=== PATIENT | male | born 1955 | race Caucasian/White ===

== ENCOUNTER 2016-11-14 19:01 | Inpatient (IN) | payer MEDICAID, OTHER ==
[~2016-11-14] VITALS: Ht 188 cm; Wt 77.1 kg
[~2016-11-14 19:01] MED LIST: BUPR-93 PO; LEVO25TA9 PO; MUPI1OIN4 NS; MV-M1TAB2 PO; QUET200T PO
[2016-11-14] MEDS ORDERED: LORazepam 2 MG TABLET PO PRN (19:30)
[2016-11-14] MEDS ORDERED: ZOLPIDEM TARTRATE 10 MG TABLET PO PRN (19:30)
[2016-11-14] MEDS ORDERED: HALOPERIDOL 5 MG TABLET PO PRN (19:30)
[2016-11-14 20:05] VITALS: BP 139/72
[2016-11-14] MEDS: QUEtiapine FUMARATE 200 MG TABLET PO SCH (21:00)
[2016-11-14] MEDS ORDERED: ACETAMINOPHEN 500 MG TABLET PO ONE (21:30)
[2016-11-14] MEDS ORDERED: LORazepam 2 MG TABLET PO ONE (21:30)
[2016-11-14 21:38] LABS: BASOPHILS # (AUTO) 0.07 K/uL (0.00-0.20); BASOPHILS % (AUTO) 0.9 % (0.0-2.0); EOSINOPHILS # (AUTO) 0.42 K/uL (0.00-0.70); EOSINOPHILS % (AUTO) 5.41 % (1.0-6.0); HEMATOCRIT 37.4 % (41-53); HEMOGLOBIN 12.4 g/dL (13.5-17.5); LYMPHOCYTES # (AUTO) 1.4 K/uL (1.0-4.8); LYMPHOCYTES % (AUTO) 18.3 % (22.0-44.0); MEAN CORPUSCULAR HEMOGLOBIN 28.6 pg (26.0-34.0); MEAN CORPUSCULAR HGB CONC 33.3 G/dL (31.0-37.0); MEAN CORPUSCULAR VOLUME 86 fL (80-100); MONOCYTES # (AUTO) 0.8 K/uL (0.1-1.0); NEUTROPHILS % (AUTO) 65.4 % (40.0-70.0); PLATELET COUNT (AUTO) 246 K/uL (150-450); RED BLOOD CELL COUNT(AUTO) 4.34 MIL/uL (4.50-5.90); RED CELL DISTRIBUTION WIDTH 16.8 % (11.5-14.5); WHITE BLOOD COUNT (AUTO) 7.7 K/uL (4.5-11.0)
[2016-11-14 21:54] LABS: ANION GAP 5 mmol/L (8-16); CARBON DIOXIDE 35 mmol/L (22-29); CHLORIDE 99 mmol/L (98-107); CREATININE 0.98 mg/dL (0.60-1.30); GLOMERULAR FILTR. RATE CALC > 60 mL/min (>60); POTASSIUM 4.8 mmol/L (3.5-5.1); SODIUM SERUM 139 mmol/L (136-145); UREA NITROGEN, BLOOD 19 mg/dL (7-18)
[2016-11-14 22:04] LABS: ALANINE AMINOTRANSFERASE 21 U/L (12-78); ALBUMIN 3.3 g/dL (3.4-5.0); ASPARTATE AMINOTRANSFERASE 16 U/L (15-37); BILIRUBIN,TOTAL 0.2 mg/dL (0.1-1.0); TOTAL PROTEIN, SERUM 7.2 g/dL (6.4-8.2)
[2016-11-15 07:20] LABS: BASOPHILS # (AUTO) 0.02 K/uL (0.00-0.20); BASOPHILS % (AUTO) 0.5 % (0.0-2.0); EOSINOPHILS # (AUTO) 0.39 K/uL (0.00-0.70); EOSINOPHILS % (AUTO) 8.77 % (1.0-6.0); HEMATOCRIT 35.3 % (41-53); HEMOGLOBIN 11.8 g/dL (13.5-17.5); LYMPHOCYTES # (AUTO) 1.4 K/uL (1.0-4.8); LYMPHOCYTES % (AUTO) 31.3 % (22.0-44.0); MEAN CORPUSCULAR HEMOGLOBIN 28.6 pg (26.0-34.0); MEAN CORPUSCULAR HGB CONC 33.4 G/dL (31.0-37.0); MEAN CORPUSCULAR VOLUME 86 fL (80-100); MONOCYTES # (AUTO) 0.5 K/uL (0.1-1.0); MONOCYTES % (AUTO) 12.1 % (2.0-9.0); NEUTROPHILS # (AUTO) 2.1 K/uL (1.8-7.7); NEUTROPHILS % (AUTO) 47.3 % (40.0-70.0); PLATELET COUNT (AUTO) 251 K/uL (150-450); RED BLOOD CELL COUNT(AUTO) 4.12 MIL/uL (4.50-5.90); RED CELL DISTRIBUTION WIDTH 16.6 % (11.5-14.5); WHITE BLOOD COUNT (AUTO) 4.5 K/uL (4.5-11.0)
[2016-11-15 07:51] LABS: HEMOGLOBIN A1C 5.7 % (4.5-6.2)
[2016-11-15 07:54] LABS: ALANINE AMINOTRANSFERASE 17 U/L (12-78); ALBUMIN 2.7 g/dL (3.4-5.0); ANION GAP 7 mmol/L (8-16); ASPARTATE AMINOTRANSFERASE 16 U/L (15-37); BILIRUBIN,TOTAL 0.2 mg/dL (0.1-1.0); CALCIUM, TOTAL 8.3 mg/dL (8.8-10.5); CARBON DIOXIDE 29 mmol/L (22-29); CHLORIDE 103 mmol/L (98-107); CHOL/HDL RATIO 2.3 (4.2-7.3); CREATININE 1.02 mg/dL (0.60-1.30); GLOMERULAR FILTR. RATE CALC > 60 mL/min (>60); POTASSIUM 3.9 mmol/L (3.5-5.1); SODIUM SERUM 139 mmol/L (136-145); THYROID STIMULATING HORMONE 8.88 uIU/mL (0.36-3.74); TOTAL PROTEIN, SERUM 6.3 g/dL (6.4-8.2); UREA NITROGEN, BLOOD 22 mg/dL (7-18)
[2016-11-15] MEDS: BuPROPion HCL XL 150 MG ER TABLET PO SCH (11:01)
[2016-11-15 12:10] LABS: APPEARANCE,URINE CLEAR (CLEAR); GLUCOSE, URINE (UA) NEGATIVE (NEGATIVE); KETONES,URINE NEGATIVE (NEGATIVE); LEUKOCYTE ESTERASE ,URINE NEGATIVE (NEGATIVE); OCCULT BLOOD,URINE NEGATIVE (NEGATIVE); PROTEIN,URINE NEGATIVE (NEGATIVE)
[2016-11-15 12:12] LABS: ADD UA MICROSCOPIC NO
[2016-11-15 17:39] VITALS: BP 134/72
[2016-11-15] MEDS: QUEtiapine FUMARATE 200 MG TABLET PO SCH (20:08)
[2016-11-16] MEDS ORDERED: LEVOTHYROXINE SODIUM 25 MCG TABLET PO SCH (07:00)
[2016-11-16 08:00] VITALS: BP 127/77
[2016-11-16] MEDS ORDERED: ALBUTEROL SULFATE HFA 90 MCG/PUFF 8 GM INHALER IH PRN (08:45)
[2016-11-16] MEDS ORDERED: PETROLATUM,WHITE 71 GM JELLY TP PRN (08:45)
[2016-11-16] MEDS ORDERED: MAGNESIUM HYDROXIDE SUSPENSION 30 ML UDCUP PO PRN (08:45)
[2016-11-16] MEDS ORDERED: CloNIDine HCL 0.1 MG TABLET PO PRN (08:45)
[2016-11-16] MEDS ORDERED: BACITRACIN 28.4 GM OINTMENT TP PRN (08:45)
[2016-11-16] MEDS ORDERED: MAG HYDROX/AL HYDROX/SIMETH ES 30 ML SUSPENSION UDCUP PO PRN (08:45)
[2016-11-16] MEDS ORDERED: IBUPROFEN 600 MG TABLET PO PRN (08:45)
[2016-11-16] MEDS ORDERED: ONDANSETRON HCL 4 MG TABLET PO PRN (08:45)
[2016-11-16] MEDS ORDERED: LOPERAMIDE HCL 2 MG CAPSULE PO PRN (08:45)
[2016-11-16] MEDS ORDERED: ACETAMINOPHEN 325 MG TABLET PO PRN (08:45)
[2016-11-16] MEDS: BACITRACIN 28.4 GM OINTMENT TP SCH ×2 (09:00→17:00)
[2016-11-16] MEDS ORDERED: BENZOCAINE/MENTHOL LOZENGE [8 LOZENGES/PACKET] MM PRN (09:00)
[2016-11-16] MEDS: BuPROPion HCL XL 150 MG ER TABLET PO SCH (10:10)
[2016-11-16] MEDS: MULTIVITAMINS WITH MINERALS, THERAPEUTIC TABLET PO SCH (10:10)
[2016-11-16] MEDS ORDERED: HYDROCORTISONE 0.5% 30 GM CREAM TP PRN (13:00)
[2016-11-16 16:37] VITALS: BP 132/71
[2016-11-16] MEDS: QUEtiapine FUMARATE 200 MG TABLET PO SCH (20:05)
[2016-11-17] MEDS: LEVOTHYROXINE SODIUM 100 MCG TABLET PO SCH (06:45)
[2016-11-17 08:00] VITALS: BP 114/67
[2016-11-17] MEDS: BACITRACIN 28.4 GM OINTMENT TP SCH ×2 (09:00→16:44)
[2016-11-17] MEDS: MULTIVITAMINS WITH MINERALS, THERAPEUTIC TABLET PO SCH (09:20)
[2016-11-17] MEDS: BuPROPion HCL XL 150 MG ER TABLET PO SCH (09:21)
[2016-11-17 16:35] VITALS: BP 142/96
[2016-11-17] MEDS: QUEtiapine FUMARATE 200 MG TABLET PO SCH (20:07)
[2016-11-18] MEDS: LEVOTHYROXINE SODIUM 100 MCG TABLET PO SCH (06:06)
[2016-11-18 06:31] VITALS: BP 120/82
[2016-11-18 08:00] VITALS: BP 116/69
[2016-11-18] MEDS: BuPROPion HCL XL 150 MG ER TABLET PO SCH (09:26)
[2016-11-18] MEDS: MULTIVITAMINS WITH MINERALS, THERAPEUTIC TABLET PO SCH (09:26)
[2016-11-18] MEDS: BACITRACIN 28.4 GM OINTMENT TP SCH ×2 (09:29→16:26)
[2016-11-18 16:51] VITALS: BP 142/101
[2016-11-18] MEDS ORDERED: LEVO100 PO (17:08)
[2016-11-18] MEDS ORDERED: BACI30OI10 TP (17:15)
== END 2016-11-18 18:52 | disposition home or self-care (01) | DRG 750 ==
LOC: EMS 20:57 → 3EI 11-15 16:52
PROVIDERS: ADMIT Psychiatry & Neurology Psychiatry; ATTEND Psychiatry & Neurology Psychiatry
DX: F25.9 Schizoaffective disorder, unspecified (principal); R45.851 Suicidal ideations; E55.9 Vitamin D deficiency, unspecified; J44.9 Chronic obstructive pulmonary disease, unspecified; B18.2 Chronic viral hepatitis C; E03.9 Hypothyroidism, unspecified; K21.9 Gastro-esophageal reflux disease without esophagitis; K59.00 Constipation, unspecified; F17.210 Nicotine dependence, cigarettes, uncomplicated; F11.90 Opioid use, unspecified, uncomplicated; Z71.41 Alcohol abuse counseling and surveillance of alcoholic; Z71.6 Tobacco abuse counseling; Z79.1 Long term (current) use of non-steroidal anti-inflammatories (NSAID); Z79.899 Other long term (current) drug therapy; Z98.890 Other specified postprocedural states; Z59.0 Homelessness; Z91.14 Patient's other noncompliance with medication regimen; M19.90 Unspecified osteoarthritis, unspecified site
CPT/HCPCS: 70450; 83036; 84439; 84443; 87081; 99285; G0480; J3535

== ENCOUNTER 2016-12-03 13:46 | Inpatient (IN) | payer MEDICAID ==
[~2016-12-03] VITALS: Ht 188 cm; Wt 73.9 kg
[~2016-12-03 13:46] MED LIST changes: +BACI30OI10 TP; +LEVO100 PO; -LEVO25TA9 PO; -MUPI1OIN4 NS
[2016-12-03 18:09] VITALS: BP 109/68
[2016-12-03] MEDS ORDERED: LORazepam 2 MG TABLET PO PRN (19:15)
[2016-12-03] MEDS ORDERED: ZOLPIDEM TARTRATE 10 MG TABLET PO PRN (19:15)
[2016-12-03] MEDS ORDERED: HALOPERIDOL 5 MG TABLET PO PRN (19:15)
[2016-12-03 19:54] VITALS: BP 107/61
[2016-12-03] MEDS ORDERED: INFLUENZA VIRUS VACCINE QVS 2016-17 (3YR+)/PF 60 MCG/0.5 ML SYRINGE IM ONE (20:15)
[2016-12-03] MEDS ORDERED: -PHARMACY VACCINE NOTE- MISC ONE ×2 (20:15)
[2016-12-03] MEDS ORDERED: QUEtiapine FUMARATE 200 MG TABLET PO SCH (21:00)
[2016-12-03] MEDS ORDERED: ALBUTEROL SULFATE HFA 90 MCG/PUFF 8 GM INHALER IH PRN (21:30)
[2016-12-04] MEDS ORDERED: LEVOTHYROXINE SODIUM 100 MCG TABLET PO SCH (06:30)
[2016-12-04 07:41] LABS: BASOPHILS % (AUTO) 0.2 % (0.0-2.0); EOSINOPHILS % (AUTO) 4.8 % (1.0-6.0); HEMATOCRIT 35.3 % (41-53); HEMOGLOBIN 11.3 g/dL (13.5-17.5); LYMPHOCYTES % (AUTO) 16.2 % (22.0-44.0); MEAN CORPUSCULAR VOLUME 87 fL (80-100); MONOCYTES # (AUTO) 0.9 K/uL (0.1-1.0); NEUTROPHILS % (AUTO) 64.8 % (40.0-70.0); PLATELET COUNT (AUTO) 216 K/uL (150-450); RED BLOOD CELL COUNT(AUTO) 4.05 MIL/uL (4.50-5.90); RED CELL DISTRIBUTION WIDTH 16.9 % (11.5-14.5); WHITE BLOOD COUNT (AUTO) 6.1 K/uL (4.5-11.0)
[2016-12-04 08:00] LABS: ALANINE AMINOTRANSFERASE 17 U/L (12-78); ALBUMIN 2.6 g/dL (3.4-5.0); ANION GAP 9 mmol/L (8-16); ASPARTATE AMINOTRANSFERASE 17 U/L (15-37); BILIRUBIN,TOTAL 0.1 mg/dL (0.1-1.0); CALCIUM, TOTAL 7.8 mg/dL (8.8-10.5); CARBON DIOXIDE 24 mmol/L (22-29); CHLORIDE 104 mmol/L (98-107); CREATININE 1.08 mg/dL (0.60-1.30); GLOMERULAR FILTR. RATE CALC > 60 mL/min (>60); POTASSIUM 4.3 mmol/L (3.5-5.1); SODIUM SERUM 137 mmol/L (136-145); TOTAL PROTEIN, SERUM 5.6 g/dL (6.4-8.2); UREA NITROGEN, BLOOD 21 mg/dL (7-18)
[2016-12-04 08:30] VITALS: BP 109/60
[2016-12-04] MEDS ORDERED: MAG HYDROX/AL HYDROX/SIMETH ES 30 ML SUSPENSION UDCUP PO PRN (08:45)
[2016-12-04] MEDS ORDERED: BACITRACIN 28.4 GM OINTMENT TP PRN (08:45)
[2016-12-04] MEDS ORDERED: ONDANSETRON HCL 4 MG TABLET PO PRN (08:45)
[2016-12-04] MEDS ORDERED: FLUTICASONE PROPIONATE 50 MCG/SPRAY 16 GM NASAL SPRAY NASAL PRN (08:45)
[2016-12-04] MEDS ORDERED: LOPERAMIDE HCL 2 MG CAPSULE PO PRN (08:45)
[2016-12-04] MEDS ORDERED: ACETAMINOPHEN 325 MG TABLET PO PRN (08:45)
[2016-12-04] MEDS ORDERED: IBUPROFEN 600 MG TABLET PO PRN (08:45)
[2016-12-04] MEDS ORDERED: PETROLATUM,WHITE 71 GM JELLY TP PRN (08:45)
[2016-12-04] MEDS ORDERED: CloNIDine HCL 0.1 MG TABLET PO PRN (08:45)
[2016-12-04] MEDS ORDERED: ALBUTEROL SULFATE HFA 90 MCG/PUFF 8 GM INHALER IH PRN (08:45)
[2016-12-04] MEDS ORDERED: MAGNESIUM HYDROXIDE SUSPENSION 30 ML UDCUP PO PRN (08:45)
[2016-12-04] MEDS ORDERED: IPRATROPIUM BROMIDE 0.5 MG/2.5 ML NEB SOLUTION NEB PRN (08:45)
[2016-12-04] MEDS ORDERED: GuaiFENesin/D-METHORPHAN/PHENYLEPH 5 ML LIQUID ORAL.SYG PO PRN (08:45)
[2016-12-04] MEDS ORDERED: ALBUTEROL SULFATE 2.5 MG/0.5 ML NEB SOLUTION NEB PRN (08:45)
[2016-12-04] MEDS ORDERED: NICOTINE 21 MG/24 HOUR PATCH TD SCH (09:00)
[2016-12-04] MEDS ORDERED: BENZOCAINE/MENTHOL LOZENGE MM PRN (09:00)
[2016-12-04] MEDS ORDERED: DOCUSATE SODIUM 100 MG CAPSULE PO SCH (09:00)
[2016-12-04] MEDS ORDERED: MULTIVITAMINS WITH MINERALS, THERAPEUTIC TABLET PO SCH (09:00)
[2016-12-04] MEDS ORDERED: OMEPRAZOLE 20 MG CAPSULE PO SCH (09:00)
[2016-12-04] MEDS ORDERED: BuPROPion HCL XL 150 MG ER TABLET PO SCH (09:00)
[2016-12-04] MEDS ORDERED: BENZOCAINE/MENTHOL LOZENGE [8 LOZENGES/PACKET] MM PRN (09:00)
[2016-12-04 09:55] VITALS: BP 88/47
[2016-12-04 10:00] VITALS: BP 95/58
[2016-12-04 13:21] LABS: GLUCOSE,POINT OF CARE 108 MG/DL (70-110)
[2016-12-04] MEDS ORDERED: OMEP20 PO (17:30)
[2016-12-04] MEDS ORDERED: DSS100 PO (17:30)
== END 2016-12-04 17:43 | disposition short-term general hospital (02) | DRG 750 ==
LOC: B2S 19:00 → EDSTATUS 19:43
PROVIDERS: ADMIT Psychiatry & Neurology Psychiatry; ATTEND Psychiatry & Neurology Psychiatry
DX: F25.9 Schizoaffective disorder, unspecified (principal); E44.0 Moderate protein-calorie malnutrition; J44.0 Chronic obstructive pulmonary disease with (acute) lower respiratory infection; Z91.14 Patient's other noncompliance with medication regimen; F20.0 Paranoid schizophrenia; J44.9 Chronic obstructive pulmonary disease, unspecified; E03.9 Hypothyroidism, unspecified; K21.9 Gastro-esophageal reflux disease without esophagitis; J20.9 Acute bronchitis, unspecified; B18.2 Chronic viral hepatitis C; K59.00 Constipation, unspecified; F17.200 Nicotine dependence, unspecified, uncomplicated; Z68.20 Body mass index [BMI] 20.0-20.9, adult; Z28.21 Immunization not carried out because of patient refusal; Z59.0 Homelessness; Z71.6 Tobacco abuse counseling
CPT/HCPCS: 82962; 87081; J3535

== ENCOUNTER 2016-12-04 10:38 | Inpatient (IN) | payer MEDICAID, OTHER ==
[~2016-12-04] VITALS: Ht 188 cm; Wt 81.0 kg
[2016-12-04] MEDS ORDERED: SODIUM CHLORIDE 0.9% 1,000 ML IV ONE ×2 (14:00→14:30)
[2016-12-04] MEDS ORDERED: CefTRIAXone 1 GM/DEXTROSE 50 ML IV ONE (14:30)
[2016-12-04] MEDS ORDERED: AZITHROMYCIN 500 MG/NS 250 ML IV ONE (14:30)
[2016-12-04] MEDS ORDERED: PredniSONE 20 MG TABLET PO ONE (14:45)
[2016-12-04] MEDS ORDERED: ALBUTEROL SULFATE 5 MG/ML 20 ML NEB SOLN [BULK] NEB ONE (14:45)
[2016-12-04] MEDS ORDERED: IPRATROPIUM BROMIDE 0.5 MG/2.5 ML NEB SOLUTION NEB ONE (14:45)
[2016-12-04 14:46] LABS: BASOPHILS % (AUTO) 0.2 % (0.0-2.0); EOSINOPHILS % (AUTO) 3.6 % (1.0-6.0); HEMATOCRIT 35.4 % (41-53); HEMOGLOBIN 11.3 g/dL (13.5-17.5); LYMPHOCYTES # (AUTO) 1.2 K/uL (1.0-4.8); MEAN CORPUSCULAR HEMOGLOBIN 27.8 pg (26.0-34.0); MEAN CORPUSCULAR VOLUME 87 fL (80-100); MONOCYTES % (AUTO) 12.2 % (2.0-9.0); NEUTROPHILS # (AUTO) 5.3 K/uL (1.8-7.7); PLATELET COUNT (AUTO) 202 K/uL (150-450); RED BLOOD CELL COUNT(AUTO) 4.07 MIL/uL (4.50-5.90); RED CELL DISTRIBUTION WIDTH 17.5 % (11.5-14.5); WHITE BLOOD COUNT (AUTO) 7.8 K/uL (4.5-11.0)
[2016-12-04 14:53] LABS: ANION GAP 7 mmol/L (8-16); CALCIUM, TOTAL 8.1 mg/dL (8.8-10.5); CARBON DIOXIDE 28 mmol/L (22-29); CHLORIDE 104 mmol/L (98-107); CREATININE 1.16 mg/dL (0.60-1.30); GLOMERULAR FILTR. RATE CALC > 60 mL/min (>60); POTASSIUM 3.9 mmol/L (3.5-5.1); SODIUM SERUM 139 mmol/L (136-145); UREA NITROGEN, BLOOD 21 mg/dL (7-18)
[2016-12-04 14:59] LABS: ALANINE AMINOTRANSFERASE 15 U/L (12-78); ALBUMIN 2.6 g/dL (3.4-5.0); ASPARTATE AMINOTRANSFERASE 14 U/L (15-37); BILIRUBIN,TOTAL 0.1 mg/dL (0.1-1.0); TOTAL PROTEIN, SERUM 6.1 g/dL (6.4-8.2)
[2016-12-04] MEDS ORDERED: 0.9% SODIUM CHLORIDE 5 ML NEB SOLUTION NEB ONE (15:02)
[2016-12-04 15:08] LABS: RBC MORPHOLOGY COMMENT ABNORMAL RBC MORPH
[2016-12-04 17:02] VITALS: BP 93/79
[2016-12-04] MEDS ORDERED: OMEP20 PO (17:30)
[2016-12-04] MEDS ORDERED: INFLUENZA VIRUS VACCINE QVS 2016-17 (3YR+)/PF 60 MCG/0.5 ML SYRINGE IM ONE (17:30)
[2016-12-04] MEDS ORDERED: DSS100 PO (17:30)
[2016-12-04 19:29] VITALS: BP 129/69
[2016-12-04] MEDS ORDERED: IPRATROPIUM BROMIDE 0.5 MG/2.5 ML NEB SOLUTION NEB PRN (20:30)
[2016-12-04] MEDS: QUEtiapine FUMARATE 200 MG TABLET PO SCH (20:48)
[2016-12-04] MEDS ORDERED: MAG HYDROX/AL HYDROX/SIMETH ES 30 ML SUSPENSION UDCUP PO PRN (22:00)
[2016-12-04] MEDS ORDERED: ALBUTEROL SULFATE 2.5 MG/0.5 ML NEB SOLUTION NEB PRN (22:00)
[2016-12-04] MEDS ORDERED: ACETAMINOPHEN 325 MG TABLET PO PRN (22:15)
[2016-12-04] MEDS: ALBUTEROL SULFATE 2.5 MG/0.5 ML NEB SOLUTION NEB SCH (23:00)
[2016-12-04] MEDS: IPRATROPIUM BROMIDE 0.5 MG/2.5 ML NEB SOLUTION NEB SCH (23:00)
[2016-12-04 23:56] VITALS: BP 93/54
[2016-12-05] MEDS: ALBUTEROL SULFATE 2.5 MG/0.5 ML NEB SOLUTION NEB SCH ×6 (03:00→23:00)
[2016-12-05 04:30] VITALS: BP 104/62
[2016-12-05] MEDS: LEVOTHYROXINE SODIUM 100 MCG TABLET PO SCH (06:06)
[2016-12-05 07:10] VITALS: BP 106/62
[2016-12-05] MEDS: IPRATROPIUM BROMIDE 0.5 MG/2.5 ML NEB SOLUTION NEB SCH ×5 (08:23→23:00)
[2016-12-05 11:39] VITALS: BP 132/77
[2016-12-05] MEDS: BuPROPion HCL XL 150 MG ER TABLET PO SCH (11:45)
[2016-12-05] MEDS ORDERED: SODIUM CHLORIDE 0.9% 250 ML IV ONE (12:03)
[2016-12-05] MEDS: CefTRIAXone 1 GM/DEXTROSE 50 ML IV SCH (14:22)
[2016-12-05] MEDS: AZITHROMYCIN 500 MG/NS 250 ML IV SCH (15:12)
[2016-12-05 15:53] VITALS: BP 122/75
[2016-12-05 19:10] VITALS: BP 159/93
[2016-12-05] MEDS: QUEtiapine FUMARATE 200 MG TABLET PO SCH (20:22)
[2016-12-05 23:05] VITALS: BP 137/80
[2016-12-06] MEDS: ALBUTEROL SULFATE 2.5 MG/0.5 ML NEB SOLUTION NEB SCH ×6 (03:00→22:46)
[2016-12-06 04:13] VITALS: BP 105/64
[2016-12-06] MEDS: LEVOTHYROXINE SODIUM 100 MCG TABLET PO SCH (05:35)
[2016-12-06] MEDS: IPRATROPIUM BROMIDE 0.5 MG/2.5 ML NEB SOLUTION NEB SCH ×5 (07:04→22:47)
[2016-12-06 07:31] VITALS: BP 141/62
[2016-12-06] MEDS: BuPROPion HCL XL 150 MG ER TABLET PO SCH (08:48)
[2016-12-06 11:34] VITALS: BP 120/63
[2016-12-06] MEDS ORDERED: ALBU8HFA IH (12:25)
[2016-12-06] MEDS ORDERED: LEVO500 PO (12:25)
[2016-12-06] MEDS: CefTRIAXone 1 GM/DEXTROSE 50 ML IV SCH (13:39)
[2016-12-06] MEDS: AZITHROMYCIN 500 MG/NS 250 ML IV SCH (14:46)
[2016-12-06 15:25] VITALS: BP 111/62
[2016-12-06] MEDS ORDERED: BISACODYL 10 MG RECTAL RECTAL SUPPOSITORY PR PRN (16:15)
[2016-12-06] MEDS ORDERED: ACETAMINOPHEN 325 MG TABLET PO PRN (16:15)
[2016-12-06] MEDS ORDERED: HYDROCODONE/ACETAMINOPHEN 5-325 MG TABLET PO PRN (16:15)
[2016-12-06] MEDS ORDERED: IPRATROPIUM BROMIDE 0.5 MG/2.5 ML NEB SOLUTION NEB PRN (16:15)
[2016-12-06] MEDS ORDERED: 0.9% SODIUM CHLORIDE 10 ML SYRINGE IVP PRN (16:15)
[2016-12-06] MEDS ORDERED: MAGNESIUM HYDROXIDE SUSPENSION 30 ML UDCUP PO PRN (16:15)
[2016-12-06] MEDS ORDERED: ALBUTEROL SULFATE 2.5 MG/0.5 ML NEB SOLUTION NEB PRN (16:15)
[2016-12-06] MEDS ORDERED: MORPHINE SULFATE 2 MG/ML SYRINGE IVP PRN (16:15)
[2016-12-06] MEDS ORDERED: ZOLPIDEM TARTRATE 5 MG TABLET PO PRN (16:15)
[2016-12-06] MEDS: DOCUSATE SODIUM 100 MG CAPSULE PO SCH (20:05)
[2016-12-06] MEDS: QUEtiapine FUMARATE 200 MG TABLET PO SCH (20:05)
[2016-12-06 20:15] VITALS: BP 153/74
[2016-12-06 23:39] VITALS: BP 119/69
[2016-12-06] MEDS: HEPARIN SODIUM,PORCINE 5,000 UNITS/ML VIAL SQ SCH (23:56)
[2016-12-07] MEDS: ALBUTEROL SULFATE 2.5 MG/0.5 ML NEB SOLUTION NEB SCH ×6 (02:16→23:00)
[2016-12-07 04:15] VITALS: BP 122/72
[2016-12-07] MEDS: LEVOTHYROXINE SODIUM 100 MCG TABLET PO SCH (06:06)
[2016-12-07] MEDS: HEPARIN SODIUM,PORCINE 5,000 UNITS/ML VIAL SQ SCH ×3 (08:00→20:02)
[2016-12-07 08:28] VITALS: BP 124/81
[2016-12-07] MEDS: IPRATROPIUM BROMIDE 0.5 MG/2.5 ML NEB SOLUTION NEB SCH ×5 (08:31→23:00)
[2016-12-07] MEDS: PANTOPRAZOLE SODIUM 40 MG/VIAL IVP SCH (08:49)
[2016-12-07] MEDS: BuPROPion HCL XL 150 MG ER TABLET PO SCH (08:49)
[2016-12-07] MEDS: DOCUSATE SODIUM 100 MG CAPSULE PO SCH ×2 (08:53→21:00)
[2016-12-07 11:05] VITALS: BP 129/71
[2016-12-07] MEDS: CefTRIAXone 1 GM/DEXTROSE 50 ML IV SCH (14:09)
[2016-12-07] MEDS: AZITHROMYCIN 500 MG/NS 250 ML IV SCH (14:44)
[2016-12-07 16:13] VITALS: BP 110/76
[2016-12-07 19:45] VITALS: BP 134/93
[2016-12-07] MEDS: QUEtiapine FUMARATE 200 MG TABLET PO SCH (20:01)
[2016-12-07 23:46] VITALS: BP 98/65
[2016-12-08] MEDS: ALBUTEROL SULFATE 2.5 MG/0.5 ML NEB SOLUTION NEB SCH ×6 (03:00→23:00)
[2016-12-08 05:19] VITALS: BP 107/63
[2016-12-08 06:14] LABS: BASOPHILS # (AUTO) 0.05 K/uL (0.00-0.20); BASOPHILS % (AUTO) 0.8 % (0.0-2.0); EOSINOPHILS # (AUTO) 0.36 K/uL (0.00-0.70); EOSINOPHILS % (AUTO) 5.67 % (1.0-6.0); HEMOGLOBIN 12.5 g/dL (13.5-17.5); LYMPHOCYTES # (AUTO) 1.6 K/uL (1.0-4.8); LYMPHOCYTES % (AUTO) 24.8 % (22.0-44.0); MEAN CORPUSCULAR HEMOGLOBIN 27.9 pg (26.0-34.0); MEAN CORPUSCULAR HGB CONC 32.2 G/dL (31.0-37.0); MEAN CORPUSCULAR VOLUME 87 fL (80-100); MONOCYTES # (AUTO) 0.6 K/uL (0.1-1.0); MONOCYTES % (AUTO) 9.4 % (2.0-9.0); NEUTROPHILS # (AUTO) 3.8 K/uL (1.8-7.7); NEUTROPHILS % (AUTO) 59.4 % (40.0-70.0); PLATELET COUNT (AUTO) 275 K/uL (150-450); RED CELL DISTRIBUTION WIDTH 17.2 % (11.5-14.5); WHITE BLOOD COUNT (AUTO) 6.4 K/uL (4.5-11.0)
[2016-12-08] MEDS: LEVOTHYROXINE SODIUM 100 MCG TABLET PO SCH (06:18)
[2016-12-08 06:52] LABS: ALANINE AMINOTRANSFERASE 19 U/L (12-78); ALBUMIN 2.7 g/dL (3.4-5.0); ANION GAP 6 mmol/L (8-16); ASPARTATE AMINOTRANSFERASE 10 U/L (15-37); BILIRUBIN,TOTAL 0.1 mg/dL (0.1-1.0); CALCIUM, TOTAL 8.6 mg/dL (8.8-10.5); CARBON DIOXIDE 28 mmol/L (22-29); CHLORIDE 101 mmol/L (98-107); CREATININE 1.13 mg/dL (0.60-1.30); GLOMERULAR FILTR. RATE CALC > 60 mL/min (>60); POTASSIUM 4.3 mmol/L (3.5-5.1); SODIUM SERUM 135 mmol/L (136-145); TOTAL PROTEIN, SERUM 6.6 g/dL (6.4-8.2); UREA NITROGEN, BLOOD 19 mg/dL (7-18)
[2016-12-08] MEDS: BuPROPion HCL XL 150 MG ER TABLET PO SCH (07:02)
[2016-12-08 07:46] VITALS: BP 113/92
[2016-12-08] MEDS: IPRATROPIUM BROMIDE 0.5 MG/2.5 ML NEB SOLUTION NEB SCH ×5 (08:38→23:00)
[2016-12-08] MEDS: HEPARIN SODIUM,PORCINE 5,000 UNITS/ML VIAL SQ SCH ×3 (08:50→23:43)
[2016-12-08] MEDS: DOCUSATE SODIUM 100 MG CAPSULE PO SCH ×2 (08:50→20:09)
[2016-12-08 08:51] LABS: RBC MORPHOLOGY COMMENT ABNORMAL RBC MORPH
[2016-12-08] MEDS: PANTOPRAZOLE SODIUM 40 MG/VIAL IVP SCH (09:32)
[2016-12-08 11:55] VITALS: BP 130/99
[2016-12-08] MEDS: AZITHROMYCIN 500 MG/NS 250 ML IV SCH (15:26)
[2016-12-08 17:18] VITALS: BP 121/96
[2016-12-08] MEDS: CefTRIAXone 1 GM/DEXTROSE 50 ML IV SCH (17:28)
[2016-12-08 19:43] VITALS: BP 138/86
[2016-12-08] MEDS: QUEtiapine FUMARATE 200 MG TABLET PO SCH (20:09)
[2016-12-08 23:31] VITALS: BP 95/59
[2016-12-09] MEDS: ALBUTEROL SULFATE 2.5 MG/0.5 ML NEB SOLUTION NEB SCH ×3 (03:00→11:00)
[2016-12-09 05:30] VITALS: BP 107/82
[2016-12-09] MEDS: LEVOTHYROXINE SODIUM 100 MCG TABLET PO SCH (06:14)
[2016-12-09] MEDS: BuPROPion HCL XL 150 MG ER TABLET PO SCH (06:30)
[2016-12-09] MEDS: IPRATROPIUM BROMIDE 0.5 MG/2.5 ML NEB SOLUTION NEB SCH ×2 (07:24→11:00)
[2016-12-09 07:27] VITALS: BP 126/95
[2016-12-09] MEDS: HEPARIN SODIUM,PORCINE 5,000 UNITS/ML VIAL SQ SCH (08:00)
[2016-12-09] MEDS: PANTOPRAZOLE SODIUM 40 MG/VIAL IVP SCH (08:18)
[2016-12-09] MEDS: DOCUSATE SODIUM 100 MG CAPSULE PO SCH (08:19)
[2016-12-09 11:29] VITALS: BP 133/91
[2016-12-09] MEDS ORDERED: CIPR-278 PO (12:30)
[2016-12-09] MEDS: CefTRIAXone 1 GM/DEXTROSE 50 ML IV SCH (14:00)
[2016-12-09] MEDS: AZITHROMYCIN 500 MG/NS 250 ML IV SCH (14:02)
== END 2016-12-09 14:25 | disposition home or self-care (01) | DRG 140 ==
LOC: EMS 10:39 → EEVIPCON 10:39 → 6N 16:21
PROVIDERS: ADMIT Hospitalist; ATTEND Hospitalist
PROC: 3E0234Z Introduction of Serum, Toxoid and Vaccine into Muscle, Percutaneous Approach (ICD-10-PCS; principal; 2016-12-04)
DX: J44.0 Chronic obstructive pulmonary disease with (acute) lower respiratory infection (principal); J18.1 Lobar pneumonia, unspecified organism; E44.0 Moderate protein-calorie malnutrition; J44.1 Chronic obstructive pulmonary disease with (acute) exacerbation; F20.9 Schizophrenia, unspecified; E03.9 Hypothyroidism, unspecified; F31.9 Bipolar disorder, unspecified; R00.0 Tachycardia, unspecified; K21.9 Gastro-esophageal reflux disease without esophagitis; F17.210 Nicotine dependence, cigarettes, uncomplicated; B19.20 Unspecified viral hepatitis C without hepatic coma; K59.00 Constipation, unspecified; D64.9 Anemia, unspecified; E88.09 Other disorders of plasma-protein metabolism, not elsewhere classified; Z68.22 Body mass index [BMI] 22.0-22.9, adult; Z87.01 Personal history of pneumonia (recurrent); Z79.899 Other long term (current) drug therapy; Z86.14 Personal history of Methicillin resistant Staphylococcus aureus infection; Z98.890 Other specified postprocedural states; Z23 Encounter for immunization; Z59.0 Homelessness; Z71.6 Tobacco abuse counseling
CPT/HCPCS: 87040; 87081; 87205; 90471; 94640; 94644; 96360; 96365; 96368; 99285; C9113; J0456; J0696; J1644; J7030; J7050

== ENCOUNTER 2016-12-30 10:07 | Inpatient (IN) | payer OTHER ==
[~2016-12-30] VITALS: Ht 185.4 cm; Wt 75.4 kg
[~2016-12-30 10:07] MED LIST changes: +ALBU8HFA IH; -BACI30OI10 TP; +CIPR-278 PO; +DSS100 PO; -MV-M1TAB2 PO; +OMEP20 PO
[2016-12-30] MEDS ORDERED: DIAZ5 PO (10:22)
[2016-12-30] MEDS ORDERED: IPRATROPIUM BROMIDE 0.5 MG/2.5 ML NEB SOLUTION NEB ONE ×2 (10:45→13:15)
[2016-12-30] MEDS ORDERED: ALBUTEROL SULFATE 5 MG/ML 20 ML NEB SOLN [BULK] NEB ONE ×2 (10:45→13:15)
[2016-12-30] MEDS ORDERED: MethylPREDNISolone SOD SUCC 125 MG/2 ML VIAL IVP ONE (10:45)
[2016-12-30 11:28] LABS: EOSINOPHILS % (AUTO) 0 % (1.0-6.0); HEMATOCRIT 40.2 % (41-53); HEMOGLOBIN 12.9 g/dL (13.5-17.5); LYMPHOCYTES # (AUTO) 0.8 K/uL (1.0-4.8); LYMPHOCYTES % (AUTO) 4.3 % (22.0-44.0); MEAN CORPUSCULAR HEMOGLOBIN 27.9 pg (26.0-34.0); MEAN CORPUSCULAR VOLUME 87 fL (80-100); MONOCYTES # (AUTO) 1.8 K/uL (0.1-1.0); MONOCYTES % (AUTO) 9.2 % (2.0-9.0); NEUTROPHILS # (AUTO) 16.8 K/uL (1.8-7.7); PLATELET COUNT (AUTO) 156 K/uL (150-450); RED BLOOD CELL COUNT(AUTO) 4.61 MIL/uL (4.50-5.90); RED CELL DISTRIBUTION WIDTH 16.2 % (11.5-14.5); WHITE BLOOD COUNT (AUTO) 19.4 K/uL (4.5-11.0)
[2016-12-30 11:33] LABS: NEUTROPHILS % (AUTO) 86.5 % (40.0-70.0)
[2016-12-30 11:37] LABS: ANION GAP 9 mmol/L (8-16); CALCIUM, TOTAL 8.4 mg/dL (8.8-10.5); CARBON DIOXIDE 29 mmol/L (22-29); CHLORIDE 98 mmol/L (98-107); CREATININE 3.29 mg/dL (0.60-1.30); GLOMERULAR FILTR. RATE CALC 19 mL/min (>60); POTASSIUM 5.4 mmol/L (3.5-5.1); SODIUM SERUM 136 mmol/L (136-145); UREA NITROGEN, BLOOD 45 mg/dL (7-18)
[2016-12-30 11:38] LABS: SALICYLATE < 2.8 mg/dL (2.8-20.0)
[2016-12-30 12:00] LABS: B-TYPE NATRIURETIC PEPTIDE 40 pg/mL (0-100)
[2016-12-30 12:10] LABS: ALANINE AMINOTRANSFERASE 27 U/L (12-78); ALBUMIN 3.5 g/dL (3.4-5.0); ASPARTATE AMINOTRANSFERASE 72 U/L (15-37); BILIRUBIN,TOTAL 0.5 mg/dL (0.1-1.0); CREATINE KINASE MB 61.4 ng/mL (0-5); TOTAL PROTEIN, SERUM 6.9 g/dL (6.4-8.2)
[2016-12-30 12:11] LABS: CREATINE KINASE, TOTAL 2498 U/L (39-308)
[2016-12-30 12:29] LABS: ACETAMINOPHEN < 2 mcg/mL (10-30)
[2016-12-30] MEDS ORDERED: SODIUM CHLORIDE 0.9% 1,000 ML IV ONE ×3 (12:30→16:30)
[2016-12-30 16:11] LABS: APPEARANCE,URINE SLIGHTLY CLOUDY (CLEAR); GLUCOSE, URINE (UA) NEGATIVE (NEGATIVE); OCCULT BLOOD,URINE LARGE (NEGATIVE); PH,URINE 5.5 (5.0-8.0); PROTEIN,URINE POS 1+ (NEGATIVE)
[2016-12-30 16:12] LABS: KETONES,URINE NEGATIVE (NEGATIVE); LEUKOCYTE ESTERASE ,URINE NEGATIVE (NEGATIVE)
[2016-12-30 16:13] LABS: ADD UA MICROSCOPIC YES
[2016-12-30 16:20] LABS: SQUAMOUS EPITHELIAL CELL,UR Rare /LPF (None Seen); WBC,URINE 0-2 /HPF (0-5)
[2016-12-30] MEDS ORDERED: ACETAMINOPHEN 325 MG TABLET PO PRN ×2 (16:30→20:15)
[2016-12-30] MEDS ORDERED: ONDANSETRON HCL 4 MG/2 ML VIAL IVP PRN (16:30)
[2016-12-30] MEDS: ALBUTEROL SULFATE 2.5 MG/0.5 ML NEB SOLUTION NEB SCH ×2 (19:00→23:00)
[2016-12-30] MEDS: IPRATROPIUM BROMIDE 0.5 MG/2.5 ML NEB SOLUTION NEB SCH ×2 (19:00→23:00)
[2016-12-30] MEDS ORDERED: BISACODYL 10 MG RECTAL RECTAL SUPPOSITORY PR PRN (20:15)
[2016-12-30] MEDS ORDERED: IPRATROPIUM BROMIDE 0.5 MG/2.5 ML NEB SOLUTION NEB PRN (20:15)
[2016-12-30] MEDS ORDERED: ALBUTEROL SULFATE 2.5 MG/0.5 ML NEB SOLUTION NEB PRN (20:15)
[2016-12-30] MEDS ORDERED: DEXTROSE 50%-WATER 25 GM/50 ML SYRINGE IVP PRN (20:30)
[2016-12-30] MEDS ORDERED: SODIUM CHLORIDE 0.9% 1,000 ML IV SCH (20:30)
[2016-12-30 21:12] VITALS: BP 148/54
[2016-12-30] MEDS: PANTOPRAZOLE SODIUM 40 MG DR TABLET PO SCH (21:13)
[2016-12-30] MEDS: HEPARIN SODIUM,PORCINE 5,000 UNITS/ML VIAL SQ SCH (21:13)
[2016-12-30] MEDS: DOCUSATE SODIUM 100 MG CAPSULE PO SCH (21:13)
[2016-12-30] MEDS: AZITHROMYCIN 500 MG/NS 250 ML IV SCH (21:30)
[2016-12-30] MEDS ORDERED: BuPROPion HCL XL 150 MG ER TABLET PO SCH (22:30)
[2016-12-30] MEDS ORDERED: QUEtiapine FUMARATE 200 MG TABLET PO PRN (22:30)
[2016-12-30] MEDS ORDERED: -PHARMACY VACCINE NOTE- MISC ONE ×2 (23:45)
[2016-12-30] MEDS: QUEtiapine FUMARATE 200 MG TABLET PO SCH (23:53)
[2016-12-30] MEDS: MethylPREDNISolone SOD SUCC 125 MG/2 ML VIAL IVP SCH (23:53)
[2016-12-31] MEDS ORDERED: HEPARIN SODIUM,PORCINE 5,000 UNITS/ML VIAL SQ SCH
[2016-12-31 00:24] VITALS: BP 101/60
[2016-12-31] MEDS: ALBUTEROL SULFATE 2.5 MG/0.5 ML NEB SOLUTION NEB SCH ×2 (03:00→07:00)
[2016-12-31] MEDS: IPRATROPIUM BROMIDE 0.5 MG/2.5 ML NEB SOLUTION NEB SCH ×2 (03:00→07:00)
[2016-12-31] MEDS: MethylPREDNISolone SOD SUCC 125 MG/2 ML VIAL IVP SCH ×3 (06:44→17:51)
[2016-12-31 07:21] VITALS: BP 128/71
[2016-12-31] MEDS: HEPARIN SODIUM,PORCINE 5,000 UNITS/ML VIAL SQ SCH ×3 (09:00→20:50)
[2016-12-31] MEDS: DOCUSATE SODIUM 100 MG CAPSULE PO SCH ×2 (09:04→20:50)
[2016-12-31] MEDS: PANTOPRAZOLE SODIUM 40 MG DR TABLET PO SCH (09:04)
[2016-12-31 11:00] LABS: EOSINOPHILS % (AUTO) 0 % (1.0-6.0); HEMATOCRIT 35.4 % (41-53); HEMOGLOBIN 11.3 g/dL (13.5-17.5); LYMPHOCYTES # (AUTO) 0.4 K/uL (1.0-4.8); LYMPHOCYTES % (AUTO) 3.2 % (22.0-44.0); MEAN CORPUSCULAR HEMOGLOBIN 27.7 pg (26.0-34.0); MEAN CORPUSCULAR HGB CONC 31.8 G/dL (31.0-37.0); MEAN CORPUSCULAR VOLUME 87 fL (80-100); MONOCYTES # (AUTO) 0.3 K/uL (0.1-1.0); NEUTROPHILS # (AUTO) 12.5 K/uL (1.8-7.7); PLATELET COUNT (AUTO) 131 K/uL (150-450); RED BLOOD CELL COUNT(AUTO) 4.07 MIL/uL (4.50-5.90); RED CELL DISTRIBUTION WIDTH 16.5 % (11.5-14.5); WHITE BLOOD COUNT (AUTO) 13.2 K/uL (4.5-11.0)
[2016-12-31 11:05] LABS: NEUTROPHILS % (AUTO) 94.8 % (40.0-70.0); RBC MORPHOLOGY COMMENT NORMAL RBC MORPH
[2016-12-31 11:11] LABS: CALCIUM, TOTAL 8.6 mg/dL (8.8-10.5); CREATININE 1.5 mg/dL (0.60-1.30); POTASSIUM 5.3 mmol/L (3.5-5.1)
[2016-12-31 11:18] VITALS: BP 142/69
[2016-12-31] MEDS ORDERED: SODIUM BICARBONATE [ADULT] 8.4% 50 MEQ/50 ML SYRINGE IVP ONE (11:31)
[2016-12-31] MEDS: SODIUM BICARBONATE 50 MEQ in DEXTROSE 5%-0.45% SODIUM CHL 1,000 ML IV SCH (11:37)
[2016-12-31] MEDS: DIAZEPAM 5 MG TABLET PO SCH (13:53)
[2016-12-31] MEDS: INSULIN ASPART 100 UNITS/ML SQ PRN (13:54)
[2016-12-31] MEDS: BuPROPion HCL XL 150 MG ER TABLET PO SCH (13:55)
[2016-12-31 15:29] VITALS: BP 129/79
[2016-12-31 18:57] LABS: GLUCOSE COMMENT 1 Received Meds; GLUCOSE,POINT OF CARE 164 MG/DL (70-110)
[2016-12-31 19:47] VITALS: BP 110/72
[2016-12-31] MEDS: QUEtiapine FUMARATE 200 MG TABLET PO SCH (20:50)
[2016-12-31] MEDS: AZITHROMYCIN 500 MG/NS 250 ML IV SCH (20:51)
[2016-12-31 23:43] VITALS: BP 100/60
[2017-01-01] VITALS (7 sets, daily range): BP systolic 118–156; BP diastolic 72–103
[2017-01-01] MEDS: MethylPREDNISolone SOD SUCC 125 MG/2 ML VIAL IVP SCH ×3 (00:56→11:56)
[2017-01-01] MEDS: SODIUM BICARBONATE 50 MEQ in DEXTROSE 5%-0.45% SODIUM CHL 1,000 ML IV SCH ×4 (00:57→20:32)
[2017-01-01 07:41] LABS: EOSINOPHILS % (AUTO) 0 % (1.0-6.0); HEMATOCRIT 33.5 % (41-53); HEMOGLOBIN 10.8 g/dL (13.5-17.5); LYMPHOCYTES # (AUTO) 0.5 K/uL (1.0-4.8); LYMPHOCYTES % (AUTO) 5.2 % (22.0-44.0); MEAN CORPUSCULAR HGB CONC 32.2 G/dL (31.0-37.0); MEAN CORPUSCULAR VOLUME 87 fL (80-100); MONOCYTES # (AUTO) 0.5 K/uL (0.1-1.0); MONOCYTES % (AUTO) 4.3 % (2.0-9.0); NEUTROPHILS # (AUTO) 9.5 K/uL (1.8-7.7); PLATELET COUNT (AUTO) 130 K/uL (150-450); RED BLOOD CELL COUNT(AUTO) 3.86 MIL/uL (4.50-5.90); RED CELL DISTRIBUTION WIDTH 16.4 % (11.5-14.5); WHITE BLOOD COUNT (AUTO) 10.5 K/uL (4.5-11.0)
[2017-01-01] MEDS: BuPROPion HCL XL 150 MG ER TABLET PO SCH (07:51)
[2017-01-01] MEDS: PANTOPRAZOLE SODIUM 40 MG DR TABLET PO SCH (07:51)
[2017-01-01] MEDS: DOCUSATE SODIUM 100 MG CAPSULE PO SCH ×2 (07:51→20:29)
[2017-01-01] MEDS: DIAZEPAM 5 MG TABLET PO SCH (07:51)
[2017-01-01 07:52] LABS: NEUTROPHILS % (AUTO) 90.5 % (40.0-70.0)
[2017-01-01] MEDS: HEPARIN SODIUM,PORCINE 5,000 UNITS/ML VIAL SQ SCH ×2 (07:52→20:30)
[2017-01-01 07:56] LABS: ALANINE AMINOTRANSFERASE 36 U/L (12-78); ANION GAP 8 mmol/L (8-16); ASPARTATE AMINOTRANSFERASE 58 U/L (15-37); BILIRUBIN,TOTAL 0.3 mg/dL (0.1-1.0); CALCIUM, TOTAL 8.6 mg/dL (8.8-10.5); CARBON DIOXIDE 28 mmol/L (22-29); CHLORIDE 102 mmol/L (98-107); GLOMERULAR FILTR. RATE CALC > 60 mL/min (>60); POTASSIUM 4.2 mmol/L (3.5-5.1); SODIUM SERUM 138 mmol/L (136-145); TOTAL PROTEIN, SERUM 6.2 g/dL (6.4-8.2); UREA NITROGEN, BLOOD 29 mg/dL (7-18)
[2017-01-01 14:06] LABS: CREATINE KINASE MB 5.1 ng/mL (0-5)
[2017-01-01] MEDS: INSULIN ASPART 100 UNITS/ML SQ PRN (18:15)
[2017-01-01] MEDS: QUEtiapine FUMARATE 200 MG TABLET PO SCH (20:30)
[2017-01-01] MEDS: AZITHROMYCIN 500 MG/NS 250 ML IV SCH (20:32)
[2017-01-01 20:57] LABS: GLUCOSE,POINT OF CARE 124 MG/DL (70-110)
[2017-01-02 04:33] VITALS: BP 142/94
[2017-01-02 07:36] VITALS: BP 143/80
[2017-01-02 07:51] LABS: GLUCOSE,POINT OF CARE 128 MG/DL (70-110)
[2017-01-02] MEDS: BuPROPion HCL XL 150 MG ER TABLET PO SCH (08:03)
[2017-01-02] MEDS: DOCUSATE SODIUM 100 MG CAPSULE PO SCH (08:03)
[2017-01-02] MEDS: DIAZEPAM 5 MG TABLET PO SCH (08:04)
[2017-01-02] MEDS: PANTOPRAZOLE SODIUM 40 MG DR TABLET PO SCH (08:04)
[2017-01-02] MEDS: HEPARIN SODIUM,PORCINE 5,000 UNITS/ML VIAL SQ SCH (08:07)
[2017-01-02] MEDS: SODIUM BICARBONATE 50 MEQ in DEXTROSE 5%-0.45% SODIUM CHL 1,000 ML IV SCH (09:03)
[2017-01-02 11:39] VITALS: BP 153/94
[2017-01-02 12:42] LABS: GLUCOSE,POINT OF CARE 96 MG/DL (70-110)
[2017-01-02] MEDS ORDERED: ALBU8HFA IH (13:12)
[2017-01-02] MEDS ORDERED: AZIT250T6 PO (13:12)
[2017-01-02] MEDS ORDERED: ALPR0.5T8 PO (13:41)
[2017-01-04 05:28] LABS: GLUCOSE COMMENT 1 Received Meds; GLUCOSE,POINT OF CARE 151 MG/DL (70-110)
== END 2017-01-02 14:20 | disposition home or self-care (01) | DRG 720 ==
LOC: EMS 10:10 → 5S 18:10 → 6N 01-01 18:30
PROVIDERS: ADMIT Internal Medicine; ATTEND Internal Medicine
DX: A41.9 Sepsis, unspecified organism (principal); G93.41 Metabolic encephalopathy; N17.9 Acute kidney failure, unspecified; M62.82 Rhabdomyolysis; J44.1 Chronic obstructive pulmonary disease with (acute) exacerbation; R56.9 Unspecified convulsions; D69.6 Thrombocytopenia, unspecified; K73.9 Chronic hepatitis, unspecified; E87.5 Hyperkalemia; E03.9 Hypothyroidism, unspecified; F20.9 Schizophrenia, unspecified; R09.02 Hypoxemia; F31.9 Bipolar disorder, unspecified; F17.210 Nicotine dependence, cigarettes, uncomplicated; Z91.19 Patient's noncompliance with other medical treatment and regimen; Z79.899 Other long term (current) drug therapy; Z87.01 Personal history of pneumonia (recurrent); Z59.0 Homelessness; Z98.890 Other specified postprocedural states
CPT/HCPCS: 82962; 93005; 94644; 94645; 96360; 96361; 96374; 99285; G0480; G0481; J0456; J1644; J2930; J3490; J7030

== ENCOUNTER 2017-01-04 06:06 | Inpatient (IN) | payer OTHER ==
[~2017-01-04] VITALS: Ht 177.8 cm; Wt 75.9 kg
[~2017-01-04 06:06] MED LIST changes: +ALPR0.5T8 PO; +AZIT250T6 PO; -CIPR-278 PO
[2017-01-04] MEDS ORDERED: DEXTROSE 50%-WATER 25 GM/50 ML SYRINGE IVP ONE ×3 (06:16→10:00)
[2017-01-04 06:22] LABS: GLUCOSE,POINT OF CARE 27 MG/DL (70-110)
[2017-01-04] MEDS ORDERED: SODIUM CHLORIDE 0.9% 500 ML IV ONE (06:30)
[2017-01-04 06:41] LABS: GLUCOSE COMMENT 1 Doctor Notified; GLUCOSE,POINT OF CARE 117 MG/DL (70-110)
[2017-01-04] MEDS ORDERED: LORazepam 2 MG/ML VIAL IVP ONE (06:45)
[2017-01-04 07:44] LABS: GLUCOSE,POINT OF CARE 122 MG/DL (70-110)
[2017-01-04 09:29] LABS: APPEARANCE,URINE CLEAR (CLEAR); GLUCOSE, URINE (UA) NEGATIVE (NEGATIVE); KETONES,URINE NEGATIVE (NEGATIVE); LEUKOCYTE ESTERASE ,URINE NEGATIVE (NEGATIVE); OCCULT BLOOD,URINE NEGATIVE (NEGATIVE); PROTEIN,URINE TRACE (NEGATIVE)
[2017-01-04 09:30] LABS: EOSINOPHILS % (AUTO) 0 % (1.0-6.0); HEMATOCRIT 38.8 % (41-53); HEMOGLOBIN 12.3 g/dL (13.5-17.5); LYMPHOCYTES # (AUTO) 0.3 K/uL (1.0-4.8); LYMPHOCYTES % (AUTO) 1.4 % (22.0-44.0); MEAN CORPUSCULAR HEMOGLOBIN 28.1 pg (26.0-34.0); MEAN CORPUSCULAR HGB CONC 31.8 G/dL (31.0-37.0); MEAN CORPUSCULAR VOLUME 88 fL (80-100); MONOCYTES # (AUTO) 1.8 K/uL (0.1-1.0); MONOCYTES % (AUTO) 7.8 % (2.0-9.0); NEUTROPHILS # (AUTO) 20.9 K/uL (1.8-7.7); PLATELET COUNT (AUTO) 181 K/uL (150-450); RED BLOOD CELL COUNT(AUTO) 4.38 MIL/uL (4.50-5.90); RED CELL DISTRIBUTION WIDTH 17.1 % (11.5-14.5)
[2017-01-04 09:32] LABS: ADD UA MICROSCOPIC NO
[2017-01-04 09:33] LABS: NEUTROPHILS % (AUTO) 90.8 % (40.0-70.0)
[2017-01-04 09:36] LABS: GLUCOSE,POINT OF CARE 102 MG/DL (70-110)
[2017-01-04 09:39] LABS: CALCIUM, TOTAL 8.6 mg/dL (8.8-10.5); CARBON DIOXIDE 29 mmol/L (22-29); CHLORIDE 103 mmol/L (98-107); CREATININE 2.12 mg/dL (0.60-1.30); GLOMERULAR FILTR. RATE CALC 32 mL/min (>60); INR 1.1 (0.9-1.1); PROTHROMBIN TIME 11.3 SEC (9.4-11.6); UREA NITROGEN, BLOOD 35 mg/dL (7-18)
[2017-01-04 09:42] LABS: SALICYLATE 1.5 mg/dL (2.8-20.0)
[2017-01-04 09:45] LABS: ACETAMINOPHEN < 2 mcg/mL (10-30)
[2017-01-04 09:46] LABS: TROPONIN I 0.06 ng/mL (0.00-0.05)
[2017-01-04 09:47] LABS: ANION GAP 7 mmol/L (8-16); SODIUM SERUM 139 mmol/L (136-145)
[2017-01-04 09:48] LABS: POTASSIUM 5.9 mmol/L (3.5-5.1)
[2017-01-04 09:49] LABS: B-TYPE NATRIURETIC PEPTIDE 137 pg/mL (0-100)
[2017-01-04] MEDS ORDERED: ALBUTEROL SULFATE 2.5 MG/0.5 ML NEB SOLUTION NEB ONE (10:00)
[2017-01-04] MEDS ORDERED: LEVOFLOXACIN 750 MG/D5% WATER 150 ML IV ONE (10:00)
[2017-01-04] MEDS ORDERED: FUROSEMIDE 40 MG/4 ML VIAL IVP ONE (10:00)
[2017-01-04] MEDS ORDERED: SODIUM CHLORIDE 0.9% 1,000 ML IV ONE (10:00)
[2017-01-04] MEDS ORDERED: INSULIN REGULAR, HUMAN 100 UNITS/ML IVP ONE (10:00)
[2017-01-04] MEDS ORDERED: SODIUM BICARBONATE [ADULT] 8.4% 50 MEQ/50 ML SYRINGE IVP ONE (10:00)
[2017-01-04] MEDS ORDERED: SODIUM POLYSTYRENE SULFONATE 15 GM/60 ML SUSPENSION BOTTLE PO ONE (10:00)
[2017-01-04] MEDS ORDERED: VANCOMYCIN HCL 1 GM/D5% WATER 200 ML IV ONE (10:00)
[2017-01-04] MEDS ORDERED: CALCIUM GLUCONATE 100 MG/ML 10 ML IVP ONE (10:00)
[2017-01-04 10:01] LABS: RBC MORPHOLOGY COMMENT ABNORMAL RBC MORPH
[2017-01-04 10:06] LABS: ALANINE AMINOTRANSFERASE 542 U/L (12-78); ALBUMIN 3.5 g/dL (3.4-5.0); ASPARTATE AMINOTRANSFERASE 468 U/L (15-37); BILIRUBIN,TOTAL 0.3 mg/dL (0.1-1.0); CREATINE KINASE MB < 0.5 ng/mL (0-5); CREATINE KINASE, TOTAL 438 U/L (39-308); THYROID STIMULATING HORMONE 9.09 uIU/mL (0.36-3.74)
[2017-01-04] MEDS: IPRATROPIUM BROMIDE 0.5 MG/2.5 ML NEB SOLUTION NEB SCH ×2 (10:45→15:25)
[2017-01-04] MEDS: ALBUTEROL SULFATE 2.5 MG/0.5 ML NEB SOLUTION NEB SCH ×2 (10:45→15:25)
[2017-01-04] MEDS ORDERED: ALBUTEROL SULFATE 2.5 MG/0.5 ML NEB SOLUTION NEB PRN (10:45)
[2017-01-04] MEDS ORDERED: ACETAMINOPHEN 325 MG TABLET PO PRN (10:45)
[2017-01-04] MEDS: ALPRAZolam 0.25 MG TABLET PO SCH ×2 (16:02→21:21)
[2017-01-04] MEDS: HEPARIN SODIUM,PORCINE 5,000 UNITS/ML VIAL SQ SCH (16:03)
[2017-01-04] MEDS: BuPROPion HCL XL 150 MG ER TABLET PO SCH (17:23)
[2017-01-04 18:03] VITALS: BP 107/80
[2017-01-04] MEDS ORDERED: QUEtiapine FUMARATE 200 MG TABLET PO SCH (21:00)
[2017-01-04 21:43] VITALS: BP 107/65
[2017-01-04 21:48] LABS: BASOPHILS % (AUTO) 0.2 % (0.0-2.0); EOSINOPHILS % (AUTO) 2.1 % (1.0-6.0); HEMATOCRIT 30.9 % (41-53); HEMOGLOBIN 9.8 g/dL (13.5-17.5); LYMPHOCYTES # (AUTO) 1.3 K/uL (1.0-4.8); LYMPHOCYTES % (AUTO) 10.7 % (22.0-44.0); MEAN CORPUSCULAR HEMOGLOBIN 27.5 pg (26.0-34.0); MEAN CORPUSCULAR HGB CONC 31.8 G/dL (31.0-37.0); MEAN CORPUSCULAR VOLUME 87 fL (80-100); MONOCYTES # (AUTO) 1.1 K/uL (0.1-1.0); MONOCYTES % (AUTO) 8.5 % (2.0-9.0); NEUTROPHILS # (AUTO) 9.8 K/uL (1.8-7.7); NEUTROPHILS % (AUTO) 78.5 % (40.0-70.0); PLATELET COUNT (AUTO) 149 K/uL (150-450); RED BLOOD CELL COUNT(AUTO) 3.57 MIL/uL (4.50-5.90); RED CELL DISTRIBUTION WIDTH 16.5 % (11.5-14.5); WHITE BLOOD COUNT (AUTO) 12.4 K/uL (4.5-11.0)
[2017-01-04 21:58] LABS: CALCIUM, TOTAL 8.1 mg/dL (8.8-10.5); CREATININE 1.57 mg/dL (0.60-1.30); POTASSIUM 4.4 mmol/L (3.5-5.1)
[2017-01-04 22:03] LABS: ALBUMIN 2.6 g/dL (3.4-5.0); BILIRUBIN,TOTAL 0.2 mg/dL (0.1-1.0); TOTAL PROTEIN, SERUM 5.5 g/dL (6.4-8.2)
[2017-01-04 23:34] VITALS: BP 97/63
[2017-01-05] MEDS: IPRATROPIUM BROMIDE 0.5 MG/2.5 ML NEB SOLUTION NEB SCH ×2 (02:00→07:56)
[2017-01-05] MEDS: ALBUTEROL SULFATE 2.5 MG/0.5 ML NEB SOLUTION NEB SCH ×2 (02:00→07:56)
[2017-01-05 04:31] VITALS: BP 121/79
[2017-01-05] MEDS ORDERED: LEVOTHYROXINE SODIUM 100 MCG TABLET PO SCH (06:30)
[2017-01-05] MEDS: HEPARIN SODIUM,PORCINE 5,000 UNITS/ML VIAL SQ SCH ×2 (08:00)
[2017-01-05 08:07] VITALS: BP 138/80
[2017-01-05] MEDS: BuPROPion HCL XL 150 MG ER TABLET PO SCH (08:27)
[2017-01-05] MEDS: ALPRAZolam 0.25 MG TABLET PO SCH (08:27)
[2017-01-05] MEDS ORDERED: DOCUSATE SODIUM 100 MG CAPSULE PO SCH (09:00)
[2017-01-05] MEDS ORDERED: PANTOPRAZOLE SODIUM 40 MG DR TABLET PO SCH (09:00)
[2017-01-05] MEDS ORDERED: LEVOFLOXACIN 250 MG/D5% WATER 50 ML IV SCH (12:00)
[2017-01-05 12:02] VITALS: BP 123/88
[2017-01-05] MEDS ORDERED: SODIUM CHLORIDE 0.9% 250 ML IV ONE (12:38)
== END 2017-01-05 14:00 | disposition home or self-care (01) | DRG 720 ==
LOC: EMS 06:08 → AHU 11:16 → 5S 23:18
PROVIDERS: ADMIT Hospitalist; ATTEND Hospitalist
DX: A41.9 Sepsis, unspecified organism (principal); E43 Unspecified severe protein-calorie malnutrition; G93.41 Metabolic encephalopathy; N17.9 Acute kidney failure, unspecified; R56.9 Unspecified convulsions; K73.9 Chronic hepatitis, unspecified; F20.9 Schizophrenia, unspecified; R74.0 Nonspecific elevation of levels of transaminase and lactic acid dehydrogenase [LDH]; J44.9 Chronic obstructive pulmonary disease, unspecified; F10.20 Alcohol dependence, uncomplicated; F31.9 Bipolar disorder, unspecified; T42.4X5A Adverse effect of benzodiazepines, initial encounter; F17.210 Nicotine dependence, cigarettes, uncomplicated; D64.9 Anemia, unspecified; E87.5 Hyperkalemia; E03.9 Hypothyroidism, unspecified; F41.9 Anxiety disorder, unspecified; E16.2 Hypoglycemia, unspecified; Z91.19 Patient's noncompliance with other medical treatment and regimen; Z79.899 Other long term (current) drug therapy; Z59.0 Homelessness; Z86.14 Personal history of Methicillin resistant Staphylococcus aureus infection; Z68.24 Body mass index [BMI] 24.0-24.9, adult; Z87.01 Personal history of pneumonia (recurrent); X58.XXXA Exposure to other specified factors, initial encounter; Y93.89 Activity, other specified; Y92.89 Other specified places as the place of occurrence of the external cause; Y99.8 Other external cause status
CPT/HCPCS: 51702; 70450; 82962; 84443; 87040; 87081; 93005; 95816; 96361; 96365; 96367; 96374; 96375; 99291; G0480; G0481; J0610; J1644; J1815; J1940; J1956; J2060; J3370; J3490; J7040; J7050

== ENCOUNTER 2017-01-26 21:12 | Inpatient (IN) | payer MEDICAID, OTHER ==
[~2017-01-26] VITALS: Ht 188 cm; Wt 68.7 kg
[~2017-01-26 21:12] MED LIST changes: -ALPR0.5T8 PO; -AZIT250T6 PO
[2017-01-26] MEDS ORDERED: HALOPERIDOL 5 MG TABLET PO PRN (21:45)
[2017-01-26] MEDS ORDERED: LORazepam 2 MG TABLET PO PRN (21:45)
[2017-01-26] MEDS ORDERED: ZOLPIDEM TARTRATE 10 MG TABLET PO PRN (21:45)
[2017-01-26 23:33] LABS: BASOPHILS # (AUTO) 0.05 K/uL (0.00-0.20); BASOPHILS % (AUTO) 0.6 % (0.0-2.0); EOSINOPHILS # (AUTO) 0.44 K/uL (0.00-0.70); EOSINOPHILS % (AUTO) 5.86 % (1.0-6.0); HEMATOCRIT 39.2 % (41-53); HEMOGLOBIN 12.8 g/dL (13.5-17.5); LYMPHOCYTES % (AUTO) 27.1 % (22.0-44.0); MEAN CORPUSCULAR HEMOGLOBIN 28.1 pg (26.0-34.0); MEAN CORPUSCULAR HGB CONC 32.7 G/dL (31.0-37.0); MEAN CORPUSCULAR VOLUME 86 fL (80-100); MONOCYTES # (AUTO) 1.2 K/uL (0.1-1.0); MONOCYTES % (AUTO) 16.3 % (2.0-9.0); NEUTROPHILS # (AUTO) 3.7 K/uL (1.8-7.7); NEUTROPHILS % (AUTO) 50.1 % (40.0-70.0); PLATELET COUNT (AUTO) 293 K/uL (150-450); RED BLOOD CELL COUNT(AUTO) 4.56 MIL/uL (4.50-5.90); RED CELL DISTRIBUTION WIDTH 15.4 % (11.5-14.5); WHITE BLOOD COUNT (AUTO) 7.4 K/uL (4.5-11.0)
[2017-01-26 23:42] LABS: ANION GAP 8 mmol/L (8-16); CARBON DIOXIDE 30 mmol/L (22-29); CHLORIDE 102 mmol/L (98-107); CREATININE 2.13 mg/dL (0.60-1.30); GLOMERULAR FILTR. RATE CALC 32 mL/min (>60); POTASSIUM 4.6 mmol/L (3.5-5.1); SODIUM SERUM 140 mmol/L (136-145); UREA NITROGEN, BLOOD 48 mg/dL (7-18)
[2017-01-26 23:49] LABS: ALANINE AMINOTRANSFERASE 47 U/L (12-78); ASPARTATE AMINOTRANSFERASE 36 U/L (15-37); BILIRUBIN,TOTAL 0.4 mg/dL (0.1-1.0); TOTAL PROTEIN, SERUM 7.7 g/dL (6.4-8.2)
[2017-01-27 02:42] LABS: APPEARANCE,URINE CLOUDY (CLEAR); GLUCOSE, URINE (UA) NEGATIVE (NEGATIVE); KETONES,URINE NEGATIVE (NEGATIVE); LEUKOCYTE ESTERASE ,URINE NEGATIVE (NEGATIVE); OCCULT BLOOD,URINE NEGATIVE (NEGATIVE); PROTEIN,URINE TRACE (NEGATIVE)
[2017-01-27 03:02] LABS: ADD UA MICROSCOPIC NO
[2017-01-27 04:21] VITALS: BP 107/66
[2017-01-27] MEDS ORDERED: LOPERAMIDE HCL 2 MG CAPSULE PO PRN (08:30)
[2017-01-27] MEDS ORDERED: BENZOCAINE/MENTHOL LOZENGE [8 LOZENGES/PACKET] MM PRN (08:30)
[2017-01-27] MEDS ORDERED: IBUPROFEN 600 MG TABLET PO PRN (08:30)
[2017-01-27] MEDS ORDERED: ACETAMINOPHEN 325 MG TABLET PO PRN (08:30)
[2017-01-27] MEDS ORDERED: PETROLATUM,WHITE 71 GM JELLY TP PRN (08:30)
[2017-01-27] MEDS ORDERED: ONDANSETRON HCL 4 MG TABLET PO PRN (08:30)
[2017-01-27] MEDS ORDERED: MAGNESIUM HYDROXIDE SUSPENSION 30 ML UDCUP PO PRN (08:30)
[2017-01-27] MEDS ORDERED: CloNIDine HCL 0.1 MG TABLET PO PRN (08:30)
[2017-01-27] MEDS ORDERED: ALBUTEROL SULFATE HFA 90 MCG/PUFF 8 GM INHALER IH PRN (08:30)
[2017-01-27] MEDS ORDERED: BACITRACIN 28.4 GM OINTMENT TP PRN (08:30)
[2017-01-27] MEDS ORDERED: MAG HYDROX/AL HYDROX/SIMETH ES 30 ML SUSPENSION UDCUP PO PRN (08:30)
[2017-01-27 08:59] LABS: BASOPHILS % (AUTO) 0.2 % (0.0-2.0); EOSINOPHILS % (AUTO) 3.1 % (1.0-6.0); HEMATOCRIT 39.5 % (41-53); HEMOGLOBIN 12.6 g/dL (13.5-17.5); LYMPHOCYTES % (AUTO) 8.1 % (22.0-44.0); MEAN CORPUSCULAR HEMOGLOBIN 27.8 pg (26.0-34.0); MEAN CORPUSCULAR HGB CONC 31.9 G/dL (31.0-37.0); MEAN CORPUSCULAR VOLUME 87 fL (80-100); MONOCYTES # (AUTO) 1.1 K/uL (0.1-1.0); NEUTROPHILS # (AUTO) 9.6 K/uL (1.8-7.7); NEUTROPHILS % (AUTO) 79.6 % (40.0-70.0); PLATELET COUNT (AUTO) 286 K/uL (150-450); RED BLOOD CELL COUNT(AUTO) 4.54 MIL/uL (4.50-5.90); RED CELL DISTRIBUTION WIDTH 15.5 % (11.5-14.5)
[2017-01-27] MEDS: OMEPRAZOLE 20 MG CAPSULE PO SCH (09:11)
[2017-01-27] MEDS: MULTIVITAMINS WITH MINERALS, THERAPEUTIC TABLET PO SCH (09:11)
[2017-01-27] MEDS: DOCUSATE SODIUM 100 MG CAPSULE PO SCH (09:12)
[2017-01-27 09:20] LABS: HEMOGLOBIN A1C 5.4 % (4.5-6.2)
[2017-01-27 09:21] LABS: ALBUMIN 3.4 g/dL (3.4-5.0); BILIRUBIN,TOTAL 0.5 mg/dL (0.1-1.0); CALCIUM, TOTAL 8.6 mg/dL (8.8-10.5); CHOL/HDL RATIO 2.1 (4.2-7.3); CREATININE 1.41 mg/dL (0.60-1.30); POTASSIUM 4.3 mmol/L (3.5-5.1); THYROID STIMULATING HORMONE 4.65 uIU/mL (0.36-3.74); TOTAL PROTEIN, SERUM 6.7 g/dL (6.4-8.2)
[2017-01-27] MEDS ORDERED: BuPROPion HCL XL 150 MG ER TABLET PO SCH (11:30)
[2017-01-27 14:13] VITALS: BP 114/68
[2017-01-27 16:00] VITALS: BP 116/64
[2017-01-27] MEDS: QUEtiapine FUMARATE 200 MG TABLET PO SCH (20:25)
[2017-01-28] MEDS: LEVOTHYROXINE SODIUM 100 MCG TABLET PO SCH (06:46)
[2017-01-28 08:28] LABS: ANION GAP 8 mmol/L (8-16); CALCIUM, TOTAL 8.6 mg/dL (8.8-10.5); CARBON DIOXIDE 28 mmol/L (22-29); CHLORIDE 101 mmol/L (98-107); CREATININE 1.14 mg/dL (0.60-1.30); GLOMERULAR FILTR. RATE CALC > 60 mL/min (>60); PHOSPHORUS 2.4 mg/dL (2.5-4.9); POTASSIUM 4.3 mmol/L (3.5-5.1); SODIUM SERUM 137 mmol/L (136-145); UREA NITROGEN, BLOOD 27 mg/dL (7-18)
[2017-01-28] MEDS: DOCUSATE SODIUM 100 MG CAPSULE PO SCH (10:20)
[2017-01-28] MEDS: MULTIVITAMINS WITH MINERALS, THERAPEUTIC TABLET PO SCH (10:20)
[2017-01-28] MEDS: OMEPRAZOLE 20 MG CAPSULE PO SCH (10:20)
[2017-01-28 11:03] VITALS: BP 122/78
[2017-01-28 16:00] VITALS: BP 103/64
[2017-01-28] MEDS: FERROUS SULFATE 325 MG EC TABLET PO SCH (17:18)
[2017-01-28] MEDS: QUEtiapine FUMARATE 200 MG TABLET PO SCH (21:44)
[2017-01-29] MEDS: LEVOTHYROXINE SODIUM 100 MCG TABLET PO SCH (06:43)
[2017-01-29] MEDS: FERROUS SULFATE 325 MG EC TABLET PO SCH (07:56)
[2017-01-29 08:49] VITALS: BP 99/67
[2017-01-29] MEDS: MULTIVITAMINS WITH MINERALS, THERAPEUTIC TABLET PO SCH (09:42)
[2017-01-29] MEDS: DOCUSATE SODIUM 100 MG CAPSULE PO SCH (09:42)
[2017-01-29] MEDS: OMEPRAZOLE 20 MG CAPSULE PO SCH (09:42)
[2017-01-29] MEDS ORDERED: FERR-89 PO (14:24)
[2017-01-29] MEDS ORDERED: MV-M1TAB2 PO (14:25)
== END 2017-01-29 16:00 | disposition home or self-care (01) | DRG 750 ==
LOC: BV PSY EVL 22:44 → 3EI 01-27 01:00
PROVIDERS: ADMIT Psychiatry & Neurology Psychiatry; ATTEND Psychiatry & Neurology Psychiatry
DX: F25.9 Schizoaffective disorder, unspecified (principal); N17.0 Acute kidney failure with tubular necrosis; I13.0 Hypertensive heart and chronic kidney disease with heart failure and stage 1 through stage 4 chronic kidney disease, or unspecified chronic kidney disease; I50.9 Heart failure, unspecified; R45.851 Suicidal ideations; K59.00 Constipation, unspecified; B18.2 Chronic viral hepatitis C; E03.9 Hypothyroidism, unspecified; J44.9 Chronic obstructive pulmonary disease, unspecified; K21.9 Gastro-esophageal reflux disease without esophagitis; N18.9 Chronic kidney disease, unspecified; G47.00 Insomnia, unspecified; E55.9 Vitamin D deficiency, unspecified; F12.10 Cannabis abuse, uncomplicated; F10.20 Alcohol dependence, uncomplicated; F11.10 Opioid abuse, uncomplicated; F32.9 Major depressive disorder, single episode, unspecified; F15.10 Other stimulant abuse, uncomplicated; F17.200 Nicotine dependence, unspecified, uncomplicated; Z71.6 Tobacco abuse counseling; Z86.711 Personal history of pulmonary embolism; Z91.19 Patient's noncompliance with other medical treatment and regimen; Z81.8 Family history of other mental and behavioral disorders; Z59.0 Homelessness
CPT/HCPCS: 76770; 83036; 83735; 84100; 84439; 84443; 87081; 99285; G0480

== ENCOUNTER 2017-03-04 16:09 | Emergency (ER) | payer MEDICAID, OTHER ==
[~2017-03-04] VITALS: Ht 182.9 cm; Wt 79.5 kg
[~2017-03-04 16:09] MED LIST changes: -ALBU8HFA IH; -BUPR-93 PO; +FERR-89 PO; +MV-M1TAB2 PO
[2017-03-04] MEDS ORDERED: DIAZ10 PO (16:23)
[2017-03-04] MEDS ORDERED: BUPR75 PO (16:23)
[2017-03-04] MEDS ORDERED: ALBUTEROL SULFATE 5 MG/ML 20 ML NEB SOLN [BULK] NEB ONE (16:45)
[2017-03-04] MEDS ORDERED: IPRATROPIUM BROMIDE 0.5 MG/2.5 ML NEB SOLUTION NEB ONE (16:45)
[2017-03-04] MEDS ORDERED: DEXAMETHASONE SOD PHOS 4 MG/ML 5 ML VIAL IM ONE (16:45)
[2017-03-04] MEDS ORDERED: BUPR-93 PO (16:46)
[2017-03-04 17:54] VITALS: BP 102/67
== END 2017-03-04 18:22 | disposition home or self-care (01) ==
LOC: EMS 16:11
DX: J44.9 Chronic obstructive pulmonary disease, unspecified (principal); F31.9 Bipolar disorder, unspecified; F20.0 Paranoid schizophrenia; F17.210 Nicotine dependence, cigarettes, uncomplicated; F11.90 Opioid use, unspecified, uncomplicated; Z71.6 Tobacco abuse counseling
CPT/HCPCS: 36415; 93005; 94644; 96372; 99285; 99406; G0480; J1100; 94640

== ENCOUNTER 2017-03-04 21:18 | Inpatient (IN) | payer MEDICAID, OTHER ==
[~2017-03-04] VITALS: Ht 188 cm; Wt 74.7 kg
[~2017-03-04 21:18] MED LIST changes: +BUPR-93 PO; +BUPR75 PO; +DIAZ10 PO
[2017-03-04 21:56] LABS: BASOPHILS # (AUTO) 0.02 K/uL (0.00-0.20); BASOPHILS % (AUTO) 0.2 % (0.0-2.0); EOSINOPHILS # (AUTO) 0.05 K/uL (0.00-0.70); EOSINOPHILS % (AUTO) 0.52 % (1.0-6.0); LYMPHOCYTES # (AUTO) 0.5 K/uL (1.0-4.8); LYMPHOCYTES % (AUTO) 5.1 % (22.0-44.0); MEAN CORPUSCULAR HEMOGLOBIN 27.4 pg (26.0-34.0); MEAN CORPUSCULAR HGB CONC 31.7 G/dL (31.0-37.0); MEAN CORPUSCULAR VOLUME 86 fL (80-100); MONOCYTES # (AUTO) 0.1 K/uL (0.1-1.0); PLATELET COUNT (AUTO) 232 K/uL (150-450); RED CELL DISTRIBUTION WIDTH 14.9 % (11.5-14.5); WHITE BLOOD COUNT (AUTO) 9.6 K/uL (4.5-11.0)
[2017-03-04 21:58] LABS: NEUTROPHILS % (AUTO) 93.2 % (40.0-70.0)
[2017-03-04 22:08] LABS: ANION GAP 10 mmol/L (8-16); CALCIUM, TOTAL 9.2 mg/dL (8.8-10.5); CARBON DIOXIDE 27 mmol/L (22-29); CHLORIDE 104 mmol/L (98-107); CREATININE 1.72 mg/dL (0.60-1.30); GLOMERULAR FILTR. RATE CALC 40 mL/min (>60); POTASSIUM 5.2 mmol/L (3.5-5.1); SODIUM SERUM 141 mmol/L (136-145); UREA NITROGEN, BLOOD 29 mg/dL (7-18)
[2017-03-04 22:15] LABS: ALANINE AMINOTRANSFERASE 20 U/L (12-78); ALBUMIN 3.9 g/dL (3.4-5.0); ASPARTATE AMINOTRANSFERASE 16 U/L (15-37); BILIRUBIN,TOTAL 0.3 mg/dL (0.1-1.0); TOTAL PROTEIN, SERUM 7.6 g/dL (6.4-8.2)
[2017-03-05] MEDS ORDERED: ZOLPIDEM TARTRATE 10 MG TABLET PO PRN (00:15)
[2017-03-05] MEDS ORDERED: HALOPERIDOL 5 MG TABLET PO PRN (00:15)
[2017-03-05] MEDS ORDERED: LORazepam 2 MG TABLET PO PRN (00:15)
[2017-03-05 01:27] VITALS: BP 127/84
[2017-03-05] MEDS ORDERED: ACETAMINOPHEN 325 MG TABLET PO PRN (08:00)
[2017-03-05] MEDS ORDERED: SODIUM POLYSTYRENE SULFONATE 15 GM/60 ML SUSPENSION BOTTLE PO ONE (08:00)
[2017-03-05] MEDS ORDERED: IBUPROFEN 600 MG TABLET PO PRN (08:00)
[2017-03-05] MEDS ORDERED: ONDANSETRON HCL 4 MG TABLET PO PRN (08:00)
[2017-03-05] MEDS ORDERED: ALBUTEROL SULFATE HFA 90 MCG/PUFF 8 GM INHALER IH PRN (08:00)
[2017-03-05] MEDS ORDERED: MAG HYDROX/AL HYDROX/SIMETH ES 30 ML SUSPENSION UDCUP PO PRN (08:00)
[2017-03-05] MEDS ORDERED: MAGNESIUM HYDROXIDE SUSPENSION 30 ML UDCUP PO PRN (08:00)
[2017-03-05] MEDS ORDERED: LOPERAMIDE HCL 2 MG CAPSULE PO PRN (08:00)
[2017-03-05] MEDS ORDERED: BACITRACIN 28.4 GM OINTMENT TP PRN (08:00)
[2017-03-05] MEDS ORDERED: BENZOCAINE/MENTHOL LOZENGE MM PRN (08:00)
[2017-03-05] MEDS ORDERED: CloNIDine HCL 0.1 MG TABLET PO PRN (08:00)
[2017-03-05] MEDS ORDERED: PETROLATUM,WHITE 71 GM JELLY TP PRN (08:00)
[2017-03-05 08:02] VITALS: BP 148/78
[2017-03-05] MEDS ORDERED: BENZOCAINE/MENTHOL LOZENGE [8 LOZENGES/PACKET] MM PRN (08:15)
[2017-03-05] MEDS: OMEPRAZOLE 20 MG CAPSULE PO SCH (08:24)
[2017-03-05] MEDS: MULTIVITAMINS WITH MINERALS, THERAPEUTIC TABLET PO SCH (08:24)
[2017-03-05] MEDS: DOCUSATE SODIUM 100 MG CAPSULE PO SCH (08:24)
[2017-03-05] MEDS: CHOLECALCIFEROL (VIT D3) 1,000 UNITS TABLET PO SCH (08:25)
[2017-03-05] MEDS: LEVOTHYROXINE SODIUM 100 MCG TABLET PO SCH (08:26)
[2017-03-05 16:24] VITALS: BP 131/84
[2017-03-05] MEDS ORDERED: QUEtiapine FUMARATE 200 MG TABLET PO SCH (21:00)
[2017-03-06] MEDS: LEVOTHYROXINE SODIUM 100 MCG TABLET PO SCH (06:21)
[2017-03-06 08:01] VITALS: BP 133/7
[2017-03-06] MEDS: CHOLECALCIFEROL (VIT D3) 1,000 UNITS TABLET PO SCH (08:25)
[2017-03-06] MEDS: DOCUSATE SODIUM 100 MG CAPSULE PO SCH (08:25)
[2017-03-06] MEDS: OMEPRAZOLE 20 MG CAPSULE PO SCH (08:25)
[2017-03-06] MEDS: MULTIVITAMINS WITH MINERALS, THERAPEUTIC TABLET PO SCH (08:25)
[2017-03-06] MEDS ORDERED: BuPROPion HCL XL 150 MG ER TABLET PO SCH (09:00)
[2017-03-06] MEDS ORDERED: OMEP20 PO (17:46)
[2017-03-06] MEDS ORDERED: DSS100 PO (17:46)
[2017-03-06] MEDS ORDERED: MULT-248 PO (17:47)
[2017-03-06] MEDS ORDERED: VITAD1000 PO (17:47)
== END 2017-03-06 18:45 | disposition home or self-care (01) | DRG 750 ==
LOC: EMS 21:20 → 3EI 03-05 00:15
PROVIDERS: ADMIT Psychiatry & Neurology Psychiatry; ATTEND Psychiatry & Neurology Psychiatry
DX: F25.9 Schizoaffective disorder, unspecified (principal); N17.9 Acute kidney failure, unspecified; E44.0 Moderate protein-calorie malnutrition; I13.0 Hypertensive heart and chronic kidney disease with heart failure and stage 1 through stage 4 chronic kidney disease, or unspecified chronic kidney disease; R45.851 Suicidal ideations; I50.9 Heart failure, unspecified; N18.3 Chronic kidney disease, stage 3 (moderate); E55.9 Vitamin D deficiency, unspecified; E87.5 Hyperkalemia; J44.9 Chronic obstructive pulmonary disease, unspecified; F32.9 Major depressive disorder, single episode, unspecified; E03.9 Hypothyroidism, unspecified; F17.210 Nicotine dependence, cigarettes, uncomplicated; F19.10 Other psychoactive substance abuse, uncomplicated; N28.1 Cyst of kidney, acquired; K08.89 Other specified disorders of teeth and supporting structures; K21.9 Gastro-esophageal reflux disease without esophagitis; B18.2 Chronic viral hepatitis C; F22 Delusional disorders; F11.10 Opioid abuse, uncomplicated; F10.20 Alcohol dependence, uncomplicated; Z59.0 Homelessness; Z79.899 Other long term (current) drug therapy; Z56.0 Unemployment, unspecified; Z71.6 Tobacco abuse counseling; Z22.322 Carrier or suspected carrier of Methicillin resistant Staphylococcus aureus; Z86.711 Personal history of pulmonary embolism; Z68.21 Body mass index [BMI] 21.0-21.9, adult
CPT/HCPCS: 84132; 87081; 99285; G0480

== ENCOUNTER 2017-03-11 18:35 | Inpatient (IN) | payer MEDICAID, OTHER ==
[~2017-03-11] VITALS: Ht 188 cm; Wt 76.5 kg
[~2017-03-11 18:35] MED LIST changes: -BUPR75 PO; -DIAZ10 PO; -FERR-89 PO; +MULT-248 PO; -MV-M1TAB2 PO; +VITAD1000 PO
[2017-03-11 19:35] LABS: BASOPHILS % (AUTO) 0.1 % (0.0-2.0); EOSINOPHILS % (AUTO) 3.3 % (1.0-6.0); HEMATOCRIT 39.3 % (41-53); HEMOGLOBIN 12.5 g/dL (13.5-17.5); LYMPHOCYTES % (AUTO) 17.2 % (22.0-44.0); MEAN CORPUSCULAR HEMOGLOBIN 26.9 pg (26.0-34.0); MEAN CORPUSCULAR HGB CONC 31.7 G/dL (31.0-37.0); MEAN CORPUSCULAR VOLUME 85 fL (80-100); MONOCYTES % (AUTO) 17.1 % (2.0-9.0); NEUTROPHILS # (AUTO) 3.8 K/uL (1.8-7.7); NEUTROPHILS % (AUTO) 62.3 % (40.0-70.0); PLATELET COUNT (AUTO) 252 K/uL (150-450); RED BLOOD CELL COUNT(AUTO) 4.62 MIL/uL (4.50-5.90); RED CELL DISTRIBUTION WIDTH 15.2 % (11.5-14.5); WHITE BLOOD COUNT (AUTO) 6.1 K/uL (4.5-11.0)
[2017-03-11 19:49] LABS: CALCIUM, TOTAL 8.9 mg/dL (8.8-10.5); CREATININE 1.56 mg/dL (0.60-1.30); POTASSIUM 3.9 mmol/L (3.5-5.1)
[2017-03-11 19:57] LABS: ALBUMIN 3.1 g/dL (3.4-5.0); BILIRUBIN,TOTAL 0.3 mg/dL (0.1-1.0)
[2017-03-11 21:24] LABS: APPEARANCE,URINE CLEAR (CLEAR); GLUCOSE, URINE (UA) NEGATIVE (NEGATIVE); KETONES,URINE NEGATIVE (NEGATIVE); LEUKOCYTE ESTERASE ,URINE NEGATIVE (NEGATIVE); OCCULT BLOOD,URINE NEGATIVE (NEGATIVE); PROTEIN,URINE TRACE (NEGATIVE)
[2017-03-11 21:26] LABS: ADD UA MICROSCOPIC NO
[2017-03-12] MEDS ORDERED: HYDROmorphone 2 MG/ML SYRINGE IVP ONE ×2 (00:15→02:45)
[2017-03-12] MEDS ORDERED: SODIUM CHLORIDE 0.9% 2,000 ML IV ONE (00:15)
[2017-03-12] MEDS ORDERED: ONDANSETRON HCL 4 MG/2 ML VIAL IVP ONE (00:15)
[2017-03-12] MEDS ORDERED: BARIUM SULFATE 0.1% SUSPENSION 450 ML BOTTLE PO ONE ×2 (00:15)
[2017-03-12] MEDS ORDERED: ONDANSETRON HCL 4 MG/2 ML VIAL IVP PRN ×2 (02:45→18:15)
[2017-03-12] MEDS ORDERED: POTASSIUM CHL 20 MEQ/D5-0.45NS 1,000 ML IV ONE (02:45)
[2017-03-12] MEDS ORDERED: 0.9% SODIUM CHLORIDE 10 ML SYRINGE IVP PRN (02:45)
[2017-03-12] MEDS ORDERED: SODIUM CHLORIDE 0.9% 1,000 ML IV ONE (02:45)
[2017-03-12] MEDS: HYDROmorphone 2 MG/ML SYRINGE IVP PRN ×2 (07:14→11:23)
[2017-03-12 14:30] VITALS: BP 126/82
[2017-03-12] MEDS: MORPHINE SULFATE 2 MG/ML SYRINGE IVP PRN ×3 (15:21→22:47)
[2017-03-12] MEDS: SODIUM CHLORIDE 0.9% 1,000 ML IV SCH (15:26)
[2017-03-12] MEDS ORDERED: SODIUM CHLORIDE 0.9% 1,000 ML IV SCH ×2 (15:45→18:30)
[2017-03-12 16:31] VITALS: BP 135/72
[2017-03-12] MEDS: PANTOPRAZOLE SODIUM 40 MG/VIAL IVP SCH (18:42)
[2017-03-12 19:44] VITALS: BP 135/85
[2017-03-12] MEDS ORDERED: OMEPRAZOLE 20 MG CAPSULE PO SCH (20:15)
[2017-03-12] MEDS: DOCUSATE SODIUM 100 MG CAPSULE PO SCH (20:36)
[2017-03-12] MEDS: CHOLECALCIFEROL (VIT D3) 1,000 UNITS TABLET PO SCH (20:36)
[2017-03-12] MEDS ORDERED: QUEtiapine FUMARATE 200 MG TABLET PO SCH (21:00)
[2017-03-12] MEDS: BuPROPion HCL XL 150 MG ER TABLET PO SCH (21:40)
[2017-03-12 22:57] VITALS: BP 106/70
[2017-03-13 06:25] LABS: BASOPHILS % (AUTO) 0.2 % (0.0-2.0); EOSINOPHILS % (AUTO) 6.6 % (1.0-6.0); HEMATOCRIT 33.3 % (41-53); HEMOGLOBIN 10.5 g/dL (13.5-17.5); LYMPHOCYTES # (AUTO) 1.4 K/uL (1.0-4.8); LYMPHOCYTES % (AUTO) 26.3 % (22.0-44.0); MEAN CORPUSCULAR HEMOGLOBIN 26.8 pg (26.0-34.0); MEAN CORPUSCULAR HGB CONC 31.4 G/dL (31.0-37.0); MEAN CORPUSCULAR VOLUME 85 fL (80-100); MONOCYTES # (AUTO) 0.8 K/uL (0.1-1.0); MONOCYTES % (AUTO) 15.7 % (2.0-9.0); NEUTROPHILS # (AUTO) 2.8 K/uL (1.8-7.7); NEUTROPHILS % (AUTO) 51.2 % (40.0-70.0); PLATELET COUNT (AUTO) 205 K/uL (150-450); RED CELL DISTRIBUTION WIDTH 14.9 % (11.5-14.5); WHITE BLOOD COUNT (AUTO) 5.4 K/uL (4.5-11.0)
[2017-03-13 06:26] VITALS: BP 133/69
[2017-03-13] MEDS: SODIUM CHLORIDE 0.9% 1,000 ML IV SCH ×2 (06:29→09:05)
[2017-03-13] MEDS ORDERED: LEVOTHYROXINE SODIUM 100 MCG TABLET PO SCH (06:30)
[2017-03-13 06:59] LABS: ANION GAP 9 mmol/L (8-16); CALCIUM, TOTAL 7.9 mg/dL (8.8-10.5); CARBON DIOXIDE 24 mmol/L (22-29); CHLORIDE 107 mmol/L (98-107); CREATININE 1.01 mg/dL (0.60-1.30); GLOMERULAR FILTR. RATE CALC > 60 mL/min (>60); POTASSIUM 4.1 mmol/L (3.5-5.1); SODIUM SERUM 140 mmol/L (136-145); UREA NITROGEN, BLOOD 15 mg/dL (7-18)
[2017-03-13 08:00] VITALS: BP 134/79
[2017-03-13] MEDS: BuPROPion HCL XL 150 MG ER TABLET PO SCH (09:05)
[2017-03-13] MEDS: PANTOPRAZOLE SODIUM 40 MG/VIAL IVP SCH (09:05)
[2017-03-13] MEDS: DOCUSATE SODIUM 100 MG CAPSULE PO SCH (09:05)
[2017-03-13] MEDS: CHOLECALCIFEROL (VIT D3) 1,000 UNITS TABLET PO SCH (09:06)
[2017-03-13] MEDS: MORPHINE SULFATE 2 MG/ML SYRINGE IVP PRN ×3 (09:15→16:00)
[2017-03-13 12:00] VITALS: BP 136/66
[2017-03-13 16:00] VITALS: BP 143/100
== END 2017-03-13 18:20 | disposition home or self-care (01) | DRG 247 ==
LOC: EMS 18:38 → 4E 03-12 13:42
PROVIDERS: ADMIT Internal Medicine; ATTEND Internal Medicine
DX: K56.60 Unspecified intestinal obstruction (principal); E43 Unspecified severe protein-calorie malnutrition; N17.9 Acute kidney failure, unspecified; E86.0 Dehydration; J44.9 Chronic obstructive pulmonary disease, unspecified; F31.9 Bipolar disorder, unspecified; F17.210 Nicotine dependence, cigarettes, uncomplicated; D64.9 Anemia, unspecified; F25.9 Schizoaffective disorder, unspecified; Z86.19 Personal history of other infectious and parasitic diseases; Z68.21 Body mass index [BMI] 21.0-21.9, adult; Z86.14 Personal history of Methicillin resistant Staphylococcus aureus infection; Z79.899 Other long term (current) drug therapy; Z59.0 Homelessness
CPT/HCPCS: 74176; 87081; 93005; 96361; 96374; 96375; 96376; 99285; C9113; J1170; J2270; J2405; J3480; J7030

== ENCOUNTER 2017-03-16 09:01 | Inpatient (IN) | payer OTHER ==
[~2017-03-16] VITALS: Ht 188 cm; Wt 77.0 kg
[2017-03-16] MEDS ORDERED: ONDANSETRON HCL 4 MG/2 ML VIAL IVP ONE (09:45)
[2017-03-16] MEDS ORDERED: MORPHINE SULFATE 4 MG/ML SYRINGE IVP ONE (09:45)
[2017-03-16] MEDS ORDERED: BARIUM SULFATE 0.1% SUSPENSION 450 ML BOTTLE PO ONE (09:45)
[2017-03-16] MEDS ORDERED: SODIUM CHLORIDE 0.9% 1,000 ML IV ONE ×2 (09:45→12:15)
[2017-03-16 10:01] LABS: EOSINOPHILS % (AUTO) 0.71 % (1.0-6.0); HEMATOCRIT 37.1 % (41-53); HEMOGLOBIN 11.9 g/dL (13.5-17.5); LYMPHOCYTES # (AUTO) 0.4 K/uL (1.0-4.8); LYMPHOCYTES % (AUTO) 2.9 % (22.0-44.0); MEAN CORPUSCULAR HEMOGLOBIN 27.3 pg (26.0-34.0); MEAN CORPUSCULAR VOLUME 85 fL (80-100); MONOCYTES # (AUTO) 1.1 K/uL (0.1-1.0); NEUTROPHILS # (AUTO) 12.5 K/uL (1.8-7.7); PLATELET COUNT (AUTO) 290 K/uL (150-450); RED BLOOD CELL COUNT(AUTO) 4.36 MIL/uL (4.50-5.90); RED CELL DISTRIBUTION WIDTH 14.9 % (11.5-14.5); WHITE BLOOD COUNT (AUTO) 14.1 K/uL (4.5-11.0)
[2017-03-16 10:02] LABS: NEUTROPHILS % (AUTO) 88.4 % (40.0-70.0)
[2017-03-16] MEDS ORDERED: IOVERSOL 350 MG/ML 100 ML VIAL ONE (10:11)
[2017-03-16] MEDS ORDERED: SODIUM CHLORIDE 0.9% 100 ML ONE (10:11)
[2017-03-16 10:13] LABS: CALCIUM, TOTAL 8.6 mg/dL (8.8-10.5); CREATININE 2.9 mg/dL (0.60-1.30); POTASSIUM 3.9 mmol/L (3.5-5.1)
[2017-03-16 10:18] LABS: ALBUMIN 3.4 g/dL (3.4-5.0); BILIRUBIN,TOTAL 0.3 mg/dL (0.1-1.0); TOTAL PROTEIN, SERUM 6.9 g/dL (6.4-8.2)
[2017-03-16 10:23] LABS: RBC MORPHOLOGY COMMENT NORMAL RBC MORPH
[2017-03-16] MEDS ORDERED: PIPERACILLIN/TAZO 3.375 GM/D5W 50 ML IV ONE (13:30)
[2017-03-16] MEDS ORDERED: MetroNIDAZOLE 500 MG/NACL 100 ML IV ONE (13:30)
[2017-03-16] MEDS ORDERED: MAGNESIUM SULFATE 4 GM/WATER 100 ML IV PRN (13:45)
[2017-03-16] MEDS ORDERED: MAGNESIUM OXIDE 400 MG TABLET PO PRN (13:45)
[2017-03-16] MEDS ORDERED: ACETAMINOPHEN 325 MG TABLET PO PRN (13:45)
[2017-03-16] MEDS ORDERED: POTASSIUM CHL 10 MEQ/WATER 50 ML IV PRN (13:45)
[2017-03-16] MEDS ORDERED: POTASSIUM CHLORIDE 20 MEQ ER TABLET PO PRN (13:45)
[2017-03-16] MEDS ORDERED: MAGNESIUM HYDROXIDE SUSPENSION 30 ML UDCUP PO PRN (13:45)
[2017-03-16] MEDS ORDERED: MAGNESIUM SULFATE 2 GM in DEXTROSE 5%-WATER 50 ML IV PRN (13:45)
[2017-03-16] MEDS: PANTOPRAZOLE SODIUM 40 MG/VIAL IVP SCH (14:41)
[2017-03-16] MEDS: HEPARIN SODIUM,PORCINE 5,000 UNITS/ML VIAL SQ SCH (14:41)
[2017-03-16] MEDS: SODIUM CHLORIDE 0.9% 1,000 ML IV SCH (14:42)
[2017-03-16] MEDS: MORPHINE SULFATE 2 MG/ML SYRINGE IVP PRN ×2 (14:42→19:00)
[2017-03-16 16:13] VITALS: BP 108/68
[2017-03-16] MEDS: ONDANSETRON HCL 4 MG/2 ML VIAL IVP PRN ×2 (16:15→16:28)
[2017-03-16] MEDS ORDERED: BENZOCAINE 20% 30 ML SOLUTION TP ONE (16:45)
[2017-03-16 19:30] VITALS: BP 109/67
[2017-03-16] MEDS: DOCUSATE SODIUM 100 MG CAPSULE PO SCH (21:00)
[2017-03-16] MEDS ORDERED: 0.9% SODIUM CHLORIDE 10 ML SYRINGE IVP PRN (22:30)
[2017-03-16] MEDS: PIPERACILLIN SODIUM/TAZOBACTAM 2.25 GM in DEXTROSE 5%-WATER 50 ML IV SCH (22:44)
[2017-03-16 23:37] VITALS: BP 93/46
[2017-03-17] VITALS (7 sets, daily range): BP systolic 92–110; BP diastolic 51–69
[2017-03-17] MEDS: PIPERACILLIN SODIUM/TAZOBACTAM 2.25 GM in DEXTROSE 5%-WATER 50 ML IV SCH (05:46)
[2017-03-17] MEDS: SODIUM CHLORIDE 0.9% 1,000 ML IV SCH (05:46)
[2017-03-17 06:40] LABS: EOSINOPHILS % (AUTO) 2.2 % (1.0-6.0); HEMATOCRIT 33.6 % (41-53); HEMOGLOBIN 10.5 g/dL (13.5-17.5); LYMPHOCYTES # (AUTO) 0.9 K/uL (1.0-4.8); LYMPHOCYTES % (AUTO) 6.9 % (22.0-44.0); MEAN CORPUSCULAR HEMOGLOBIN 26.6 pg (26.0-34.0); MEAN CORPUSCULAR HGB CONC 31.3 G/dL (31.0-37.0); MEAN CORPUSCULAR VOLUME 85 fL (80-100); MONOCYTES % (AUTO) 7.6 % (2.0-9.0); NEUTROPHILS # (AUTO) 10.9 K/uL (1.8-7.7); NEUTROPHILS % (AUTO) 83.3 % (40.0-70.0); PLATELET COUNT (AUTO) 218 K/uL (150-450); RED BLOOD CELL COUNT(AUTO) 3.96 MIL/uL (4.50-5.90); RED CELL DISTRIBUTION WIDTH 15.1 % (11.5-14.5); WHITE BLOOD COUNT (AUTO) 13.1 K/uL (4.5-11.0)
[2017-03-17 06:42] LABS: CALCIUM, TOTAL 7.3 mg/dL (8.8-10.5); CREATININE 1.45 mg/dL (0.60-1.30); MAGNESIUM 1.2 mg/dL (1.80-2.40)
[2017-03-17] MEDS: HEPARIN SODIUM,PORCINE 5,000 UNITS/ML VIAL SQ SCH ×4 (08:00→23:38)
[2017-03-17] MEDS: DOCUSATE SODIUM 100 MG CAPSULE PO SCH ×2 (08:04→21:20)
[2017-03-17] MEDS: ONDANSETRON HCL 4 MG/2 ML VIAL IVP PRN (08:19)
[2017-03-17] MEDS: PANTOPRAZOLE SODIUM 40 MG/VIAL IVP SCH (08:19)
[2017-03-17] MEDS ORDERED: MAGNESIUM SULFATE 2 GM in DEXTROSE 5%-WATER 50 ML IV PRN (09:30)
[2017-03-17] MEDS ORDERED: MAGNESIUM SULFATE 4 GM/WATER 100 ML IV PRN (09:30)
[2017-03-17] MEDS ORDERED: DEXTROSE 5%-0.45% SODIUM CHL 1,000 ML IV SCH (09:45)
[2017-03-17] MEDS ORDERED: 0.9% SODIUM CHLORIDE 10 ML SYRINGE IVP PRN (10:00)
[2017-03-17 10:10] LABS: ALBUMIN 2.5 g/dL (3.4-5.0)
[2017-03-17] MEDS: PIPERACILLIN/TAZO 3.375 GM/D5W 50 ML IV SCH ×3 (11:00→21:21)
[2017-03-17] MEDS ORDERED: QUEtiapine FUMARATE 200 MG TABLET PO SCH (21:00)
[2017-03-18] MEDS ORDERED: LEVOTHYROXINE SODIUM 100 MCG TABLET PO SCH (06:30)
[2017-03-18] MEDS: PIPERACILLIN/TAZO 3.375 GM/D5W 50 ML IV SCH (07:02)
[2017-03-18 07:32] VITALS: BP 100/41
[2017-03-18] MEDS: HEPARIN SODIUM,PORCINE 5,000 UNITS/ML VIAL SQ SCH ×2 (08:00→08:12)
[2017-03-18] MEDS: DOCUSATE SODIUM 100 MG CAPSULE PO SCH ×2 (08:12→08:17)
[2017-03-18] MEDS: PANTOPRAZOLE SODIUM 40 MG/VIAL IVP SCH (08:12)
[2017-03-18 09:05] LABS: BASOPHILS % (AUTO) 0.1 % (0.0-2.0); EOSINOPHILS % (AUTO) 2.4 % (1.0-6.0); HEMOGLOBIN 10.7 g/dL (13.5-17.5); LYMPHOCYTES % (AUTO) 8.3 % (22.0-44.0); MEAN CORPUSCULAR HEMOGLOBIN 26.6 pg (26.0-34.0); MEAN CORPUSCULAR HGB CONC 31.3 G/dL (31.0-37.0); MEAN CORPUSCULAR VOLUME 85 fL (80-100); MONOCYTES # (AUTO) 0.9 K/uL (0.1-1.0); MONOCYTES % (AUTO) 8.1 % (2.0-9.0); NEUTROPHILS # (AUTO) 9.4 K/uL (1.8-7.7); NEUTROPHILS % (AUTO) 81.1 % (40.0-70.0); PLATELET COUNT (AUTO) 251 K/uL (150-450); RED CELL DISTRIBUTION WIDTH 14.8 % (11.5-14.5); WHITE BLOOD COUNT (AUTO) 11.6 K/uL (4.5-11.0)
[2017-03-18 09:29] LABS: ALANINE AMINOTRANSFERASE 33 U/L (12-78); ALBUMIN 2.5 g/dL (3.4-5.0); ANION GAP 7 mmol/L (8-16); ASPARTATE AMINOTRANSFERASE 16 U/L (15-37); BILIRUBIN,TOTAL 0.3 mg/dL (0.1-1.0); CALCIUM, TOTAL 7.8 mg/dL (8.8-10.5); CARBON DIOXIDE 26 mmol/L (22-29); CHLORIDE 102 mmol/L (98-107); CREATININE 1.11 mg/dL (0.60-1.30); GLOMERULAR FILTR. RATE CALC > 60 mL/min (>60); SODIUM SERUM 135 mmol/L (136-145); TOTAL PROTEIN, SERUM 5.9 g/dL (6.4-8.2); UREA NITROGEN, BLOOD 11 mg/dL (7-18)
[2017-03-18 11:57] VITALS: BP 120/75
== END 2017-03-18 14:10 | disposition home or self-care (01) | DRG 247 ==
LOC: EMS 09:04 → 6N 15:16
PROVIDERS: ADMIT Internal Medicine; ATTEND Internal Medicine
DX: K56.60 Unspecified intestinal obstruction (principal); N17.9 Acute kidney failure, unspecified; E86.0 Dehydration; E03.9 Hypothyroidism, unspecified; F99 Mental disorder, not otherwise specified; D72.829 Elevated white blood cell count, unspecified; F19.10 Other psychoactive substance abuse, uncomplicated; F20.9 Schizophrenia, unspecified; J44.9 Chronic obstructive pulmonary disease, unspecified; F31.9 Bipolar disorder, unspecified; Z86.14 Personal history of Methicillin resistant Staphylococcus aureus infection; Z59.0 Homelessness; Z79.899 Other long term (current) drug therapy; Z76.5 Malingerer [conscious simulation]; Z91.11 Patient's noncompliance with dietary regimen; Z91.19 Patient's noncompliance with other medical treatment and regimen; Z87.891 Personal history of nicotine dependence
CPT/HCPCS: 74000; 74177; 83735; 87081; 93005; 96361; 96365; 96368; 96375; 99285; C9113; J1644; J2270; J2405; J2543; J3475; J3490; J7030; J7050; J7060

== ENCOUNTER 2017-04-22 20:49 | Inpatient (IN) | payer OTHER ==
[~2017-04-22] VITALS: Ht 188 cm; Wt 69.5 kg
[2017-04-22] MEDS ORDERED: MethylPREDNISolone SOD SUCC 125 MG/2 ML VIAL IVP ONE (21:00)
[2017-04-22] MEDS ORDERED: IPRATROPIUM BROMIDE 0.5 MG/2.5 ML NEB SOLUTION NEB ONE ×2 (21:03→22:45)
[2017-04-22] MEDS ORDERED: 0.9% SODIUM CHLORIDE 15 ML NEB SOLUTION NEB ONE (21:03)
[2017-04-22] MEDS ORDERED: ALBUTEROL SULFATE 2.5 MG/0.5 ML NEB SOLUTION NEB ONE ×2 (21:14→22:45)
[2017-04-22 21:38] LABS: BASOPHILS # (AUTO) 0.05 K/uL (0.00-0.20); BASOPHILS % (AUTO) 0.3 % (0.0-2.0); EOSINOPHILS % (AUTO) 0.62 % (1.0-6.0); HEMATOCRIT 36.3 % (41-53); HEMOGLOBIN 11.6 g/dL (13.5-17.5); LYMPHOCYTES # (AUTO) 1.5 K/uL (1.0-4.8); LYMPHOCYTES % (AUTO) 8.8 % (22.0-44.0); MEAN CORPUSCULAR HEMOGLOBIN 28.1 pg (26.0-34.0); MEAN CORPUSCULAR VOLUME 88 fL (80-100); MONOCYTES % (AUTO) 6.1 % (2.0-9.0); NEUTROPHILS # (AUTO) 14.3 K/uL (1.8-7.7); NEUTROPHILS % (AUTO) 84.2 % (40.0-70.0); PLATELET COUNT (AUTO) 301 K/uL (150-450); RED BLOOD CELL COUNT(AUTO) 4.14 MIL/uL (4.50-5.90); RED CELL DISTRIBUTION WIDTH 18.4 % (11.5-14.5)
[2017-04-22 21:43] LABS: ANION GAP 13 mmol/L (8-16); CALCIUM, TOTAL 9.2 mg/dL (8.8-10.5); CARBON DIOXIDE 27 mmol/L (22-29); CHLORIDE 105 mmol/L (98-107); CREATININE 1.93 mg/dL (0.60-1.30); GLOMERULAR FILTR. RATE CALC 35 mL/min (>60); POTASSIUM 4.1 mmol/L (3.5-5.1); SODIUM SERUM 145 mmol/L (136-145); UREA NITROGEN, BLOOD 11 mg/dL (7-18)
[2017-04-22] MEDS ORDERED: SUCCINYLCHOLINE CHLORIDE 20 MG/ML 10 ML VIAL ONE (22:02)
[2017-04-22] MEDS ORDERED: RAPID SEQUENCE KIT [RSI] 1 EACH KIT ONE ×2 (22:02)
[2017-04-22 22:03] LABS: B-TYPE NATRIURETIC PEPTIDE 178 pg/mL (0-100)
[2017-04-22 22:09] LABS: ALANINE AMINOTRANSFERASE 21 U/L (12-78); ALBUMIN 3.9 g/dL (3.4-5.0); ASPARTATE AMINOTRANSFERASE 25 U/L (15-37); BILIRUBIN,TOTAL 0.3 mg/dL (0.1-1.0); CREATINE KINASE MB 4.7 ng/mL (0-5); CREATINE KINASE, TOTAL 396 U/L (39-308); TOTAL PROTEIN, SERUM 7.2 g/dL (6.4-8.2)
[2017-04-22 22:10] LABS: RBC MORPHOLOGY COMMENT ABNORMAL RBC MORPH
[2017-04-22 22:41] LABS: ABG BASE EXCESS 0.3 mmol/L (-2.0-3.0); ABG HCO3 23.6 mmol/L (22.0-26.0); ABG OXYHEMOGLOBIN 86.7 % (94.0-100.0); ABG PCO2 66 mmHg (35-45); ABG PH 7.242 (7.35-7.450)
[2017-04-22 22:42] LABS: ALLEN TEST, BLOOD GAS Positive
[2017-04-22] MEDS ORDERED: 0.9% SODIUM CHLORIDE 5 ML NEB SOLUTION NEB ONE (22:49)
[2017-04-22] MEDS ORDERED: LORazepam 2 MG/ML VIAL IM ONE (23:00)
[2017-04-22] MEDS ORDERED: IPRATROPIUM BROMIDE 0.5 MG/2.5 ML NEB SOLUTION NEB PRN (23:00)
[2017-04-22] MEDS ORDERED: POTASSIUM CHLORIDE 10 MEQ in SODIUM CHLORIDE 0.45% 1,000 ML IV ONE (23:00)
[2017-04-22] MEDS: IPRATROPIUM BROMIDE 0.5 MG/2.5 ML NEB SOLUTION NEB SCH (23:00)
[2017-04-22] MEDS ORDERED: ALBUTEROL SULFATE 2.5 MG/0.5 ML NEB SOLUTION NEB PRN (23:00)
[2017-04-22] MEDS: ALBUTEROL SULFATE 2.5 MG/0.5 ML NEB SOLUTION NEB SCH (23:00)
[2017-04-22] MEDS ORDERED: LEVOFLOXACIN 500 MG/D5% WATER 100 ML IV ONE (23:15)
[2017-04-22] MEDS ORDERED: LEVOFLOXACIN 500 MG/D5% WATER 100 ML IV SCH (23:15)
[2017-04-22] MEDS ORDERED: 0.9% SODIUM CHLORIDE 10 ML SYRINGE IVP PRN (23:15)
[2017-04-22] MEDS ORDERED: ONDANSETRON HCL 4 MG/2 ML VIAL IVP PRN (23:15)
[2017-04-22] MEDS ORDERED: ACETAMINOPHEN 325 MG TABLET PO PRN (23:15)
[2017-04-22] MEDS ORDERED: MORPHINE SULFATE 4 MG/ML SYRINGE IVP PRN (23:15)
[2017-04-23] VITALS (9 sets, daily range): BP systolic 98–152; BP diastolic 50–87
[2017-04-23] MEDS: MethylPREDNISolone SOD SUCC 125 MG/2 ML VIAL IVP SCH ×5 (00:50→23:11)
[2017-04-23] MEDS: HEPARIN SODIUM,PORCINE 5,000 UNITS/ML VIAL SQ SCH ×4 (00:51→23:11)
[2017-04-23] MEDS ORDERED: LEVOFLOXACIN 500 MG/D5% WATER 100 ML IV SCH (01:00)
[2017-04-23] MEDS ORDERED: SODIUM CHLORIDE 0.9% 250 ML IV ONE ×2 (01:05→12:09)
[2017-04-23] MEDS: PIPERACILLIN/TAZO 3.375 GM/D5W 50 ML IV SCH ×5 (01:08→23:12)
[2017-04-23] MEDS: DOXYCYCLINE 100 MG in DEXTROSE 5%-WATER 100 ML IV SCH ×2 (03:22→14:51)
[2017-04-23] MEDS: IPRATROPIUM BROMIDE 0.5 MG/2.5 ML NEB SOLUTION NEB SCH ×6 (04:17→22:22)
[2017-04-23] MEDS: ALBUTEROL SULFATE 2.5 MG/0.5 ML NEB SOLUTION NEB SCH ×6 (04:17→22:23)
[2017-04-23 05:49] LABS: ALBUMIN 3.2 g/dL (3.4-5.0); BILIRUBIN,TOTAL 0.4 mg/dL (0.1-1.0); CALCIUM, TOTAL 8.5 mg/dL (8.8-10.5); CREATININE 1.43 mg/dL (0.60-1.30); POTASSIUM 4.4 mmol/L (3.5-5.1); TOTAL PROTEIN, SERUM 6.4 g/dL (6.4-8.2)
[2017-04-23 08:00] LABS: ABG BASE EXCESS -4.4 mmol/L (-2.0-3.0); ABG HCO3 21.3 mmol/L (22.0-26.0); ABG OXYHEMOGLOBIN 95.1 % (94.0-100.0); ABG PCO2 35 mmHg (35-45); TEMPERATURE, FAHRENHEIT, BG 98.6 FAHREN (96.0-98.6)
[2017-04-23 08:02] LABS: ALLEN TEST, BLOOD GAS Positive
[2017-04-23] MEDS: PANTOPRAZOLE SODIUM 40 MG/VIAL IVP SCH (08:25)
[2017-04-23 11:59] LABS: ADD UA MICROSCOPIC YES; APPEARANCE,URINE CLOUDY (CLEAR); GLUCOSE, URINE (UA) NEGATIVE (NEGATIVE); KETONES,URINE TRACE mg/dL (NEGATIVE); LEUKOCYTE ESTERASE ,URINE NEGATIVE (NEGATIVE); OCCULT BLOOD,URINE NEGATIVE (NEGATIVE); PH,URINE 5.5 (5.0-8.0); PROTEIN,URINE TRACE (NEGATIVE)
[2017-04-23 12:02] LABS: WBC,URINE 0-2 /HPF (0-5)
[2017-04-23 12:03] LABS: AMORPHOUS SEDIMENT,UR Few /LPF (None Seen); FINE GRANULAR CASTS,URINE 0-2 /LPF (None Seen); SQUAMOUS EPITHELIAL CELL,UR Few /LPF (None Seen)
[2017-04-23] MEDS ORDERED: SODIUM CHLORIDE 0.9% 1,000 ML IV ONE (14:30)
[2017-04-23] MEDS ORDERED: ACETAMINOPHEN 325 MG TABLET PO PRN (20:45)
[2017-04-23] MEDS ORDERED: BuPROPion HCL XL 150 MG ER TABLET PO SCH (21:00)
[2017-04-23] MEDS: QUEtiapine FUMARATE 300 MG TABLET PO SCH (21:39)
[2017-04-24] MEDS: DOXYCYCLINE 100 MG in DEXTROSE 5%-WATER 100 ML IV SCH ×2 (01:45→13:06)
[2017-04-24] MEDS: DIAZEPAM 5 MG TABLET PO PRN ×3 (02:10→20:08)
[2017-04-24] MEDS: IPRATROPIUM BROMIDE 0.5 MG/2.5 ML NEB SOLUTION NEB SCH ×6 (03:05→23:05)
[2017-04-24] MEDS: ALBUTEROL SULFATE 2.5 MG/0.5 ML NEB SOLUTION NEB SCH ×6 (03:05→23:05)
[2017-04-24 04:53] VITALS: BP 106/70
[2017-04-24] MEDS: PIPERACILLIN/TAZO 3.375 GM/D5W 50 ML IV SCH ×3 (05:05→17:52)
[2017-04-24 08:00] VITALS: BP 120/63
[2017-04-24] MEDS: HEPARIN SODIUM,PORCINE 5,000 UNITS/ML VIAL SQ SCH ×2 (08:00→16:51)
[2017-04-24] MEDS: MethylPREDNISolone SOD SUCC 125 MG/2 ML VIAL IVP SCH ×2 (08:28→16:50)
[2017-04-24] MEDS: PANTOPRAZOLE SODIUM 40 MG/VIAL IVP SCH (08:28)
[2017-04-24] MEDS: BuPROPion HCL XL 150 MG ER TABLET PO SCH (09:08)
[2017-04-24 09:26] LABS: EOSINOPHILS % (AUTO) 0.2 % (1.0-6.0); HEMATOCRIT 33.4 % (41-53); LYMPHOCYTES # (AUTO) 0.5 K/uL (1.0-4.8); LYMPHOCYTES % (AUTO) 5.4 % (22.0-44.0); MEAN CORPUSCULAR HEMOGLOBIN 28.2 pg (26.0-34.0); MEAN CORPUSCULAR HGB CONC 32.9 G/dL (31.0-37.0); MEAN CORPUSCULAR VOLUME 86 fL (80-100); MONOCYTES # (AUTO) 0.5 K/uL (0.1-1.0); MONOCYTES % (AUTO) 5.7 % (2.0-9.0); NEUTROPHILS # (AUTO) 7.9 K/uL (1.8-7.7); NEUTROPHILS % (AUTO) 88.7 % (40.0-70.0); PLATELET COUNT (AUTO) 174 K/uL (150-450); RED CELL DISTRIBUTION WIDTH 18.6 % (11.5-14.5); WHITE BLOOD COUNT (AUTO) 8.9 K/uL (4.5-11.0)
[2017-04-24 11:34] VITALS: BP 136/86
[2017-04-24 15:35] VITALS: BP 133/75
[2017-04-24] MEDS: QUEtiapine FUMARATE 300 MG TABLET PO SCH (20:05)
[2017-04-24 20:28] VITALS: BP 138/90
[2017-04-25 00:11] VITALS: BP 133/80
[2017-04-25] MEDS: MethylPREDNISolone SOD SUCC 125 MG/2 ML VIAL IVP SCH (00:56)
[2017-04-25] MEDS: PIPERACILLIN/TAZO 3.375 GM/D5W 50 ML IV SCH ×2 (00:56→06:00)
[2017-04-25] MEDS: HEPARIN SODIUM,PORCINE 5,000 UNITS/ML VIAL SQ SCH ×2 (00:57→09:03)
[2017-04-25] MEDS: IPRATROPIUM BROMIDE 0.5 MG/2.5 ML NEB SOLUTION NEB SCH ×3 (03:00→11:00)
[2017-04-25] MEDS: ALBUTEROL SULFATE 2.5 MG/0.5 ML NEB SOLUTION NEB SCH ×3 (03:00→11:00)
[2017-04-25] MEDS: DOXYCYCLINE 100 MG in DEXTROSE 5%-WATER 100 ML IV SCH (03:26)
[2017-04-25 05:42] VITALS: BP 127/79
[2017-04-25 06:17] LABS: EOSINOPHILS % (AUTO) 0.1 % (1.0-6.0); HEMATOCRIT 31.5 % (41-53); HEMOGLOBIN 10.5 g/dL (13.5-17.5); LYMPHOCYTES # (AUTO) 0.3 K/uL (1.0-4.8); LYMPHOCYTES % (AUTO) 4.9 % (22.0-44.0); MEAN CORPUSCULAR HEMOGLOBIN 28.4 pg (26.0-34.0); MEAN CORPUSCULAR HGB CONC 33.2 G/dL (31.0-37.0); MEAN CORPUSCULAR VOLUME 85 fL (80-100); MONOCYTES # (AUTO) 0.3 K/uL (0.1-1.0); MONOCYTES % (AUTO) 4.4 % (2.0-9.0); PLATELET COUNT (AUTO) 169 K/uL (150-450); RED BLOOD CELL COUNT(AUTO) 3.68 MIL/uL (4.50-5.90); RED CELL DISTRIBUTION WIDTH 18.9 % (11.5-14.5); WHITE BLOOD COUNT (AUTO) 6.6 K/uL (4.5-11.0)
[2017-04-25 06:58] LABS: NEUTROPHILS % (AUTO) 90.6 % (40.0-70.0)
[2017-04-25 07:17] LABS: ANION GAP 9 mmol/L (8-16); CALCIUM, TOTAL 8.4 mg/dL (8.8-10.5); CARBON DIOXIDE 27 mmol/L (22-29); CHLORIDE 104 mmol/L (98-107); CREATININE 1.07 mg/dL (0.60-1.30); GLOMERULAR FILTR. RATE CALC > 60 mL/min (>60); POTASSIUM 4.2 mmol/L (3.5-5.1); SODIUM SERUM 140 mmol/L (136-145); UREA NITROGEN, BLOOD 25 mg/dL (7-18)
[2017-04-25 07:40] VITALS: BP 145/92
[2017-04-25 08:37] LABS: RBC MORPHOLOGY COMMENT ABNORMAL RBC MORPH
[2017-04-25] MEDS: DIAZEPAM 5 MG TABLET PO PRN (09:02)
[2017-04-25] MEDS: BuPROPion HCL XL 150 MG ER TABLET PO SCH (09:02)
[2017-04-25 11:30] VITALS: BP 145/81
[2017-04-25] MEDS ORDERED: ATOR40TA28 PO (13:09)
[2017-04-25] MEDS ORDERED: METO-323 PO (13:09)
[2017-04-25] MEDS ORDERED: DOXY100C PO (13:37)
[2017-04-25] MEDS ORDERED: ALBU8HFA IH (13:37)
[2017-04-25] MEDS ORDERED: ADV250 IH (13:39)
== END 2017-04-25 14:30 | disposition home or self-care (01) | DRG 140 ==
LOC: EMS 20:51 → ICU 22:45 → 5N 04-23 09:55
PROVIDERS: ADMIT Internal Medicine; ATTEND Internal Medicine
PROC: 5A09357 Assistance with Respiratory Ventilation, Less than 24 Consecutive Hours, Continuous Positive Airway Pressure (ICD-10-PCS; principal; 2017-04-22)
DX: J44.1 Chronic obstructive pulmonary disease with (acute) exacerbation (principal); J96.21 Acute and chronic respiratory failure with hypoxia; J18.9 Pneumonia, unspecified organism; N17.9 Acute kidney failure, unspecified; F19.10 Other psychoactive substance abuse, uncomplicated; D72.829 Elevated white blood cell count, unspecified; F11.10 Opioid abuse, uncomplicated; F10.21 Alcohol dependence, in remission; F17.210 Nicotine dependence, cigarettes, uncomplicated; F25.9 Schizoaffective disorder, unspecified; F31.9 Bipolar disorder, unspecified; Z91.19 Patient's noncompliance with other medical treatment and regimen; Z86.14 Personal history of Methicillin resistant Staphylococcus aureus infection; Z71.6 Tobacco abuse counseling; Z71.51 Drug abuse counseling and surveillance of drug abuser; Z59.0 Homelessness
CPT/HCPCS: 80307; 82805; 85379; 87040; 87081; 93005; 94640; 94660; 96374; 99285; C9113; J0330; J1644; J1956; J2270; J2543; J2930; J3480; J3490; J7030; J7050; J7060

== ENCOUNTER 2017-07-08 00:43 | Emergency (ER) | payer MEDICAID, OTHER ==
[~2017-07-08] VITALS: Ht 188 cm; Wt 70.5 kg
[~2017-07-08 00:43] MED LIST changes: +FLUT1BLS IH; +METO25XL PO; +SERT50TA12 PO
[2017-07-08] MEDS ORDERED: METH10 PO (01:07)
[2017-07-08] MEDS ORDERED: MIRALAX PO (01:07)
[2017-07-08] MEDS ORDERED: DIAZ10 PO (01:07)
[2017-07-08] MEDS ORDERED: BUPR100 PO (01:07)
[2017-07-08] MEDS ORDERED: MOME13HF2 IH (01:07)
[2017-07-08] MEDS ORDERED: ALBU8HFA IH (01:07)
[2017-07-08 01:16] LABS: EOSINOPHILS % (AUTO) 0 % (1.0-6.0); HEMATOCRIT 33.9 % (41-53); HEMOGLOBIN 11.2 g/dL (13.5-17.5); LYMPHOCYTES # (AUTO) 0.4 K/uL (1.0-4.8); LYMPHOCYTES % (AUTO) 2.3 % (22.0-44.0); MEAN CORPUSCULAR HEMOGLOBIN 28.6 pg (26.0-34.0); MEAN CORPUSCULAR HGB CONC 33.1 G/dL (31.0-37.0); MEAN CORPUSCULAR VOLUME 87 fL (80-100); MONOCYTES # (AUTO) 0.7 K/uL (0.1-1.0); MONOCYTES % (AUTO) 4.3 % (2.0-9.0); NEUTROPHILS # (AUTO) 14.6 K/uL (1.8-7.7); NEUTROPHILS % (AUTO) 93.4 % (40.0-70.0); PLATELET COUNT (AUTO) 221 K/uL (150-450); RED BLOOD CELL COUNT(AUTO) 3.92 MIL/uL (4.50-5.90); RED CELL DISTRIBUTION WIDTH 15.1 % (11.5-14.5); WHITE BLOOD COUNT (AUTO) 15.6 K/uL (4.5-11.0)
[2017-07-08 01:24] LABS: ANION GAP 9 mmol/L (8-16); CALCIUM, TOTAL 8.8 mg/dL (8.8-10.5); CARBON DIOXIDE 28 mmol/L (22-29); CHLORIDE 97 mmol/L (98-107); CREATININE 1.54 mg/dL (0.60-1.30); GLOMERULAR FILTR. RATE CALC 46 mL/min (>60); POTASSIUM 5.3 mmol/L (3.5-5.1); SODIUM SERUM 134 mmol/L (136-145); UREA NITROGEN, BLOOD 32 mg/dL (7-18)
[2017-07-08 01:30] LABS: ALANINE AMINOTRANSFERASE 15 U/L (12-78); ALBUMIN 3.1 g/dL (3.4-5.0); ASPARTATE AMINOTRANSFERASE 18 U/L (15-37); BILIRUBIN,TOTAL 0.3 mg/dL (0.1-1.0); TOTAL PROTEIN, SERUM 7.4 g/dL (6.4-8.2)
[2017-07-08 01:44] VITALS: BP 114/78
[2017-07-09] MEDS ORDERED: MOME13HF2 IH ×2 (09:18→09:50)
[2017-07-09] MEDS ORDERED: QUET100T PO (09:18)
[2017-07-09] MEDS ORDERED: METH10 PO (09:42)
[2017-07-09] MEDS ORDERED: DIAZ10 PO (09:50)
[2017-07-09] MEDS ORDERED: MIRALAX PO (09:50)
[2017-07-09] MEDS ORDERED: BUPR100 PO ×2 (09:50)
[2017-07-09] MEDS ORDERED: LEVO100T4 PO (09:50)
== END 2017-07-08 02:20 | disposition home or self-care (01) ==
LOC: EMS 00:44
DX: F31.9 Bipolar disorder, unspecified (principal); R45.851 Suicidal ideations; F17.210 Nicotine dependence, cigarettes, uncomplicated; F20.9 Schizophrenia, unspecified; I10 Essential (primary) hypertension; F11.10 Opioid abuse, uncomplicated; J44.9 Chronic obstructive pulmonary disease, unspecified; K75.9 Inflammatory liver disease, unspecified; F10.20 Alcohol dependence, uncomplicated; Z59.0 Homelessness
CPT/HCPCS: 36415; 80053; 85025; 99284; 99406; G0480

== ENCOUNTER 2017-07-08 21:40 | Inpatient (IN) | payer MEDICAID, OTHER ==
[~2017-07-08] VITALS: Ht 188 cm; Wt 67.7 kg
[~2017-07-08 21:40] MED LIST changes: +ALBU8HFA IH; -BUPR-93 PO; +BUPR100 PO; +DIAZ10 PO; -DSS100 PO; -FLUT1BLS IH; +METH10 PO; -METO25XL PO; +MIRALAX PO; +MOME13HF2 IH; -MULT-248 PO; -OMEP20 PO; -SERT50TA12 PO; -VITAD1000 PO
[2017-07-09] MEDS ORDERED: LORazepam 1 MG TABLET PO PRN (03:30)
[2017-07-09 03:50] VITALS: BP 132/62
[2017-07-09 08:12] VITALS: BP 97/52
[2017-07-09] MEDS ORDERED: ALBUTEROL SULFATE HFA 90 MCG/PUFF 8 GM INHALER IH PRN (09:00)
[2017-07-09] MEDS ORDERED: PETROLATUM,WHITE 71 GM JELLY TP PRN (09:00)
[2017-07-09] MEDS ORDERED: BENZOCAINE/MENTHOL LOZENGE MM PRN (09:00)
[2017-07-09] MEDS ORDERED: IBUPROFEN 600 MG TABLET PO PRN (09:00)
[2017-07-09] MEDS ORDERED: BACITRACIN 28.4 GM OINTMENT TP PRN (09:00)
[2017-07-09] MEDS ORDERED: ONDANSETRON HCL 4 MG TABLET PO PRN (09:00)
[2017-07-09] MEDS ORDERED: ACETAMINOPHEN 325 MG TABLET PO PRN (09:00)
[2017-07-09] MEDS ORDERED: GuaiFENesin/D-METHORPHAN/PHENYLEPH 5 ML LIQUID ORAL.SYG PO PRN (09:00)
[2017-07-09] MEDS ORDERED: MAG HYDROX/AL HYDROX/SIMETH ES 30 ML SUSPENSION UDCUP PO PRN (09:00)
[2017-07-09] MEDS ORDERED: MAGNESIUM HYDROXIDE SUSPENSION 30 ML UDCUP PO PRN (09:00)
[2017-07-09] MEDS ORDERED: CloNIDine HCL 0.1 MG TABLET PO PRN (09:00)
[2017-07-09] MEDS ORDERED: LOPERAMIDE HCL 2 MG CAPSULE PO PRN (09:00)
[2017-07-09] MEDS ORDERED: MOME13HF2 IH ×2 (09:18→09:50)
[2017-07-09] MEDS ORDERED: QUET100T PO (09:18)
[2017-07-09] MEDS: FLUTICASONE/VILANTEROL 200-25 MCG/INH INHALER [14] IH SCH (09:27)
[2017-07-09] MEDS: MULTIVITAMINS WITH MINERALS, THERAPEUTIC TABLET PO SCH (09:28)
[2017-07-09] MEDS: DOCUSATE SODIUM 100 MG CAPSULE PO SCH (09:28)
[2017-07-09] MEDS: OMEPRAZOLE 20 MG CAPSULE PO SCH (09:28)
[2017-07-09] MEDS: METHADONE HCL 10 MG TABLET PO SCH (09:28)
[2017-07-09] MEDS: CHOLECALCIFEROL (VIT D3) 1,000 UNITS TABLET PO SCH (09:28)
[2017-07-09] MEDS: AMOX TR/POT CLAV 500 MG/125 MG TABLET PO SCH ×2 (09:31→16:31)
[2017-07-09] MEDS ORDERED: METH10 PO (09:42)
[2017-07-09] MEDS ORDERED: LEVO100T4 PO (09:50)
[2017-07-09] MEDS ORDERED: MIRALAX PO (09:50)
[2017-07-09] MEDS ORDERED: BUPR100 PO ×2 (09:50)
[2017-07-09] MEDS ORDERED: DIAZ10 PO (09:50)
[2017-07-09] MEDS: BuPROPion HCL XL 150 MG ER TABLET PO SCH (13:58)
[2017-07-09] MEDS: DIAZEPAM 5 MG TABLET PO SCH (16:31)
[2017-07-09] MEDS: QUEtiapine FUMARATE 200 MG TABLET PO SCH (16:31)
[2017-07-09 16:48] VITALS: BP 106/65
[2017-07-09 19:46] VITALS: BP 110/68
[2017-07-09] MEDS: ZOLPIDEM TARTRATE 10 MG TABLET PO PRN (21:36)
[2017-07-09] MEDS: QUEtiapine FUMARATE 100 MG TABLET PO PRN (21:36)
[2017-07-10] MEDS: LEVOTHYROXINE SODIUM 25 MCG TABLET PO SCH (06:25)
[2017-07-10 06:46] VITALS: BP 104/61
[2017-07-10 08:53] VITALS: BP 110/61
[2017-07-10] MEDS: NICOTINE 21 MG/24 HOUR PATCH TD SCH (09:13)
[2017-07-10] MEDS: AMOX TR/POT CLAV 500 MG/125 MG TABLET PO SCH ×2 (09:13→16:27)
[2017-07-10] MEDS: DOCUSATE SODIUM 100 MG CAPSULE PO SCH (09:14)
[2017-07-10] MEDS: OMEPRAZOLE 20 MG CAPSULE PO SCH (09:14)
[2017-07-10] MEDS: BuPROPion HCL XL 150 MG ER TABLET PO SCH (09:14)
[2017-07-10] MEDS: QUEtiapine FUMARATE 200 MG TABLET PO SCH ×2 (09:14→16:27)
[2017-07-10] MEDS: CHOLECALCIFEROL (VIT D3) 1,000 UNITS TABLET PO SCH (09:14)
[2017-07-10] MEDS: MULTIVITAMINS WITH MINERALS, THERAPEUTIC TABLET PO SCH (09:14)
[2017-07-10] MEDS: METHADONE HCL 10 MG TABLET PO SCH (09:14)
[2017-07-10] MEDS: DIAZEPAM 5 MG TABLET PO SCH ×2 (09:15→16:27)
[2017-07-10] MEDS: FLUTICASONE/VILANTEROL 200-25 MCG/INH INHALER [14] IH SCH (09:15)
[2017-07-10 16:14] VITALS: BP 114/67
[2017-07-11 00:29] VITALS: BP 110/61
[2017-07-11] MEDS: LEVOTHYROXINE SODIUM 25 MCG TABLET PO SCH (06:35)
[2017-07-11 08:17] VITALS: BP 133/67
[2017-07-11] MEDS ORDERED: DIAZEPAM 5 MG TABLET PO ONE (09:00)
[2017-07-11] MEDS: QUEtiapine FUMARATE 200 MG TABLET PO SCH ×2 (09:00→17:32)
[2017-07-11 09:27] LABS: BASOPHILS # (AUTO) 0.02 K/uL (0.00-0.20); BASOPHILS % (AUTO) 0.2 % (0.0-2.0); EOSINOPHILS # (AUTO) 0.22 K/uL (0.00-0.70); EOSINOPHILS % (AUTO) 2.73 % (1.0-6.0); HEMATOCRIT 33.6 % (41-53); HEMOGLOBIN 11.2 g/dL (13.5-17.5); LYMPHOCYTES # (AUTO) 1.3 K/uL (1.0-4.8); LYMPHOCYTES % (AUTO) 15.8 % (22.0-44.0); MEAN CORPUSCULAR HEMOGLOBIN 28.6 pg (26.0-34.0); MEAN CORPUSCULAR HGB CONC 33.3 G/dL (31.0-37.0); MEAN CORPUSCULAR VOLUME 86 fL (80-100); MONOCYTES # (AUTO) 0.8 K/uL (0.1-1.0); MONOCYTES % (AUTO) 10.2 % (2.0-9.0); NEUTROPHILS # (AUTO) 5.8 K/uL (1.8-7.7); PLATELET COUNT (AUTO) 301 K/uL (150-450); RED CELL DISTRIBUTION WIDTH 15.2 % (11.5-14.5); WHITE BLOOD COUNT (AUTO) 8.2 K/uL (4.5-11.0)
[2017-07-11] MEDS: MULTIVITAMINS WITH MINERALS, THERAPEUTIC TABLET PO SCH (09:32)
[2017-07-11] MEDS: OMEPRAZOLE 20 MG CAPSULE PO SCH (09:32)
[2017-07-11] MEDS: BuPROPion HCL XL 150 MG ER TABLET PO SCH (09:32)
[2017-07-11] MEDS: METHADONE HCL 10 MG TABLET PO SCH (09:32)
[2017-07-11] MEDS: AMOX TR/POT CLAV 500 MG/125 MG TABLET PO SCH ×2 (09:32→17:32)
[2017-07-11] MEDS: DOCUSATE SODIUM 100 MG CAPSULE PO SCH (09:32)
[2017-07-11] MEDS: CHOLECALCIFEROL (VIT D3) 1,000 UNITS TABLET PO SCH (09:32)
[2017-07-11] MEDS: FLUTICASONE/VILANTEROL 200-25 MCG/INH INHALER [14] IH SCH (09:33)
[2017-07-11] MEDS: NICOTINE 21 MG/24 HOUR PATCH TD SCH (09:36)
[2017-07-11 09:50] LABS: HEMOGLOBIN A1C 5.6 % (4.5-6.2)
[2017-07-11 09:59] LABS: ALANINE AMINOTRANSFERASE 18 U/L (12-78); ALBUMIN 2.7 g/dL (3.4-5.0); ANION GAP 8 mmol/L (8-16); ASPARTATE AMINOTRANSFERASE 16 U/L (15-37); BILIRUBIN,TOTAL 0.2 mg/dL (0.1-1.0); CALCIUM, TOTAL 8.6 mg/dL (8.8-10.5); CARBON DIOXIDE 29 mmol/L (22-29); CHLORIDE 101 mmol/L (98-107); CHOL/HDL RATIO 3.8 (4.2-7.3); CREATININE 0.99 mg/dL (0.60-1.30); GLOMERULAR FILTR. RATE CALC > 60 mL/min (>60); POTASSIUM 4.7 mmol/L (3.5-5.1); SODIUM SERUM 138 mmol/L (136-145); THYROID STIMULATING HORMONE 6.25 uIU/mL (0.36-3.74); UREA NITROGEN, BLOOD 24 mg/dL (7-18)
[2017-07-11 16:26] VITALS: BP 119/66
[2017-07-11] MEDS ORDERED: BUPR-93 PO (17:42)
[2017-07-11] MEDS ORDERED: MUPIROCIN CALCIUM 2% 15 GM CREAM TP SCH (17:45)
[2017-07-11] MEDS: QUEtiapine FUMARATE 100 MG TABLET PO PRN (20:36)
[2017-07-11] MEDS: MUPIROCIN CALCIUM 2% 22 GM OINTMENT NASAL SCH (22:11)
[2017-07-12] MEDS: LEVOTHYROXINE SODIUM 25 MCG TABLET PO SCH (06:58)
[2017-07-12 08:05] VITALS: BP 134/90
[2017-07-12] MEDS: DOCUSATE SODIUM 100 MG CAPSULE PO SCH (09:00)
[2017-07-12] MEDS: QUEtiapine FUMARATE 200 MG TABLET PO SCH ×3 (09:00→16:50)
[2017-07-12] MEDS: FLUTICASONE/VILANTEROL 200-25 MCG/INH INHALER [14] IH SCH (09:38)
[2017-07-12] MEDS: AMOX TR/POT CLAV 500 MG/125 MG TABLET PO SCH ×2 (09:38→16:50)
[2017-07-12] MEDS: OMEPRAZOLE 20 MG CAPSULE PO SCH (09:39)
[2017-07-12] MEDS: MULTIVITAMINS WITH MINERALS, THERAPEUTIC TABLET PO SCH (09:39)
[2017-07-12] MEDS: CHOLECALCIFEROL (VIT D3) 1,000 UNITS TABLET PO SCH (09:40)
[2017-07-12] MEDS: METHADONE HCL 10 MG TABLET PO SCH (09:40)
[2017-07-12] MEDS: BuPROPion HCL XL 150 MG ER TABLET PO SCH (09:40)
[2017-07-12] MEDS: NICOTINE 21 MG/24 HOUR PATCH TD SCH (09:41)
[2017-07-12] MEDS: MUPIROCIN CALCIUM 2% 22 GM OINTMENT NASAL SCH ×2 (11:04→16:50)
[2017-07-12 16:48] VITALS: BP_SYST 130; BP_DIAS 8; BP_DIAS 85
[2017-07-12] MEDS: QUEtiapine FUMARATE 100 MG TABLET PO PRN (20:07)
[2017-07-13] MEDS: QUEtiapine FUMARATE 100 MG TABLET PO PRN (02:01)
[2017-07-13] MEDS: ZOLPIDEM TARTRATE 10 MG TABLET PO PRN (02:01)
[2017-07-13 02:21] VITALS: BP 132/78
[2017-07-13] MEDS: LEVOTHYROXINE SODIUM 25 MCG TABLET PO SCH (06:56)
[2017-07-13] MEDS: QUEtiapine FUMARATE 200 MG TABLET PO SCH (09:00)
[2017-07-13] MEDS: OMEPRAZOLE 20 MG CAPSULE PO SCH (09:37)
[2017-07-13] MEDS: DOCUSATE SODIUM 100 MG CAPSULE PO SCH (09:38)
[2017-07-13] MEDS: MULTIVITAMINS WITH MINERALS, THERAPEUTIC TABLET PO SCH (09:38)
[2017-07-13] MEDS: BuPROPion HCL XL 150 MG ER TABLET PO SCH (09:38)
[2017-07-13] MEDS: CHOLECALCIFEROL (VIT D3) 1,000 UNITS TABLET PO SCH (09:38)
[2017-07-13] MEDS: METHADONE HCL 10 MG TABLET PO SCH (09:38)
[2017-07-13] MEDS: MUPIROCIN CALCIUM 2% 22 GM OINTMENT NASAL SCH (09:39)
[2017-07-13] MEDS: AMOX TR/POT CLAV 500 MG/125 MG TABLET PO SCH (09:40)
[2017-07-13] MEDS: FLUTICASONE/VILANTEROL 200-25 MCG/INH INHALER [14] IH SCH (09:55)
[2017-07-13] MEDS: NICOTINE 21 MG/24 HOUR PATCH TD SCH (09:56)
[2017-07-13] MEDS ORDERED: AMOX1TAB15 PO (10:12)
[2017-07-13] MEDS ORDERED: VITAD1000 PO (10:13)
[2017-07-13] MEDS ORDERED: FLUT1BLS IH (10:13)
[2017-07-13] MEDS ORDERED: DSS100 PO (10:14)
[2017-07-13] MEDS ORDERED: MULT1CAP36 PO (10:17)
[2017-07-13] MEDS ORDERED: MUPI1OIN4 NS (10:19)
[2017-07-13] MEDS ORDERED: OMEP20 PO (10:20)
== END 2017-07-13 11:45 | disposition home or self-care (01) | DRG 750 ==
LOC: B2S 07-09 02:45 → 3EI 07-11 19:22
PROVIDERS: ADMIT Psychiatry & Neurology Psychiatry; ATTEND Psychiatry & Neurology Psychiatry
DX: F25.0 Schizoaffective disorder, bipolar type (principal); E43 Unspecified severe protein-calorie malnutrition; R45.851 Suicidal ideations; B18.2 Chronic viral hepatitis C; E03.9 Hypothyroidism, unspecified; E55.9 Vitamin D deficiency, unspecified; F11.20 Opioid dependence, uncomplicated; F17.200 Nicotine dependence, unspecified, uncomplicated; G47.00 Insomnia, unspecified; G89.29 Other chronic pain; I12.9 Hypertensive chronic kidney disease with stage 1 through stage 4 chronic kidney disease, or unspecified chronic kidney disease; N18.3 Chronic kidney disease, stage 3 (moderate); J20.9 Acute bronchitis, unspecified; J44.0 Chronic obstructive pulmonary disease with (acute) lower respiratory infection; K21.9 Gastro-esophageal reflux disease without esophagitis; K59.00 Constipation, unspecified; M19.90 Unspecified osteoarthritis, unspecified site; Z68.1 Body mass index [BMI] 19.9 or less, adult; Z59.0 Homelessness; Z81.8 Family history of other mental and behavioral disorders; Z91.5 Personal history of self-harm
CPT/HCPCS: 83036; 84439; 84443; 87081; J3535

== ENCOUNTER 2017-07-17 20:33 | Inpatient (IN) | payer MEDICAID, OTHER, SELFPAY ==
[~2017-07-17] VITALS: Ht 188 cm; Wt 67.6 kg
[~2017-07-17 20:33] MED LIST changes: +AMOX1TAB15 PO; +BUPR-93 PO; -BUPR100 PO; -DIAZ10 PO; +DSS100 PO; +FLUT1BLS IH; -LEVO100 PO; +LEVO100T4 PO; -MIRALAX PO; -MOME13HF2 IH; +MULT1CAP36 PO; +MUPI1OIN4 NS; +OMEP20 PO; +QUET100T PO; -QUET200T PO; +VITAD1000 PO
[2017-07-18] MEDS ORDERED: LORazepam 1 MG TABLET PO PRN (01:45)
[2017-07-18] MEDS ORDERED: ZOLPIDEM TARTRATE 10 MG TABLET PO PRN (01:45)
[2017-07-18] MEDS: QUEtiapine FUMARATE 100 MG TABLET PO PRN ×3 (03:42→21:47)
[2017-07-18 03:54] LABS: BASOPHILS % (AUTO) 0.4 % (0.0-2.0); EOSINOPHILS % (AUTO) 1.5 % (1.0-6.0); HEMATOCRIT 36.7 % (41-53); HEMOGLOBIN 12.3 g/dL (13.5-17.5); LYMPHOCYTES # (AUTO) 1.6 K/uL (1.0-4.8); LYMPHOCYTES % (AUTO) 20.2 % (22.0-44.0); MEAN CORPUSCULAR HEMOGLOBIN 28.6 pg (26.0-34.0); MEAN CORPUSCULAR HGB CONC 33.5 G/dL (31.0-37.0); MEAN CORPUSCULAR VOLUME 85 fL (80-100); MONOCYTES # (AUTO) 0.5 K/uL (0.1-1.0); MONOCYTES % (AUTO) 6.4 % (2.0-9.0); NEUTROPHILS # (AUTO) 5.6 K/uL (1.8-7.7); NEUTROPHILS % (AUTO) 71.5 % (40.0-70.0); PLATELET COUNT (AUTO) 430 K/uL (150-450); WHITE BLOOD COUNT (AUTO) 7.9 K/uL (4.5-11.0)
[2017-07-18 03:57] LABS: ANION GAP 12 mmol/L (8-16); CALCIUM, TOTAL 9.2 mg/dL (8.8-10.5); CARBON DIOXIDE 27 mmol/L (22-29); CHLORIDE 100 mmol/L (98-107); CREATININE 0.95 mg/dL (0.60-1.30); GLOMERULAR FILTR. RATE CALC > 60 mL/min (>60); POTASSIUM 4.4 mmol/L (3.5-5.1); SODIUM SERUM 139 mmol/L (136-145); UREA NITROGEN, BLOOD 16 mg/dL (7-18)
[2017-07-18] MEDS ORDERED: QUEtiapine FUMARATE 100 MG TABLET PO ONE (04:00)
[2017-07-18 04:03] LABS: ALANINE AMINOTRANSFERASE 20 U/L (12-78); ALBUMIN 3.4 g/dL (3.4-5.0); ASPARTATE AMINOTRANSFERASE 19 U/L (15-37); BILIRUBIN,TOTAL 0.4 mg/dL (0.1-1.0); TOTAL PROTEIN, SERUM 7.4 g/dL (6.4-8.2)
[2017-07-18] MEDS ORDERED: BUPR100 PO (09:00)
[2017-07-18] MEDS ORDERED: QUET200T PO (09:00)
[2017-07-18] MEDS: LORazepam 1 MG TABLET PO PRN ×2 (17:10→21:47)
[2017-07-18 20:28] VITALS: BP 139/87
[2017-07-18] MEDS ORDERED: ALBUTEROL SULFATE HFA 90 MCG/PUFF 8 GM INHALER IH PRN (22:30)
[2017-07-19] MEDS: LEVOTHYROXINE SODIUM 25 MCG TABLET PO SCH (06:13)
[2017-07-19 08:30] VITALS: BP 118/78
[2017-07-19] MEDS: NICOTINE 21 MG/24 HOUR PATCH TD SCH (09:00)
[2017-07-19] MEDS: CHOLECALCIFEROL (VIT D3) 1,000 UNITS TABLET PO SCH ×2 (09:03→09:07)
[2017-07-19] MEDS: MULTIVITAMINS WITH MINERALS, THERAPEUTIC TABLET PO SCH (09:03)
[2017-07-19] MEDS: OMEPRAZOLE 20 MG CAPSULE PO SCH (09:04)
[2017-07-19] MEDS: FLUTICASONE/VILANTEROL 200-25 MCG/INH INHALER [14] IH SCH (09:04)
[2017-07-19] MEDS ORDERED: METHADONE HCL 10 MG TABLET PO SCH (09:30)
[2017-07-19] MEDS ORDERED: IBUPROFEN 600 MG TABLET PO PRN (09:30)
[2017-07-19] MEDS ORDERED: MAGNESIUM HYDROXIDE SUSPENSION 30 ML UDCUP PO PRN (09:30)
[2017-07-19] MEDS ORDERED: ONDANSETRON HCL 4 MG TABLET PO PRN (09:30)
[2017-07-19] MEDS ORDERED: BACITRACIN 28.4 GM OINTMENT TP PRN (09:30)
[2017-07-19] MEDS ORDERED: CloNIDine HCL 0.1 MG TABLET PO PRN (09:30)
[2017-07-19] MEDS ORDERED: MAG HYDROX/AL HYDROX/SIMETH ES 30 ML SUSPENSION UDCUP PO PRN (09:30)
[2017-07-19] MEDS ORDERED: ACETAMINOPHEN 325 MG TABLET PO PRN (09:30)
[2017-07-19] MEDS ORDERED: PETROLATUM,WHITE 71 GM JELLY TP PRN (09:30)
[2017-07-19] MEDS ORDERED: ALBUTEROL SULFATE HFA 90 MCG/PUFF 8 GM INHALER IH PRN (09:30)
[2017-07-19] MEDS ORDERED: LOPERAMIDE HCL 2 MG CAPSULE PO PRN (09:30)
[2017-07-19] MEDS ORDERED: BENZOCAINE/MENTHOL LOZENGE [8 LOZENGES/PACKET] MM PRN (09:45)
[2017-07-19] MEDS: QUEtiapine FUMARATE 100 MG TABLET PO PRN (16:10)
[2017-07-19 16:49] VITALS: BP 119/82
[2017-07-19] MEDS: QUEtiapine FUMARATE 200 MG TABLET PO SCH (17:56)
[2017-07-19] MEDS: TRIAMCINOLONE 0.1% 15 GM OINTMENT TP SCH (21:08)
[2017-07-20] MEDS: LEVOTHYROXINE SODIUM 25 MCG TABLET PO SCH (06:47)
[2017-07-20 08:30] VITALS: BP 121/88
[2017-07-20] MEDS: CHOLECALCIFEROL (VIT D3) 1,000 UNITS TABLET PO SCH (08:30)
[2017-07-20] MEDS: OMEPRAZOLE 20 MG CAPSULE PO SCH (08:30)
[2017-07-20] MEDS: MULTIVITAMINS WITH MINERALS, THERAPEUTIC TABLET PO SCH (08:31)
[2017-07-20] MEDS: BuPROPion HCL XL 150 MG ER TABLET PO SCH (08:32)
[2017-07-20] MEDS: FLUTICASONE/VILANTEROL 200-25 MCG/INH INHALER [14] IH SCH (08:32)
[2017-07-20] MEDS: TRIAMCINOLONE 0.1% 15 GM OINTMENT TP SCH ×3 (08:32→16:31)
[2017-07-20] MEDS: QUEtiapine FUMARATE 200 MG TABLET PO SCH ×2 (09:00→16:31)
[2017-07-20] MEDS: NICOTINE 21 MG/24 HOUR PATCH TD SCH (09:00)
[2017-07-20] MEDS: QUEtiapine FUMARATE 100 MG TABLET PO PRN (14:05)
[2017-07-20 18:40] VITALS: BP 119/84
[2017-07-21] MEDS: LEVOTHYROXINE SODIUM 25 MCG TABLET PO SCH (06:53)
[2017-07-21] MEDS ORDERED: TRIA15CR45 TP (07:49)
[2017-07-21] MEDS: FLUTICASONE/VILANTEROL 200-25 MCG/INH INHALER [14] IH SCH (08:25)
[2017-07-21] MEDS: TRIAMCINOLONE 0.1% 15 GM OINTMENT TP SCH (08:27)
[2017-07-21] MEDS: BuPROPion HCL XL 150 MG ER TABLET PO SCH (08:55)
[2017-07-21] MEDS: OMEPRAZOLE 20 MG CAPSULE PO SCH (08:56)
[2017-07-21] MEDS: QUEtiapine FUMARATE 200 MG TABLET PO SCH (08:56)
[2017-07-21] MEDS: MULTIVITAMINS WITH MINERALS, THERAPEUTIC TABLET PO SCH (08:56)
[2017-07-21] MEDS: CHOLECALCIFEROL (VIT D3) 1,000 UNITS TABLET PO SCH (08:56)
[2017-07-21] MEDS: NICOTINE 21 MG/24 HOUR PATCH TD SCH (08:58)
[2017-07-21 10:12] VITALS: BP 106/66
== END 2017-07-21 10:50 | disposition home or self-care (01) | DRG 750 ==
LOC: BV PSY EVL 07-18 02:48 → AHU 07-18 13:02 → 3EI 07-18 15:49
PROVIDERS: ADMIT Psychiatry & Neurology Psychiatry; ATTEND Psychiatry & Neurology Psychiatry
DX: F25.9 Schizoaffective disorder, unspecified (principal); E43 Unspecified severe protein-calorie malnutrition; R45.851 Suicidal ideations; F11.20 Opioid dependence, uncomplicated; I12.9 Hypertensive chronic kidney disease with stage 1 through stage 4 chronic kidney disease, or unspecified chronic kidney disease; E55.9 Vitamin D deficiency, unspecified; B18.2 Chronic viral hepatitis C; E03.9 Hypothyroidism, unspecified; F17.200 Nicotine dependence, unspecified, uncomplicated; F31.9 Bipolar disorder, unspecified; F41.9 Anxiety disorder, unspecified; G47.00 Insomnia, unspecified; J44.9 Chronic obstructive pulmonary disease, unspecified; K21.9 Gastro-esophageal reflux disease without esophagitis; M19.90 Unspecified osteoarthritis, unspecified site; N18.9 Chronic kidney disease, unspecified; Z59.0 Homelessness; Z71.6 Tobacco abuse counseling; Z79.899 Other long term (current) drug therapy; Z81.8 Family history of other mental and behavioral disorders; Z91.5 Personal history of self-harm
CPT/HCPCS: 87081; 99285; G0480

== ENCOUNTER 2017-08-03 00:22 | Emergency (ER) | payer MEDICAID, OTHER ==
[~2017-08-03] VITALS: Ht 188 cm; Wt 70.5 kg
[~2017-08-03 00:22] MED LIST changes: -ALBU8HFA IH; -AMOX1TAB15 PO; -DSS100 PO; -METH10 PO; -MUPI1OIN4 NS; +TRIA15CR45 TP
[2017-08-03] MEDS ORDERED: QUET300T2 PO (00:38)
[2017-08-03 01:20] LABS: BASOPHILS % (AUTO) 0.4 % (0.0-2.0); EOSINOPHILS % (AUTO) 2.9 % (1.0-6.0); HEMATOCRIT 35.9 % (41-53); HEMOGLOBIN 11.9 g/dL (13.5-17.5); LYMPHOCYTES # (AUTO) 1.4 K/uL (1.0-4.8); LYMPHOCYTES % (AUTO) 19.7 % (22.0-44.0); MEAN CORPUSCULAR HEMOGLOBIN 28.9 pg (26.0-34.0); MEAN CORPUSCULAR HGB CONC 33.2 G/dL (31.0-37.0); MEAN CORPUSCULAR VOLUME 87 fL (80-100); MONOCYTES # (AUTO) 0.6 K/uL (0.1-1.0); MONOCYTES % (AUTO) 8.4 % (2.0-9.0); NEUTROPHILS % (AUTO) 68.6 % (40.0-70.0); PLATELET COUNT (AUTO) 178 K/uL (150-450); RED BLOOD CELL COUNT(AUTO) 4.13 MIL/uL (4.50-5.90); RED CELL DISTRIBUTION WIDTH 17.6 % (11.5-14.5); WHITE BLOOD COUNT (AUTO) 7.3 K/uL (4.5-11.0)
[2017-08-03 01:28] LABS: ANION GAP 9 mmol/L (8-16); CALCIUM, TOTAL 9.1 mg/dL (8.8-10.5); CARBON DIOXIDE 26 mmol/L (22-29); CHLORIDE 107 mmol/L (98-107); CREATININE 1.02 mg/dL (0.60-1.30); GLOMERULAR FILTR. RATE CALC > 60 mL/min (>60); POTASSIUM 4.2 mmol/L (3.5-5.1); SODIUM SERUM 142 mmol/L (136-145); UREA NITROGEN, BLOOD 16 mg/dL (7-18)
[2017-08-03] MEDS ORDERED: SODIUM CHLORIDE 0.9% 500 ML IV ONE (01:30)
[2017-08-03] MEDS ORDERED: MORPHINE SULFATE 4 MG/ML SYRINGE IVP ONE (01:30)
[2017-08-03] MEDS ORDERED: ONDANSETRON HCL 4 MG/2 ML VIAL IVP ONE (01:30)
[2017-08-03 01:34] LABS: ALANINE AMINOTRANSFERASE 16 U/L (12-78); ALBUMIN 3.7 g/dL (3.4-5.0); ASPARTATE AMINOTRANSFERASE 16 U/L (15-37); BILIRUBIN,TOTAL 0.5 mg/dL (0.1-1.0); TOTAL PROTEIN, SERUM 6.8 g/dL (6.4-8.2)
[2017-08-03] MEDS ORDERED: HYDROmorphone 2 MG/ML SYRINGE IVP ONE (03:15)
[2017-08-03] MEDS ORDERED: LORazepam 2 MG/ML VIAL IVP ONE (03:15)
[2017-08-03 03:43] VITALS: BP 141/82
== END 2017-08-03 03:45 | disposition home or self-care (01) ==
LOC: EMS 00:24
DX: K59.00 Constipation, unspecified (principal); J44.9 Chronic obstructive pulmonary disease, unspecified; F17.210 Nicotine dependence, cigarettes, uncomplicated; F11.90 Opioid use, unspecified, uncomplicated
CPT/HCPCS: 36415; 71010; 74010; 80053; 85025; 93005; 96361; 96374; 96375; 99285; J1170; J2060; J2270; J2405; J7040

== ENCOUNTER 2017-08-30 21:47 | Inpatient (IN) | payer MEDICAID, OTHER, SELFPAY ==
[~2017-08-30] VITALS: Ht 175.3 cm; Wt 67.0 kg
[~2017-08-30 21:47] MED LIST changes: -BUPR-93 PO; -FLUT1BLS IH; -LEVO100T4 PO; -MULT1CAP36 PO; -OMEP20 PO; -QUET100T PO; +QUET300T2 PO; -TRIA15CR45 TP; -VITAD1000 PO
[2017-08-30 22:59] LABS: EOSINOPHILS % (AUTO) 4.2 % (1.0-6.0); HEMATOCRIT 35.7 % (41-53); HEMOGLOBIN 11.7 g/dL (13.5-17.5); LYMPHOCYTES # (AUTO) 1.1 K/uL (1.0-4.8); LYMPHOCYTES % (AUTO) 19.8 % (22.0-44.0); MEAN CORPUSCULAR HEMOGLOBIN 29.2 pg (26.0-34.0); MEAN CORPUSCULAR HGB CONC 32.8 G/dL (31.0-37.0); MEAN CORPUSCULAR VOLUME 89 fL (80-100); MONOCYTES # (AUTO) 0.5 K/uL (0.1-1.0); MONOCYTES % (AUTO) 8.7 % (2.0-9.0); NEUTROPHILS # (AUTO) 3.8 K/uL (1.8-7.7); NEUTROPHILS % (AUTO) 66.3 % (40.0-70.0); PLATELET COUNT (AUTO) 198 K/uL (150-450); RED BLOOD CELL COUNT(AUTO) 4.01 MIL/uL (4.50-5.90); RED CELL DISTRIBUTION WIDTH 17.1 % (11.5-14.5); WHITE BLOOD COUNT (AUTO) 5.7 K/uL (4.5-11.0)
[2017-08-30 23:08] LABS: ANION GAP 9 mmol/L (8-16); CALCIUM, TOTAL 8.3 mg/dL (8.8-10.5); CARBON DIOXIDE 27 mmol/L (22-29); CHLORIDE 103 mmol/L (98-107); CREATININE 1.17 mg/dL (0.60-1.30); GLOMERULAR FILTR. RATE CALC > 60 mL/min (>60); POTASSIUM 3.8 mmol/L (3.5-5.1); SODIUM SERUM 139 mmol/L (136-145); UREA NITROGEN, BLOOD 13 mg/dL (7-18)
[2017-08-30 23:14] LABS: ALANINE AMINOTRANSFERASE 19 U/L (12-78); ASPARTATE AMINOTRANSFERASE 22 U/L (15-37); BILIRUBIN,TOTAL 0.2 mg/dL (0.1-1.0); TOTAL PROTEIN, SERUM 6.9 g/dL (6.4-8.2)
[2017-08-31] MEDS ORDERED: ZOLPIDEM TARTRATE 10 MG TABLET PO PRN (05:30)
[2017-08-31] MEDS ORDERED: HALOPERIDOL 5 MG TABLET PO PRN (05:30)
[2017-08-31] MEDS ORDERED: LORazepam 2 MG TABLET PO PRN (05:30)
[2017-08-31] MEDS ORDERED: NYSTATIN/TRIAMCINOLONE 15 GM OINTMENT TP ONE (05:45)
[2017-08-31 09:07] VITALS: BP 150/100
[2017-08-31] MEDS: METHADONE HCL 10 MG TABLET PO SCH (10:12)
[2017-08-31] MEDS: NICOTINE 21 MG/24 HOUR PATCH TD SCH (11:08)
[2017-08-31] MEDS: BuPROPion HCL XL 150 MG ER TABLET PO SCH (13:57)
[2017-08-31 19:02] VITALS: BP 145/98
[2017-08-31] MEDS ORDERED: ALBUTEROL SULFATE HFA 90 MCG/PUFF 8 GM INHALER IH PRN (20:15)
[2017-08-31] MEDS ORDERED: ACETAMINOPHEN 325 MG TABLET PO PRN (20:15)
[2017-08-31] MEDS ORDERED: IBUPROFEN 400 MG TABLET PO PRN (20:15)
[2017-08-31] MEDS: QUEtiapine FUMARATE 300 MG TABLET PO SCH (20:24)
[2017-09-01] MEDS ORDERED: INSULIN ASPART 100 UNITS/ML SQ PRN (06:30)
[2017-09-01] MEDS ORDERED: DEXTROSE 50%-WATER 25 GM/50 ML SYRINGE IVP PRN (06:30)
[2017-09-01 07:39] LABS: CHOL/HDL RATIO 1.9 (4.2-7.3); THYROID STIMULATING HORMONE 6.43 uIU/mL (0.36-3.74)
[2017-09-01] MEDS: NICOTINE 21 MG/24 HOUR PATCH TD SCH (09:00)
[2017-09-01] MEDS: METHADONE HCL 10 MG TABLET PO SCH (09:26)
[2017-09-01] MEDS: BuPROPion HCL XL 150 MG ER TABLET PO SCH (09:27)
[2017-09-01 10:30] VITALS: BP 100/66
[2017-09-01 17:11] VITALS: BP 136/82
[2017-09-01] MEDS: QUEtiapine FUMARATE 300 MG TABLET PO SCH (20:35)
[2017-09-02 08:15] VITALS: BP 139/81
[2017-09-02] MEDS: BuPROPion HCL XL 150 MG ER TABLET PO SCH (08:20)
[2017-09-02] MEDS: METHADONE HCL 10 MG TABLET PO SCH (08:26)
[2017-09-02] MEDS: NICOTINE 21 MG/24 HOUR PATCH TD SCH (08:37)
[2017-09-02] MEDS ORDERED: BUPR-93 PO (11:30)
== END 2017-09-02 13:45 | disposition home or self-care (01) | DRG 750 ==
LOC: EMS 21:49 → 3EI 08-31 06:41
DX: F25.1 Schizoaffective disorder, depressive type (principal); R45.851 Suicidal ideations; Z59.0 Homelessness; I10 Essential (primary) hypertension; B19.20 Unspecified viral hepatitis C without hepatic coma; D64.9 Anemia, unspecified; E03.9 Hypothyroidism, unspecified; E78.5 Hyperlipidemia, unspecified; F11.90 Opioid use, unspecified, uncomplicated; F17.200 Nicotine dependence, unspecified, uncomplicated; F31.9 Bipolar disorder, unspecified; J44.9 Chronic obstructive pulmonary disease, unspecified; K21.9 Gastro-esophageal reflux disease without esophagitis; L30.9 Dermatitis, unspecified; M19.90 Unspecified osteoarthritis, unspecified site; Z79.899 Other long term (current) drug therapy; Z91.5 Personal history of self-harm; F10.20 Alcohol dependence, uncomplicated; N28.9 Disorder of kidney and ureter, unspecified; Z71.6 Tobacco abuse counseling; Z71.51 Drug abuse counseling and surveillance of drug abuser
CPT/HCPCS: 84443; 99285; G0480

== ENCOUNTER 2017-09-21 20:04 | Inpatient (IN) | payer MEDICAID, OTHER, SELFPAY ==
[~2017-09-21] VITALS: Ht 185.4 cm; Wt 63.5 kg
[~2017-09-21 20:04] MED LIST changes: +BUPR-93 PO
[2017-09-21 20:43] LABS: BASOPHILS % (AUTO) 0.6 % (0.0-2.0); EOSINOPHILS % (AUTO) 2.8 % (1.0-6.0); HEMATOCRIT 37.7 % (41-53); HEMOGLOBIN 12.8 g/dL (13.5-17.5); LYMPHOCYTES # (AUTO) 2.3 K/uL (1.0-4.8); LYMPHOCYTES % (AUTO) 28.8 % (22.0-44.0); MEAN CORPUSCULAR HEMOGLOBIN 29.8 pg (26.0-34.0); MEAN CORPUSCULAR HGB CONC 33.9 G/dL (31.0-37.0); MEAN CORPUSCULAR VOLUME 88 fL (80-100); MONOCYTES % (AUTO) 12.7 % (2.0-9.0); NEUTROPHILS # (AUTO) 4.3 K/uL (1.8-7.7); NEUTROPHILS % (AUTO) 55.1 % (40.0-70.0); PLATELET COUNT (AUTO) 269 K/uL (150-450); RED BLOOD CELL COUNT(AUTO) 4.29 MIL/uL (4.50-5.90); RED CELL DISTRIBUTION WIDTH 16.7 % (11.5-14.5); WHITE BLOOD COUNT (AUTO) 7.9 K/uL (4.5-11.0)
[2017-09-21 20:58] LABS: CREATININE 2.47 mg/dL (0.60-1.30); POTASSIUM 4.9 mmol/L (3.5-5.1)
[2017-09-21 21:03] LABS: ALBUMIN 3.9 g/dL (3.4-5.0); BILIRUBIN,TOTAL 0.3 mg/dL (0.1-1.0); TOTAL PROTEIN, SERUM 7.7 g/dL (6.4-8.2)
[2017-09-21] MEDS ORDERED: BACITRACIN 0.9 GM PACKET OINTMENT TP ONE (22:30)
[2017-09-22] MEDS ORDERED: ZOLPIDEM TARTRATE 10 MG TABLET PO PRN (01:30)
[2017-09-22 01:36] VITALS: BP 101/76
[2017-09-22 02:16] LABS: APPEARANCE,URINE CLOUDY (CLEAR); GLUCOSE, URINE (UA) NEGATIVE (NEGATIVE); KETONES,URINE NEGATIVE (NEGATIVE); LEUKOCYTE ESTERASE ,URINE NEGATIVE (NEGATIVE); OCCULT BLOOD,URINE NEGATIVE (NEGATIVE); PROTEIN,URINE POS 1+ (NEGATIVE)
[2017-09-22 02:19] LABS: ADD UA MICROSCOPIC NO
[2017-09-22] MEDS ORDERED: INFLUENZA VIRUS VACCINE QVS 2017-18 (3YR+)/PF 60 MCG/0.5 ML SYRINGE IM ONE (02:30)
[2017-09-22] MEDS ORDERED: -PHARMACY VACCINE NOTE- MISC ONE ×2 (02:30)
[2017-09-22 08:15] VITALS: BP 125/74
[2017-09-22] MEDS ORDERED: IBUPROFEN 600 MG TABLET PO PRN (09:00)
[2017-09-22] MEDS ORDERED: CloNIDine HCL 0.1 MG TABLET PO PRN (09:00)
[2017-09-22] MEDS ORDERED: ACETAMINOPHEN 325 MG TABLET PO PRN (09:00)
[2017-09-22] MEDS ORDERED: BACITRACIN 28.4 GM OINTMENT TP PRN (09:00)
[2017-09-22] MEDS ORDERED: ALBUTEROL SULFATE HFA 90 MCG/PUFF 8 GM INHALER IH PRN (09:00)
[2017-09-22] MEDS ORDERED: BENZOCAINE/MENTHOL LOZENGE [8 LOZENGES/PACKET] MM PRN (09:00)
[2017-09-22] MEDS ORDERED: PETROLATUM,WHITE 71 GM JELLY TP PRN (09:00)
[2017-09-22] MEDS ORDERED: MAG HYDROX/AL HYDROX/SIMETH ES 30 ML SUSPENSION UDCUP PO PRN (09:00)
[2017-09-22] MEDS ORDERED: MAGNESIUM HYDROXIDE SUSPENSION 30 ML UDCUP PO PRN (09:00)
[2017-09-22] MEDS ORDERED: LOPERAMIDE HCL 2 MG CAPSULE PO PRN (09:00)
[2017-09-22] MEDS: OMEPRAZOLE 20 MG CAPSULE PO SCH (11:03)
[2017-09-22] MEDS: DOCUSATE SODIUM 100 MG CAPSULE PO SCH (11:03)
[2017-09-22] MEDS: CLOBETASOL 0.05% 15 GM CREAM TP SCH ×2 (11:03→19:04)
[2017-09-22] MEDS: METHADONE HCL 10 MG/5 ML SOLUTION ORAL.SYG PO SCH (11:06)
[2017-09-22 17:09] VITALS: BP 114/65
[2017-09-22] MEDS: QUEtiapine FUMARATE 300 MG TABLET PO SCH (20:10)
[2017-09-23] MEDS: LEVOTHYROXINE SODIUM 50 MCG TABLET PO SCH (06:46)
[2017-09-23 07:01] LABS: ANION GAP 7 mmol/L (8-16); CALCIUM, TOTAL 8.4 mg/dL (8.8-10.5); CARBON DIOXIDE 24 mmol/L (22-29); CHLORIDE 102 mmol/L (98-107); CHOL/HDL RATIO 1.9 (4.2-7.3); CREATININE 1.18 mg/dL (0.60-1.30); GLOMERULAR FILTR. RATE CALC > 60 mL/min (>60); POTASSIUM 4.7 mmol/L (3.5-5.1); SODIUM SERUM 133 mmol/L (136-145); UREA NITROGEN, BLOOD 39 mg/dL (7-18)
[2017-09-23 08:00] VITALS: BP 104/69
[2017-09-23] MEDS: MULTIVITAMINS WITH MINERALS, THERAPEUTIC TABLET PO SCH (10:28)
[2017-09-23] MEDS: BuPROPion HCL XL 150 MG ER TABLET PO SCH (10:28)
[2017-09-23] MEDS: OMEPRAZOLE 20 MG CAPSULE PO SCH (10:28)
[2017-09-23] MEDS: METHADONE HCL 10 MG/5 ML SOLUTION ORAL.SYG PO SCH (10:37)
[2017-09-23] MEDS: DOCUSATE SODIUM 100 MG CAPSULE PO SCH (10:38)
[2017-09-23] MEDS: CLOBETASOL 0.05% 15 GM CREAM TP SCH ×2 (13:41→16:17)
[2017-09-23 18:16] VITALS: BP 136/76
[2017-09-23] MEDS: QUEtiapine FUMARATE 300 MG TABLET PO SCH (20:03)
[2017-09-24] MEDS: LEVOTHYROXINE SODIUM 50 MCG TABLET PO SCH (06:27)
[2017-09-24 08:30] VITALS: BP 130/86
[2017-09-24] MEDS: DOCUSATE SODIUM 100 MG CAPSULE PO SCH (09:18)
[2017-09-24] MEDS: OMEPRAZOLE 20 MG CAPSULE PO SCH (09:18)
[2017-09-24] MEDS: BuPROPion HCL XL 150 MG ER TABLET PO SCH (09:18)
[2017-09-24] MEDS: MULTIVITAMINS WITH MINERALS, THERAPEUTIC TABLET PO SCH (09:19)
[2017-09-24] MEDS: CLOBETASOL 0.05% 15 GM CREAM TP SCH ×2 (09:20→17:00)
[2017-09-24] MEDS: METHADONE HCL 10 MG/5 ML SOLUTION ORAL.SYG PO SCH (09:32)
[2017-09-24 17:25] VITALS: BP 122/75
[2017-09-24] MEDS: HALOPERIDOL 5 MG TABLET PO PRN (19:35)
[2017-09-24] MEDS: LORazepam 2 MG TABLET PO PRN (19:36)
[2017-09-24] MEDS: ONDANSETRON HCL 4 MG TABLET PO PRN (20:07)
[2017-09-24] MEDS: QUEtiapine FUMARATE 300 MG TABLET PO SCH (21:45)
[2017-09-25 00:53] VITALS: BP 103/55
[2017-09-25] MEDS: ONDANSETRON HCL 4 MG TABLET PO PRN (02:08)
[2017-09-25] MEDS: HALOPERIDOL 5 MG TABLET PO PRN (04:21)
[2017-09-25] MEDS: LEVOTHYROXINE SODIUM 50 MCG TABLET PO SCH (06:05)
[2017-09-25] MEDS: LORazepam 2 MG TABLET PO PRN (06:05)
[2017-09-25] MEDS ORDERED: ONDANSETRON HCL 4 MG/2 ML VIAL IM PRN ×2 (06:30)
[2017-09-25 08:15] VITALS: BP 107/77
[2017-09-25] MEDS: METHADONE HCL 10 MG/5 ML SOLUTION ORAL.SYG PO SCH (08:19)
[2017-09-25] MEDS: OMEPRAZOLE 20 MG CAPSULE PO SCH (08:21)
[2017-09-25] MEDS: MULTIVITAMINS WITH MINERALS, THERAPEUTIC TABLET PO SCH (08:21)
[2017-09-25] MEDS: DOCUSATE SODIUM 100 MG CAPSULE PO SCH (08:21)
[2017-09-25] MEDS: BuPROPion HCL XL 150 MG ER TABLET PO SCH (08:22)
[2017-09-25] MEDS: CLOBETASOL 0.05% 15 GM CREAM TP SCH (09:00)
[2017-09-25] MEDS ORDERED: FLUoxetine HCL 20 MG CAPSULE PO SCH (09:00)
[2017-09-25] MEDS ORDERED: TEMO15C TP (13:00)
[2017-09-25] MEDS ORDERED: FLUO-191 PO (13:01)
[2017-09-25] MEDS ORDERED: DSS100 PO (13:01)
[2017-09-25] MEDS ORDERED: LEVO50TA11 PO (13:02)
[2017-09-25] MEDS ORDERED: MULT-248 PO (13:02)
[2017-09-25] MEDS ORDERED: OMEP20 PO (13:04)
[2017-09-26] MEDS ORDERED: METHADONE HCL 10 MG/5 ML SOLUTION ORAL.SYG PO SCH (06:00)
== END 2017-09-25 14:27 | disposition home or self-care (01) | DRG 750 ==
LOC: EMS 20:06 → 3EI 09-22 00:30
PROVIDERS: ADMIT Psychiatry & Neurology Psychiatry; ATTEND Psychiatry & Neurology Psychiatry
PROC: 3E0234Z Introduction of Serum, Toxoid and Vaccine into Muscle, Percutaneous Approach (ICD-10-PCS; principal; 2017-09-23)
DX: F25.0 Schizoaffective disorder, bipolar type (principal); R45.851 Suicidal ideations; F11.20 Opioid dependence, uncomplicated; I12.9 Hypertensive chronic kidney disease with stage 1 through stage 4 chronic kidney disease, or unspecified chronic kidney disease; J44.9 Chronic obstructive pulmonary disease, unspecified; F10.20 Alcohol dependence, uncomplicated; F17.210 Nicotine dependence, cigarettes, uncomplicated; N18.9 Chronic kidney disease, unspecified; F19.10 Other psychoactive substance abuse, uncomplicated; F41.9 Anxiety disorder, unspecified; M19.90 Unspecified osteoarthritis, unspecified site; E03.9 Hypothyroidism, unspecified; G47.00 Insomnia, unspecified; B18.2 Chronic viral hepatitis C; L20.9 Atopic dermatitis, unspecified; Z59.0 Homelessness; Z86.14 Personal history of Methicillin resistant Staphylococcus aureus infection; Z91.5 Personal history of self-harm; Z79.899 Other long term (current) drug therapy; Z23 Encounter for immunization; Z81.8 Family history of other mental and behavioral disorders; Z81.1 Family history of alcohol abuse and dependence
CPT/HCPCS: 87081; 90471; 99285; G0480; J2405; Q0162

== ENCOUNTER 2017-10-21 02:47 | Emergency (ER) | payer MEDICAID, OTHER ==
[~2017-10-21] VITALS: Ht 188 cm; Wt 79.5 kg
[~2017-10-21 02:47] MED LIST changes: +DSS100 PO; +FLUO-191 PO; +LEVO50TA11 PO; +MULT-248 PO; +OMEP20 PO; +TEMO15C TP
[2017-10-21 04:09] LABS: BASOPHILS # (AUTO) 0.02 K/uL (0.00-0.20); BASOPHILS % (AUTO) 0.2 % (0.0-2.0); EOSINOPHILS # (AUTO) 0.42 K/uL (0.00-0.70); EOSINOPHILS % (AUTO) 4.17 % (1.0-6.0); HEMATOCRIT 37.4 % (41-53); LYMPHOCYTES # (AUTO) 1.3 K/uL (1.0-4.8); LYMPHOCYTES % (AUTO) 13.3 % (22.0-44.0); MEAN CORPUSCULAR VOLUME 91 fL (80-100); MONOCYTES # (AUTO) 1.3 K/uL (0.1-1.0); MONOCYTES % (AUTO) 12.8 % (2.0-9.0); NEUTROPHILS # (AUTO) 6.9 K/uL (1.8-7.7); NEUTROPHILS % (AUTO) 69.6 % (40.0-70.0); PLATELET COUNT (AUTO) 325 K/uL (150-450); RED BLOOD CELL COUNT(AUTO) 4.13 MIL/uL (4.50-5.90); RED CELL DISTRIBUTION WIDTH 16.2 % (11.5-14.5)
[2017-10-21 04:17] LABS: ANION GAP 5 mmol/L (8-16); CALCIUM, TOTAL 8.8 mg/dL (8.8-10.5); CARBON DIOXIDE 30 mmol/L (22-29); CHLORIDE 100 mmol/L (98-107); CREATININE 1.18 mg/dL (0.60-1.30); GLOMERULAR FILTR. RATE CALC > 60 mL/min (>60); GLUCOSE,RANDOM 83 mg/dL (70-110); POTASSIUM 3.5 mmol/L (3.5-5.1); SODIUM SERUM 135 mmol/L (136-145); UREA NITROGEN, BLOOD 29 mg/dL (7-18)
[2017-10-21 04:23] LABS: ALANINE AMINOTRANSFERASE 37 U/L (12-78); ALBUMIN 2.9 g/dL (3.4-5.0); ALKALINE PHOSPHATASE 112 U/L (46-116); ASPARTATE AMINOTRANSFERASE 37 U/L (15-37); BILIRUBIN,TOTAL 0.4 mg/dL (0.1-1.0); TOTAL PROTEIN, SERUM 7.5 g/dL (6.4-8.2)
[2017-10-21 04:54] VITALS: BP 120/72
== END 2017-10-21 05:46 | disposition home or self-care (01) ==
LOC: EMS 02:50
DX: F20.9 Schizophrenia, unspecified (principal); F10.129 Alcohol abuse with intoxication, unspecified; F31.9 Bipolar disorder, unspecified; J44.9 Chronic obstructive pulmonary disease, unspecified; K75.9 Inflammatory liver disease, unspecified; F17.210 Nicotine dependence, cigarettes, uncomplicated; Z59.0 Homelessness; Z79.899 Other long term (current) drug therapy; Z98.890 Other specified postprocedural states
CPT/HCPCS: 36415; 80053; 85025; 99285; G0480

== ENCOUNTER 2017-10-24 01:41 | Emergency (ER) | payer OTHER ==
[~2017-10-24] VITALS: Ht 170.2 cm; Wt 79.5 kg
[2017-10-24 01:45] VITALS: BP 127/77
[2017-10-24 03:01] LABS: BASOPHILS # (AUTO) 0.09 K/uL (0.00-0.20); EOSINOPHILS # (AUTO) 0.09 K/uL (0.00-0.70); EOSINOPHILS % (AUTO) 0.95 % (1.0-6.0); HEMATOCRIT 40.4 % (41-53); HEMOGLOBIN 13.1 g/dL (13.5-17.5); LYMPHOCYTES % (AUTO) 21.1 % (22.0-44.0); MEAN CORPUSCULAR HEMOGLOBIN 29.3 pg (26.0-34.0); MEAN CORPUSCULAR HGB CONC 32.5 G/dL (31.0-37.0); MEAN CORPUSCULAR VOLUME 90 fL (80-100); MONOCYTES # (AUTO) 0.7 K/uL (0.1-1.0); MONOCYTES % (AUTO) 7.7 % (2.0-9.0); NEUTROPHILS # (AUTO) 6.6 K/uL (1.8-7.7); NEUTROPHILS % (AUTO) 69.4 % (40.0-70.0); PLATELET COUNT (AUTO) 352 K/uL (150-450); RED BLOOD CELL COUNT(AUTO) 4.47 MIL/uL (4.50-5.90); RED CELL DISTRIBUTION WIDTH 15.9 % (11.5-14.5)
[2017-10-24 03:35] LABS: ANION GAP 7 mmol/L (8-16); CALCIUM, TOTAL 9.1 mg/dL (8.8-10.5); CARBON DIOXIDE 32 mmol/L (22-29); CHLORIDE 97 mmol/L (98-107); CREATININE 0.85 mg/dL (0.60-1.30); GLOMERULAR FILTR. RATE CALC > 60 mL/min (>60); GLUCOSE,RANDOM 83 mg/dL (70-110); POTASSIUM 4.5 mmol/L (3.5-5.1); SODIUM SERUM 136 mmol/L (136-145); UREA NITROGEN, BLOOD 16 mg/dL (7-18)
[2017-10-24 03:40] LABS: ALANINE AMINOTRANSFERASE 33 U/L (12-78); ALBUMIN 3.4 g/dL (3.4-5.0); ALKALINE PHOSPHATASE 127 U/L (46-116); ASPARTATE AMINOTRANSFERASE 27 U/L (15-37); BILIRUBIN,TOTAL 0.2 mg/dL (0.1-1.0); TOTAL PROTEIN, SERUM 7.5 g/dL (6.4-8.2)
[2017-10-24 08:07] LABS: AMPHET/METH SCREEN,URINE NEGATIVE (NEGATIVE); BARBITURATE SCREEN, URINE NEGATIVE (NEGATIVE); BENZODIAZEPINES SCREEN,URINE POSITIVE (NEGATIVE); CANNABINOID SCREEN,URINE NEGATIVE (NEGATIVE); COCAINE SCREEN,URINE NEGATIVE (NEGATIVE); METHADONE SCREEN, URINE POSITIVE (NEGATIVE); OPIATE SCREEN,URINE NEGATIVE (NEGATIVE); PHENCYCLIDINE SCREEN,URINE NEGATIVE (NEGATIVE)
[2017-10-25] MEDS ORDERED: BUPR-93 PO (17:36)
[2017-10-25] MEDS ORDERED: QUET300T2 PO (17:36)
[2017-10-25] MEDS ORDERED: METH10 PO (17:36)
[2017-10-25] MEDS ORDERED: FLUO-191 PO (17:36)
== END 2017-10-24 03:24 | disposition left against medical advice (07) ==
LOC: EMS 01:43
DX: F10.239 Alcohol dependence with withdrawal, unspecified (principal); J44.9 Chronic obstructive pulmonary disease, unspecified; F31.9 Bipolar disorder, unspecified; F17.210 Nicotine dependence, cigarettes, uncomplicated; F11.10 Opioid abuse, uncomplicated; Z53.21 Procedure and treatment not carried out due to patient leaving prior to being seen by health care provider; Y90.5 Blood alcohol level of 100-119 mg/100 ml
CPT/HCPCS: 36415; 80053; 80307; 85025; G0480

== ENCOUNTER 2017-10-24 07:31 | Emergency (ER) | payer OTHER ==
[~2017-10-24] VITALS: Ht 172.7 cm; Wt 68.2 kg
[2017-10-24 10:28] LABS: BASOPHILS # (AUTO) 0.14 K/uL (0.00-0.20); BASOPHILS % (AUTO) 1.4 % (0.0-2.0); EOSINOPHILS # (AUTO) 0.17 K/uL (0.00-0.70); EOSINOPHILS % (AUTO) 1.68 % (1.0-6.0); HEMATOCRIT 42.8 % (41-53); HEMOGLOBIN 13.6 g/dL (13.5-17.5); LYMPHOCYTES # (AUTO) 1.7 K/uL (1.0-4.8); LYMPHOCYTES % (AUTO) 16.6 % (22.0-44.0); MEAN CORPUSCULAR HEMOGLOBIN 28.7 pg (26.0-34.0); MEAN CORPUSCULAR HGB CONC 31.8 G/dL (31.0-37.0); MEAN CORPUSCULAR VOLUME 90 fL (80-100); MONOCYTES # (AUTO) 0.7 K/uL (0.1-1.0); MONOCYTES % (AUTO) 7.2 % (2.0-9.0); NEUTROPHILS # (AUTO) 7.4 K/uL (1.8-7.7); NEUTROPHILS % (AUTO) 73.2 % (40.0-70.0); PLATELET COUNT (AUTO) 401 K/uL (150-450); RED BLOOD CELL COUNT(AUTO) 4.73 MIL/uL (4.50-5.90); RED CELL DISTRIBUTION WIDTH 15.9 % (11.5-14.5)
[2017-10-24 10:41] LABS: ANION GAP 7 mmol/L (8-16); CARBON DIOXIDE 33 mmol/L (22-29); CHLORIDE 98 mmol/L (98-107); CREATININE 0.89 mg/dL (0.60-1.30); GLOMERULAR FILTR. RATE CALC > 60 mL/min (>60); GLUCOSE,RANDOM 77 mg/dL (70-110); POTASSIUM 4.2 mmol/L (3.5-5.1); SODIUM SERUM 138 mmol/L (136-145); UREA NITROGEN, BLOOD 13 mg/dL (7-18)
[2017-10-24] MEDS ORDERED: PIPERACILLIN/TAZO 3.375 GM/D5W 50 ML IV ONE (10:45)
[2017-10-24 10:48] LABS: AMMONIA 20 umol/L (11-32)
[2017-10-24 10:49] LABS: TROPONIN I < 0.02 ng/mL (0.00-0.05)
[2017-10-24 10:55] LABS: APPEARANCE,URINE CLEAR (CLEAR); BILIRUBIN,URINE NEGATIVE (NEGATIVE); GLUCOSE, URINE (UA) NEGATIVE (NEGATIVE); KETONES,URINE NEGATIVE (NEGATIVE); LEUKOCYTE ESTERASE ,URINE NEGATIVE (NEGATIVE); NITRATE,URINE NEGATIVE (NEGATIVE); OCCULT BLOOD,URINE TRACE (NEGATIVE); PROTEIN,URINE NEGATIVE (NEGATIVE)
[2017-10-24 10:56] VITALS: BP 106/77
[2017-10-24 10:58] LABS: PROTHROMBIN TIME 10.7 SEC (9.4-11.6)
[2017-10-24 11:05] LABS: ALANINE AMINOTRANSFERASE 20 U/L (12-78); ALBUMIN 3.4 g/dL (3.4-5.0); ALKALINE PHOSPHATASE 135 U/L (46-116); ASPARTATE AMINOTRANSFERASE 30 U/L (15-37); BILIRUBIN,TOTAL 0.3 mg/dL (0.1-1.0); CKMB RELATIVE INDEX 3.1 % (0.0-4.0); CREATINE KINASE MB 6.9 ng/mL (0-5); CREATINE KINASE, TOTAL 223 U/L (39-308); TOTAL PROTEIN, SERUM 8.6 g/dL (6.4-8.2)
[2017-10-24 11:05] LABS: RBC,URINE None Seen /HPF (0-2); WBC,URINE 0-2 /HPF (0-5)
[2017-10-24 11:06] LABS: BACTERIA,URINE None Seen /HPF (None Seen); SQUAMOUS EPITHELIAL CELL,UR Rare /LPF (None Seen)
[2017-10-24 11:10] LABS: AMPHET/METH SCREEN,URINE NEGATIVE (NEGATIVE); BARBITURATE SCREEN, URINE NEGATIVE (NEGATIVE); BENZODIAZEPINES SCREEN,URINE POSITIVE (NEGATIVE); CANNABINOID SCREEN,URINE NEGATIVE (NEGATIVE); COCAINE SCREEN,URINE NEGATIVE (NEGATIVE); METHADONE SCREEN, URINE POSITIVE (NEGATIVE); OPIATE SCREEN,URINE NEGATIVE (NEGATIVE); PHENCYCLIDINE SCREEN,URINE NEGATIVE (NEGATIVE)
[2017-10-25] MEDS ORDERED: QUET300T2 PO (17:36)
[2017-10-25] MEDS ORDERED: FLUO-191 PO (17:36)
[2017-10-25] MEDS ORDERED: METH10 PO (17:36)
[2017-10-25] MEDS ORDERED: BUPR-93 PO (17:36)
== END 2017-10-24 11:59 | disposition left against medical advice (07) ==
LOC: EMS 07:33
DX: T68.XXXA Hypothermia, initial encounter (principal); J44.9 Chronic obstructive pulmonary disease, unspecified; F11.90 Opioid use, unspecified, uncomplicated; F17.210 Nicotine dependence, cigarettes, uncomplicated; Z59.0 Homelessness
CPT/HCPCS: 36415; 51702; 70450; 71010; 72125; 80053; 80307; 81001; 82140; 82550; 82553; 84484; 85025; 85610; 85730; 87040; 93005; 96365; 99285; G0480; J2543

== ENCOUNTER 2017-10-24 23:19 | Emergency (ER) | payer OTHER ==
[~2017-10-24] VITALS: Ht 188 cm; Wt 68.2 kg
[2017-10-24 23:52] LABS: GLUCOSE,POINT OF CARE 137 MG/DL (70-110)
[2017-10-25 00:46] VITALS: BP 116/75
[2017-10-25] MEDS ORDERED: QUET300T2 PO (17:36)
[2017-10-25] MEDS ORDERED: FLUO-191 PO (17:36)
[2017-10-25] MEDS ORDERED: METH10 PO (17:36)
[2017-10-25] MEDS ORDERED: BUPR-93 PO (17:36)
== END 2017-10-25 01:30 | disposition left against medical advice (07) ==
LOC: EMS 23:21
DX: F10.229 Alcohol dependence with intoxication, unspecified (principal); J44.9 Chronic obstructive pulmonary disease, unspecified; F11.90 Opioid use, unspecified, uncomplicated; F17.210 Nicotine dependence, cigarettes, uncomplicated; Y90.9 Presence of alcohol in blood, level not specified; Z59.0 Homelessness
CPT/HCPCS: 82962; 99283

== ENCOUNTER 2017-10-25 16:24 | Inpatient (IN) | payer MEDICAID ==
[~2017-10-25] VITALS: Ht 188 cm; Wt 65.9 kg
[2017-10-25] MEDS ORDERED: HALOPERIDOL 5 MG TABLET PO PRN (17:00)
[2017-10-25] MEDS ORDERED: ZOLPIDEM TARTRATE 10 MG TABLET PO PRN (17:00)
[2017-10-25] MEDS ORDERED: LORazepam 1 MG TABLET PO PRN (17:00)
[2017-10-25 17:07] VITALS: BP 128/82
[2017-10-25] MEDS ORDERED: METH10 PO (17:36)
[2017-10-25] MEDS ORDERED: BUPR-93 PO (17:36)
[2017-10-25] MEDS ORDERED: FLUO-191 PO (17:36)
[2017-10-25] MEDS ORDERED: QUET300T2 PO (17:36)
[2017-10-26] MEDS ORDERED: -PHARMACY VACCINE NOTE- MISC ONE (04:30)
[2017-10-26 04:56] VITALS: BP 142/86
[2017-10-26 08:45] VITALS: BP 147/102
[2017-10-26] MEDS: FLUoxetine HCL 20 MG CAPSULE PO SCH (08:51)
[2017-10-26] MEDS: BuPROPion HCL XL 150 MG ER TABLET PO SCH (08:51)
[2017-10-26] MEDS: METHADONE HCL 10 MG TABLET PO SCH (09:56)
[2017-10-26] MEDS ORDERED: CloNIDine HCL 0.1 MG TABLET PO PRN (16:00)
[2017-10-26 19:33] LABS: APPEARANCE,URINE CLEAR (CLEAR); BILIRUBIN,URINE NEGATIVE (NEGATIVE); GLUCOSE, URINE (UA) NEGATIVE (NEGATIVE); KETONES,URINE NEGATIVE (NEGATIVE); LEUKOCYTE ESTERASE ,URINE NEGATIVE (NEGATIVE); NITRATE,URINE NEGATIVE (NEGATIVE); OCCULT BLOOD,URINE NEGATIVE (NEGATIVE); PROTEIN,URINE NEGATIVE (NEGATIVE)
[2017-10-26 19:37] LABS: AMPHET/METH SCREEN,URINE NEGATIVE (NEGATIVE); BARBITURATE SCREEN, URINE NEGATIVE (NEGATIVE); BENZODIAZEPINES SCREEN,URINE POSITIVE (NEGATIVE); CANNABINOID SCREEN,URINE NEGATIVE (NEGATIVE); COCAINE SCREEN,URINE NEGATIVE (NEGATIVE); METHADONE SCREEN, URINE NEGATIVE (NEGATIVE); OPIATE SCREEN,URINE NEGATIVE (NEGATIVE)
[2017-10-26 19:38] LABS: PHENCYCLIDINE SCREEN,URINE NEGATIVE (NEGATIVE)
[2017-10-26] MEDS: QUEtiapine FUMARATE 300 MG TABLET PO SCH (20:28)
[2017-10-26 22:19] VITALS: BP 138/96
[2017-10-26] MEDS ORDERED: LOPERAMIDE HCL 2 MG CAPSULE PO PRN (23:45)
[2017-10-26] MEDS ORDERED: MAG HYDROX/AL HYDROX/SIMETH ES 30 ML SUSPENSION UDCUP PO PRN (23:45)
[2017-10-26] MEDS ORDERED: MAGNESIUM HYDROXIDE SUSPENSION 30 ML UDCUP PO PRN (23:45)
[2017-10-26] MEDS ORDERED: PETROLATUM,WHITE 71 GM JELLY TP PRN (23:45)
[2017-10-26] MEDS ORDERED: ACETAMINOPHEN 325 MG TABLET PO PRN (23:45)
[2017-10-26] MEDS ORDERED: ALBUTEROL SULFATE HFA 90 MCG/PUFF 8 GM INHALER IH PRN (23:45)
[2017-10-26] MEDS ORDERED: BENZOCAINE/MENTHOL LOZENGE [8 LOZENGES/PACKET] MM PRN (23:45)
[2017-10-26] MEDS ORDERED: ONDANSETRON HCL 4 MG TABLET PO PRN (23:45)
[2017-10-26] MEDS ORDERED: BACITRACIN 28.4 GM OINTMENT TP PRN (23:45)
[2017-10-27] MEDS: METHADONE HCL 10 MG TABLET PO SCH (06:05)
[2017-10-27 08:30] VITALS: BP 120/67
[2017-10-27 08:55] LABS: BASOPHILS # (AUTO) 0.08 K/uL (0.00-0.20); BASOPHILS % (AUTO) 0.9 % (0.0-2.0); EOSINOPHILS # (AUTO) 0.11 K/uL (0.00-0.70); EOSINOPHILS % (AUTO) 1.24 % (1.0-6.0); HEMOGLOBIN 10.9 g/dL (13.5-17.5); LYMPHOCYTES # (AUTO) 1.5 K/uL (1.0-4.8); LYMPHOCYTES % (AUTO) 16.8 % (22.0-44.0); MEAN CORPUSCULAR HEMOGLOBIN 29.6 pg (26.0-34.0); MEAN CORPUSCULAR HGB CONC 32.9 G/dL (31.0-37.0); MEAN CORPUSCULAR VOLUME 90 fL (80-100); MONOCYTES # (AUTO) 0.6 K/uL (0.1-1.0); MONOCYTES % (AUTO) 6.3 % (2.0-9.0); NEUTROPHILS # (AUTO) 6.7 K/uL (1.8-7.7); NEUTROPHILS % (AUTO) 74.8 % (40.0-70.0); RED BLOOD CELL COUNT(AUTO) 3.66 MIL/uL (4.50-5.90)
[2017-10-27] MEDS: DOCUSATE SODIUM 100 MG CAPSULE PO SCH (09:03)
[2017-10-27] MEDS: OMEPRAZOLE 20 MG CAPSULE PO SCH (09:03)
[2017-10-27] MEDS: BuPROPion HCL XL 150 MG ER TABLET PO SCH (09:03)
[2017-10-27] MEDS: LEVOFLOXACIN 500 MG TABLET PO SCH (09:04)
[2017-10-27] MEDS: FLUoxetine HCL 20 MG CAPSULE PO SCH (09:04)
[2017-10-27 09:12] LABS: ALANINE AMINOTRANSFERASE 27 U/L (12-78); ALBUMIN 2.6 g/dL (3.4-5.0); ALKALINE PHOSPHATASE 109 U/L (46-116); ANION GAP 5 mmol/L (8-16); ASPARTATE AMINOTRANSFERASE 28 U/L (15-37); BILIRUBIN,TOTAL 0.4 mg/dL (0.1-1.0); CALCIUM, TOTAL 8.9 mg/dL (8.8-10.5); CARBON DIOXIDE 32 mmol/L (22-29); CHLORIDE 99 mmol/L (98-107); CREATININE 0.94 mg/dL (0.60-1.30); GLOMERULAR FILTR. RATE CALC > 60 mL/min (>60); GLUCOSE,RANDOM 123 mg/dL (70-110); POTASSIUM 4.2 mmol/L (3.5-5.1); SODIUM SERUM 136 mmol/L (136-145); TOTAL PROTEIN, SERUM 6.8 g/dL (6.4-8.2); UREA NITROGEN, BLOOD 16 mg/dL (7-18)
[2017-10-27 09:43] LABS: PLATELET COUNT (AUTO) 218 K/uL (150-450)
[2017-10-27 16:13] VITALS: BP 134/80
[2017-10-27] MEDS: QUEtiapine FUMARATE 300 MG TABLET PO SCH (21:35)
[2017-10-28] MEDS: METHADONE HCL 10 MG TABLET PO SCH (06:05)
[2017-10-28 09:23] VITALS: BP 114/75
[2017-10-28] MEDS: OMEPRAZOLE 20 MG CAPSULE PO SCH (09:43)
[2017-10-28] MEDS: BuPROPion HCL XL 150 MG ER TABLET PO SCH (09:43)
[2017-10-28] MEDS: LEVOFLOXACIN 500 MG TABLET PO SCH (09:43)
[2017-10-28] MEDS: FLUoxetine HCL 20 MG CAPSULE PO SCH (09:43)
[2017-10-28] MEDS: DOCUSATE SODIUM 100 MG CAPSULE PO SCH (09:43)
[2017-10-28] MEDS: IBUPROFEN 600 MG TABLET PO PRN (09:46)
[2017-10-28 16:58] VITALS: BP 117/76
[2017-10-28] MEDS: QUEtiapine FUMARATE 300 MG TABLET PO SCH (20:05)
[2017-10-29 02:30] VITALS: BP 105/69
[2017-10-29] MEDS: METHADONE HCL 10 MG TABLET PO SCH (06:05)
[2017-10-29 08:51] VITALS: BP 129/69
[2017-10-29] MEDS: BuPROPion HCL XL 150 MG ER TABLET PO SCH (08:56)
[2017-10-29] MEDS: OMEPRAZOLE 20 MG CAPSULE PO SCH (08:57)
[2017-10-29] MEDS: DOCUSATE SODIUM 100 MG CAPSULE PO SCH (08:57)
[2017-10-29] MEDS: FLUoxetine HCL 20 MG CAPSULE PO SCH (08:57)
[2017-10-29] MEDS: LEVOFLOXACIN 500 MG TABLET PO SCH (08:57)
[2017-10-29 17:27] VITALS: BP 122/72
[2017-10-29] MEDS: QUEtiapine FUMARATE 300 MG TABLET PO SCH (20:05)
[2017-10-30] MEDS: METHADONE HCL 10 MG TABLET PO SCH (06:54)
[2017-10-30] MEDS: BuPROPion HCL XL 150 MG ER TABLET PO SCH (09:04)
[2017-10-30] MEDS: OMEPRAZOLE 20 MG CAPSULE PO SCH (09:05)
[2017-10-30] MEDS: LEVOFLOXACIN 500 MG TABLET PO SCH (09:05)
[2017-10-30] MEDS: DOCUSATE SODIUM 100 MG CAPSULE PO SCH (09:05)
[2017-10-30] MEDS: FLUoxetine HCL 20 MG CAPSULE PO SCH (09:05)
[2017-10-30 09:35] VITALS: BP 110/76
[2017-10-30 17:33] VITALS: BP 125/89
[2017-10-30] MEDS: QUEtiapine FUMARATE 300 MG TABLET PO SCH (20:30)
[2017-10-31 05:41] VITALS: BP 155/75
[2017-10-31] MEDS: METHADONE HCL 10 MG TABLET PO SCH (06:28)
[2017-10-31 08:46] VITALS: BP 105/61
[2017-10-31] MEDS: FLUoxetine HCL 20 MG CAPSULE PO SCH (09:03)
[2017-10-31] MEDS: LEVOFLOXACIN 500 MG TABLET PO SCH (09:03)
[2017-10-31] MEDS: DOCUSATE SODIUM 100 MG CAPSULE PO SCH (09:03)
[2017-10-31] MEDS: OMEPRAZOLE 20 MG CAPSULE PO SCH (09:03)
[2017-10-31] MEDS: BuPROPion HCL XL 150 MG ER TABLET PO SCH (09:04)
[2017-10-31] MEDS: IBUPROFEN 600 MG TABLET PO PRN (11:16)
[2017-10-31] MEDS ORDERED: LEVO500 PO (12:45)
[2017-10-31] MEDS ORDERED: DSS100 PO (12:45)
[2017-10-31] MEDS ORDERED: OMEP20 PO (12:46)
== END 2017-10-31 12:40 | disposition home or self-care (01) | DRG 750 ==
LOC: EDSTATUS 16:24 → 3EI 10-26 04:02
PROVIDERS: ADMIT Internal Medicine; ATTEND Psychiatry & Neurology Psychiatry
DX: F25.0 Schizoaffective disorder, bipolar type (principal); J18.9 Pneumonia, unspecified organism; R45.851 Suicidal ideations; F11.20 Opioid dependence, uncomplicated; J44.0 Chronic obstructive pulmonary disease with (acute) lower respiratory infection; Z59.0 Homelessness; F32.9 Major depressive disorder, single episode, unspecified; F41.9 Anxiety disorder, unspecified; Z81.8 Family history of other mental and behavioral disorders; W19.XXXA Unspecified fall, initial encounter; M19.90 Unspecified osteoarthritis, unspecified site; B18.2 Chronic viral hepatitis C; I12.9 Hypertensive chronic kidney disease with stage 1 through stage 4 chronic kidney disease, or unspecified chronic kidney disease; N18.9 Chronic kidney disease, unspecified; F17.200 Nicotine dependence, unspecified, uncomplicated; Z72.89 Other problems related to lifestyle; Z71.41 Alcohol abuse counseling and surveillance of alcoholic; E03.9 Hypothyroidism, unspecified; G47.00 Insomnia, unspecified

== ENCOUNTER 2017-11-16 20:14 | Inpatient (IN) | payer MEDICAID ==
[~2017-11-16] VITALS: Ht 188 cm; Wt 65.5 kg
[~2017-11-16 20:14] MED LIST changes: +LEVO500 PO; -LEVO50TA11 PO; -MULT-248 PO; -TEMO15C TP
[2017-11-16 21:22] VITALS: BP 120/77
[2017-11-16 21:30] VITALS: BP 132/61
[2017-11-16] MEDS ORDERED: ACETAMINOPHEN 325 MG TABLET PO PRN (21:30)
[2017-11-16] MEDS: QUEtiapine FUMARATE 300 MG TABLET PO SCH (21:57)
[2017-11-16] MEDS: LORazepam 2 MG TABLET PO PRN (21:57)
[2017-11-16] MEDS: IBUPROFEN 600 MG TABLET PO PRN (21:57)
[2017-11-16] MEDS: ZOLPIDEM TARTRATE 10 MG TABLET PO PRN (21:57)
[2017-11-16] MEDS ORDERED: PNEUMOCOCCAL VACCINE POLYVALENT 0.5 ML VIAL [PPSV23] IM ONE (22:00)
[2017-11-16 22:30] VITALS: BP 128/65
[2017-11-17 06:36] VITALS: BP 130/70
[2017-11-17 08:00] VITALS: BP 107/72
[2017-11-17 08:28] LABS: BASOPHILS # (AUTO) 0.02 K/uL (0.00-0.20); BASOPHILS % (AUTO) 0.5 % (0.0-2.0); EOSINOPHILS # (AUTO) 0.31 K/uL (0.00-0.70); HEMATOCRIT 33.1 % (41-53); HEMOGLOBIN 10.9 g/dL (13.5-17.5); LYMPHOCYTES # (AUTO) 1.7 K/uL (1.0-4.8); LYMPHOCYTES % (AUTO) 35.7 % (22.0-44.0); MEAN CORPUSCULAR HEMOGLOBIN 29.1 pg (26.0-34.0); MEAN CORPUSCULAR HGB CONC 32.9 G/dL (31.0-37.0); MEAN CORPUSCULAR VOLUME 89 fL (80-100); MONOCYTES # (AUTO) 0.7 K/uL (0.1-1.0); MONOCYTES % (AUTO) 14.4 % (2.0-9.0); NEUTROPHILS % (AUTO) 42.9 % (40.0-70.0); PLATELET COUNT (AUTO) 283 K/uL (150-450); RED BLOOD CELL COUNT(AUTO) 3.74 MIL/uL (4.50-5.90); RED CELL DISTRIBUTION WIDTH 17.4 % (11.5-14.5)
[2017-11-17] MEDS: DOCUSATE SODIUM 100 MG CAPSULE PO SCH (09:00)
[2017-11-17 09:03] LABS: ALANINE AMINOTRANSFERASE 32 U/L (12-78); ALBUMIN 2.9 g/dL (3.4-5.0); ALKALINE PHOSPHATASE 101 U/L (46-116); ANION GAP 6 mmol/L (8-16); ASPARTATE AMINOTRANSFERASE 34 U/L (15-37); BILIRUBIN,TOTAL 0.2 mg/dL (0.1-1.0); CALCIUM, TOTAL 8.5 mg/dL (8.8-10.5); CARBON DIOXIDE 28 mmol/L (22-29); CHLORIDE 101 mmol/L (98-107); CHOL/HDL RATIO 2.1 (4.2-7.3); CHOLESTEROL 121 mg/dL (131-200); CREATININE 0.84 mg/dL (0.60-1.30); FREE T4 (FREE THYROXINE) 0.82 ng/dL (0.76-1.46); GLOMERULAR FILTR. RATE CALC > 60 mL/min (>60); GLUCOSE,RANDOM 85 mg/dL (70-110); HDL CHOLESTEROL 58 mg/dL (40-60); LDL CHOL (CALC.) 47 mg/dL (0-130); POTASSIUM 3.8 mmol/L (3.5-5.1); SODIUM SERUM 135 mmol/L (136-145); THYROID STIMULATING HORMONE 9.24 uIU/mL (0.36-3.74); TOTAL PROTEIN, SERUM 6.8 g/dL (6.4-8.2); TRIGLYCERIDES 81 mg/dL (15-150); UREA NITROGEN, BLOOD 21 mg/dL (7-18)
[2017-11-17] MEDS ORDERED: ALBUTEROL SULFATE HFA 90 MCG/PUFF 8 GM INHALER IH PRN (09:30)
[2017-11-17 10:08] LABS: HEMOGLOBIN A1C 5.5 % (4.5-6.2)
[2017-11-17] MEDS: BuPROPion HCL XL 150 MG ER TABLET PO SCH (10:13)
[2017-11-17] MEDS: LORazepam 2 MG TABLET PO PRN ×2 (10:14→20:17)
[2017-11-17] MEDS: FLUoxetine HCL 20 MG CAPSULE PO SCH (10:14)
[2017-11-17] MEDS: OMEPRAZOLE 20 MG CAPSULE PO SCH (10:14)
[2017-11-17 10:43] LABS: PLATELET MORPHOLOGY COMMENT NORMAL
[2017-11-17] MEDS: METHADONE HCL 10 MG TABLET PO SCH (10:56)
[2017-11-17 12:22] VITALS: BP 100/63
[2017-11-17 13:40] VITALS: BP 117/61
[2017-11-17] MEDS: IBUPROFEN 600 MG TABLET PO PRN (13:46)
[2017-11-17 16:30] VITALS: BP 115/75
[2017-11-17] MEDS: QUEtiapine FUMARATE 300 MG TABLET PO SCH (20:17)
[2017-11-17 20:30] VITALS: BP 124/65
[2017-11-17] MEDS: ZOLPIDEM TARTRATE 10 MG TABLET PO PRN (20:33)
[2017-11-18] MEDS: LEVOTHYROXINE SODIUM 50 MCG TABLET PO SCH (06:30)
[2017-11-18 08:00] VITALS: BP 108/68
[2017-11-18] MEDS: FLUoxetine HCL 20 MG CAPSULE PO SCH (08:31)
[2017-11-18] MEDS: BuPROPion HCL XL 150 MG ER TABLET PO SCH (08:31)
[2017-11-18] MEDS: OMEPRAZOLE 20 MG CAPSULE PO SCH (08:31)
[2017-11-18] MEDS: LORazepam 2 MG TABLET PO PRN (08:31)
[2017-11-18] MEDS: DOCUSATE SODIUM 100 MG CAPSULE PO SCH (08:31)
[2017-11-18] MEDS: METHADONE HCL 10 MG TABLET PO SCH (08:33)
[2017-11-18 16:45] VITALS: BP 129/76
[2017-11-18] MEDS: QUEtiapine FUMARATE 300 MG TABLET PO SCH (20:06)
[2017-11-19 06:13] VITALS: BP 122/79
[2017-11-19] MEDS: LEVOTHYROXINE SODIUM 50 MCG TABLET PO SCH (06:27)
[2017-11-19 08:15] VITALS: BP 118/74
[2017-11-19] MEDS: FLUoxetine HCL 20 MG CAPSULE PO SCH (08:30)
[2017-11-19] MEDS: OMEPRAZOLE 20 MG CAPSULE PO SCH (08:30)
[2017-11-19] MEDS: DOCUSATE SODIUM 100 MG CAPSULE PO SCH (08:30)
[2017-11-19] MEDS: BuPROPion HCL XL 150 MG ER TABLET PO SCH (08:30)
[2017-11-19] MEDS: METHADONE HCL 10 MG TABLET PO SCH (08:31)
[2017-11-19] MEDS: MUPIROCIN CALCIUM 2% 22 GM OINTMENT NASAL SCH ×2 (08:32→16:45)
[2017-11-19 16:00] VITALS: BP 121/72
[2017-11-19] MEDS: QUEtiapine FUMARATE 300 MG TABLET PO SCH (20:58)
[2017-11-20] MEDS: LEVOTHYROXINE SODIUM 50 MCG TABLET PO SCH (06:27)
[2017-11-20 06:34] VITALS: BP 145/98
[2017-11-20] MEDS: BuPROPion HCL XL 150 MG ER TABLET PO SCH (09:15)
[2017-11-20] MEDS: DOCUSATE SODIUM 100 MG CAPSULE PO SCH (09:15)
[2017-11-20] MEDS: MUPIROCIN CALCIUM 2% 22 GM OINTMENT NASAL SCH ×2 (09:15→16:37)
[2017-11-20] MEDS: FLUoxetine HCL 20 MG CAPSULE PO SCH (09:15)
[2017-11-20] MEDS: OMEPRAZOLE 20 MG CAPSULE PO SCH (09:15)
[2017-11-20] MEDS: METHADONE HCL 10 MG TABLET PO SCH (09:15)
[2017-11-20] MEDS: HALOPERIDOL 5 MG TABLET PO PRN (09:18)
[2017-11-20] MEDS: LORazepam 2 MG TABLET PO PRN (09:18)
[2017-11-20] MEDS: IBUPROFEN 600 MG TABLET PO PRN (09:18)
[2017-11-20 09:20] VITALS: BP 129/85
[2017-11-20 17:00] VITALS: BP 134/82
[2017-11-20] MEDS: QUEtiapine FUMARATE 300 MG TABLET PO SCH (20:11)
[2017-11-21 06:13] VITALS: BP 130/94
[2017-11-21] MEDS: LEVOTHYROXINE SODIUM 50 MCG TABLET PO SCH (06:21)
[2017-11-21 06:38] LABS: FREE T4 (FREE THYROXINE) 0.76 ng/dL (0.76-1.46); THYROID STIMULATING HORMONE 9.49 uIU/mL (0.36-3.74)
[2017-11-21 08:00] VITALS: BP 141/88
[2017-11-21] MEDS: DOCUSATE SODIUM 100 MG CAPSULE PO SCH (08:51)
[2017-11-21] MEDS: METHADONE HCL 10 MG TABLET PO SCH (08:52)
[2017-11-21] MEDS: OMEPRAZOLE 20 MG CAPSULE PO SCH (08:52)
[2017-11-21] MEDS: FLUoxetine HCL 20 MG CAPSULE PO SCH (08:52)
[2017-11-21] MEDS: BuPROPion HCL XL 150 MG ER TABLET PO SCH (08:52)
[2017-11-21] MEDS: MUPIROCIN CALCIUM 2% 22 GM OINTMENT NASAL SCH ×2 (09:00→16:07)
[2017-11-21] MEDS: LORazepam 2 MG TABLET PO PRN ×2 (16:06→23:44)
[2017-11-21] MEDS: HALOPERIDOL 5 MG TABLET PO PRN (16:06)
[2017-11-21 18:30] VITALS: BP 125/85
[2017-11-21] MEDS: QUEtiapine FUMARATE 300 MG TABLET PO SCH (20:05)
[2017-11-21 23:40] VITALS: BP 151/107
[2017-11-22] MEDS: ONDANSETRON HCL 4 MG/2 ML VIAL IM PRN ×2 (01:29→05:43)
[2017-11-22] MEDS: ZOLPIDEM TARTRATE 10 MG TABLET PO PRN (01:43)
[2017-11-22] MEDS: HALOPERIDOL 5 MG TABLET PO PRN ×2 (01:43→20:18)
[2017-11-22 03:00] VITALS: BP 158/108
[2017-11-22] MEDS: LEVOTHYROXINE SODIUM 50 MCG TABLET PO SCH (07:01)
[2017-11-22] MEDS: METHADONE HCL 10 MG TABLET PO SCH (08:38)
[2017-11-22] MEDS: BuPROPion HCL XL 150 MG ER TABLET PO SCH (08:38)
[2017-11-22] MEDS: DOCUSATE SODIUM 100 MG CAPSULE PO SCH (08:38)
[2017-11-22] MEDS: FLUoxetine HCL 20 MG CAPSULE PO SCH (08:39)
[2017-11-22] MEDS: OMEPRAZOLE 20 MG CAPSULE PO SCH (08:39)
[2017-11-22] MEDS: LORazepam 2 MG TABLET PO PRN ×2 (08:39→20:17)
[2017-11-22 09:40] VITALS: BP 166/89
[2017-11-22] MEDS: METOCLOPRAMIDE HCL 5 MG TABLET PO PRN ×2 (10:30→18:30)
[2017-11-22] MEDS: MUPIROCIN CALCIUM 2% 22 GM OINTMENT NASAL SCH ×2 (11:14→16:11)
[2017-11-22 16:33] VITALS: BP 131/84
[2017-11-22] MEDS: QUEtiapine FUMARATE 300 MG TABLET PO SCH (20:18)
[2017-11-23 05:53] VITALS: BP 149/81
[2017-11-23] MEDS: METOCLOPRAMIDE HCL 5 MG TABLET PO PRN ×2 (06:28→16:26)
[2017-11-23] MEDS: LEVOTHYROXINE SODIUM 50 MCG TABLET PO SCH (06:52)
[2017-11-23 08:44] VITALS: BP 159/90
[2017-11-23] MEDS: FLUoxetine HCL 20 MG CAPSULE PO SCH (08:56)
[2017-11-23] MEDS: OMEPRAZOLE 20 MG CAPSULE PO SCH (08:56)
[2017-11-23] MEDS: DOCUSATE SODIUM 100 MG CAPSULE PO SCH (08:57)
[2017-11-23] MEDS: BuPROPion HCL XL 150 MG ER TABLET PO SCH (08:58)
[2017-11-23] MEDS: METHADONE HCL 10 MG TABLET PO SCH (09:04)
[2017-11-23] MEDS: MUPIROCIN CALCIUM 2% 22 GM OINTMENT NASAL SCH ×2 (09:05→16:26)
[2017-11-23] MEDS: HALOPERIDOL 5 MG TABLET PO PRN (16:25)
[2017-11-23] MEDS: LORazepam 2 MG TABLET PO PRN (16:26)
[2017-11-23 17:00] VITALS: BP 120/82
[2017-11-23] MEDS: ZOLPIDEM TARTRATE 10 MG TABLET PO PRN (20:05)
[2017-11-23] MEDS: QUEtiapine FUMARATE 300 MG TABLET PO SCH (20:05)
[2017-11-24] MEDS: LEVOTHYROXINE SODIUM 50 MCG TABLET PO SCH (06:56)
[2017-11-24] MEDS: METHADONE HCL 10 MG TABLET PO SCH (08:53)
[2017-11-24] MEDS: BuPROPion HCL XL 150 MG ER TABLET PO SCH (08:53)
[2017-11-24] MEDS: OMEPRAZOLE 20 MG CAPSULE PO SCH (08:54)
[2017-11-24] MEDS: DOCUSATE SODIUM 100 MG CAPSULE PO SCH (08:54)
[2017-11-24] MEDS: FLUoxetine HCL 20 MG CAPSULE PO SCH (08:54)
[2017-11-24] MEDS ORDERED: LEVO50 PO (09:30)
[2017-11-24 10:17] VITALS: BP 133/68
== END 2017-11-24 12:30 | disposition home or self-care (01) | DRG 750 ==
LOC: B3A 20:38 → EDSTATUS 21:19 → 3EI 11-19 16:50
PROVIDERS: ADMIT Psychiatry & Neurology Psychiatry; ATTEND Psychiatry & Neurology Psychiatry
PROC: 3E0234Z Introduction of Serum, Toxoid and Vaccine into Muscle, Percutaneous Approach (ICD-10-PCS; principal; 2017-11-16)
DX: F25.0 Schizoaffective disorder, bipolar type (principal); E46 Unspecified protein-calorie malnutrition; R45.851 Suicidal ideations; F29 Unspecified psychosis not due to a substance or known physiological condition; F11.20 Opioid dependence, uncomplicated; J44.9 Chronic obstructive pulmonary disease, unspecified; F19.90 Other psychoactive substance use, unspecified, uncomplicated; K21.9 Gastro-esophageal reflux disease without esophagitis; F41.9 Anxiety disorder, unspecified; E03.9 Hypothyroidism, unspecified; K59.00 Constipation, unspecified; D64.9 Anemia, unspecified; B19.20 Unspecified viral hepatitis C without hepatic coma; Z68.1 Body mass index [BMI] 19.9 or less, adult; Z91.19 Patient's noncompliance with other medical treatment and regimen; Z81.8 Family history of other mental and behavioral disorders; Z91.5 Personal history of self-harm; Z59.0 Homelessness; Z23 Encounter for immunization
CPT/HCPCS: 83036; 84439; 84443; 87081; 99285; J2405

== ENCOUNTER 2017-12-12 02:31 | Emergency (ER) | payer MEDICAID, OTHER ==
[~2017-12-12] VITALS: Ht 185.4 cm; Wt 66.3 kg
[~2017-12-12 02:31] MED LIST changes: +LEVO50 PO; -LEVO500 PO
[2017-12-12 03:37] LABS: BASOPHILS % (AUTO) 0.7 % (0.0-2.0); EOSINOPHILS % (AUTO) 4.1 % (1.0-6.0); HEMATOCRIT 38.4 % (41-53); HEMOGLOBIN 12.4 g/dL (13.5-17.5); LYMPHOCYTES # (AUTO) 1.7 K/uL (1.0-4.8); LYMPHOCYTES % (AUTO) 22.4 % (22.0-44.0); MEAN CORPUSCULAR HEMOGLOBIN 28.8 pg (26.0-34.0); MEAN CORPUSCULAR HGB CONC 32.3 G/dL (31.0-37.0); MEAN CORPUSCULAR VOLUME 89 fL (80-100); MONOCYTES # (AUTO) 0.8 K/uL (0.1-1.0); MONOCYTES % (AUTO) 10.5 % (2.0-9.0); NEUTROPHILS # (AUTO) 4.6 K/uL (1.8-7.7); NEUTROPHILS % (AUTO) 62.3 % (40.0-70.0); PLATELET COUNT (AUTO) 289 K/uL (150-450); RED BLOOD CELL COUNT(AUTO) 4.29 MIL/uL (4.50-5.90); RED CELL DISTRIBUTION WIDTH 16.3 % (11.5-14.5)
[2017-12-12 03:38] LABS: GLUCOSE,POINT OF CARE 72 MG/DL (70-110)
[2017-12-12 03:40] LABS: ANION GAP 8 mmol/L (8-16); CALCIUM, TOTAL 8.9 mg/dL (8.8-10.5); CARBON DIOXIDE 29 mmol/L (22-29); CHLORIDE 102 mmol/L (98-107); GLOMERULAR FILTR. RATE CALC > 60 mL/min (>60); GLUCOSE,RANDOM 76 mg/dL (70-110); POTASSIUM 3.9 mmol/L (3.5-5.1); SODIUM SERUM 139 mmol/L (136-145); UREA NITROGEN, BLOOD 14 mg/dL (7-18)
[2017-12-12 03:46] LABS: PROTHROMBIN TIME 10.1 SEC (9.4-11.6)
[2017-12-12 04:06] LABS: ALANINE AMINOTRANSFERASE 16 U/L (12-78); ALBUMIN 3.6 g/dL (3.4-5.0); ALKALINE PHOSPHATASE 128 U/L (46-116); ASPARTATE AMINOTRANSFERASE 25 U/L (15-37); BILIRUBIN,TOTAL 0.3 mg/dL (0.1-1.0); CREATINE KINASE, TOTAL 171 U/L (39-308); TOTAL PROTEIN, SERUM 7.5 g/dL (6.4-8.2)
[2017-12-12 04:26] LABS: B-TYPE NATRIURETIC PEPTIDE 20 pg/mL (0-100)
[2017-12-12 04:48] LABS: AMPHET/METH SCREEN,URINE NEGATIVE (NEGATIVE); BARBITURATE SCREEN, URINE NEGATIVE (NEGATIVE); BENZODIAZEPINES SCREEN,URINE POSITIVE (NEGATIVE); CANNABINOID SCREEN,URINE NEGATIVE (NEGATIVE); COCAINE SCREEN,URINE POSITIVE (NEGATIVE); METHADONE SCREEN, URINE POSITIVE (NEGATIVE); OPIATE SCREEN,URINE NEGATIVE (NEGATIVE)
[2017-12-12 04:51] LABS: APPEARANCE,URINE CLEAR (CLEAR); BILIRUBIN,URINE NEGATIVE (NEGATIVE); GLUCOSE, URINE (UA) NEGATIVE (NEGATIVE); KETONES,URINE NEGATIVE (NEGATIVE); LEUKOCYTE ESTERASE ,URINE NEGATIVE (NEGATIVE); NITRATE,URINE NEGATIVE (NEGATIVE); OCCULT BLOOD,URINE NEGATIVE (NEGATIVE); PROTEIN,URINE NEGATIVE (NEGATIVE)
[2017-12-12 05:01] LABS: PHENCYCLIDINE SCREEN,URINE NEGATIVE (NEGATIVE)
[2017-12-12 06:34] VITALS: BP 130/71
== END 2017-12-12 07:03 | disposition left against medical advice (07) ==
LOC: EMS 02:32
DX: S00.211A Abrasion of right eyelid and periocular area, initial encounter (principal); R07.9 Chest pain, unspecified; F32.9 Major depressive disorder, single episode, unspecified; J44.9 Chronic obstructive pulmonary disease, unspecified; F17.210 Nicotine dependence, cigarettes, uncomplicated; F11.10 Opioid abuse, uncomplicated; W19.XXXA Unspecified fall, initial encounter; Y93.89 Activity, other specified; Y92.89 Other specified places as the place of occurrence of the external cause; Y99.8 Other external cause status; Z59.0 Homelessness; Z79.899 Other long term (current) drug therapy
CPT/HCPCS: 36415; 51702; 70450; 71045; 72125; 80053; 80307; 81003; 82550; 82553; 82962; 83880; 84484; 85025; 85610; 85730; 93005; 99285; G0480

== ENCOUNTER 2018-01-04 11:33 | Inpatient (IN) | payer MEDICAID ==
[~2018-01-04] VITALS: Ht 188 cm; Wt 70.3 kg
[2018-01-04 12:14] VITALS: BP 153/91
[2018-01-04] MEDS ORDERED: ZOLPIDEM TARTRATE 10 MG TABLET PO PRN (12:30)
[2018-01-04] MEDS: LORazepam 2 MG TABLET PO PRN (14:27)
[2018-01-04] MEDS: HALOPERIDOL 5 MG TABLET PO PRN (15:52)
[2018-01-04 16:05] VITALS: BP 168/100
[2018-01-04] MEDS ORDERED: CloNIDine HCL 0.1 MG TABLET PO PRN (20:45)
[2018-01-04 20:46] VITALS: BP 162/89
[2018-01-04] MEDS: QUEtiapine FUMARATE 300 MG TABLET PO SCH (20:56)
[2018-01-04 21:47] VITALS: BP 131/78
[2018-01-05] VITALS (7 sets, daily range): BP systolic 118–151; BP diastolic 75–95
[2018-01-05] MEDS: HALOPERIDOL 5 MG TABLET PO PRN ×3 (03:35→16:33)
[2018-01-05] MEDS: LORazepam 2 MG TABLET PO PRN ×4 (03:35→20:42)
[2018-01-05] MEDS: LEVOTHYROXINE SODIUM 50 MCG TABLET PO SCH (06:53)
[2018-01-05] MEDS: DOCUSATE SODIUM 100 MG CAPSULE PO SCH (08:12)
[2018-01-05] MEDS: BuPROPion HCL XL 150 MG ER TABLET PO SCH (08:12)
[2018-01-05] MEDS: FLUoxetine HCL 20 MG CAPSULE PO SCH (08:12)
[2018-01-05] MEDS: OMEPRAZOLE 20 MG CAPSULE PO SCH (08:12)
[2018-01-05 08:18] LABS: BASOPHILS % (AUTO) 0.8 % (0.0-2.0); EOSINOPHILS % (AUTO) 3.3 % (1.0-6.0); HEMATOCRIT 39.2 % (41-53); HEMOGLOBIN 12.8 g/dL (13.5-17.5); LYMPHOCYTES # (AUTO) 1.8 K/uL (1.0-4.8); LYMPHOCYTES % (AUTO) 28.3 % (22.0-44.0); MEAN CORPUSCULAR HEMOGLOBIN 29.2 pg (26.0-34.0); MEAN CORPUSCULAR HGB CONC 32.5 G/dL (31.0-37.0); MEAN CORPUSCULAR VOLUME 90 fL (80-100); MONOCYTES # (AUTO) 0.7 K/uL (0.1-1.0); MONOCYTES % (AUTO) 10.2 % (2.0-9.0); NEUTROPHILS # (AUTO) 3.7 K/uL (1.8-7.7); NEUTROPHILS % (AUTO) 57.4 % (40.0-70.0); PLATELET COUNT (AUTO) 273 K/uL (150-450); RED BLOOD CELL COUNT(AUTO) 4.37 MIL/uL (4.50-5.90); RED CELL DISTRIBUTION WIDTH 17.3 % (11.5-14.5)
[2018-01-05 08:29] LABS: HEMOGLOBIN A1C 5.2 % (4.5-6.2)
[2018-01-05 09:02] LABS: ALANINE AMINOTRANSFERASE 14 U/L (12-78); ALKALINE PHOSPHATASE 119 U/L (46-116); ANION GAP 10 mmol/L (8-16); ASPARTATE AMINOTRANSFERASE 15 U/L (15-37); BILIRUBIN,TOTAL 0.1 mg/dL (0.1-1.0); CALCIUM, TOTAL 9.2 mg/dL (8.8-10.5); CARBON DIOXIDE 24 mmol/L (22-29); CHLORIDE 105 mmol/L (98-107); CHOL/HDL RATIO 1.8 (4.2-7.3); CHOLESTEROL 174 mg/dL (131-200); CREATININE 0.84 mg/dL (0.60-1.30); FREE T4 (FREE THYROXINE) 0.68 ng/dL (0.76-1.46); GLOMERULAR FILTR. RATE CALC > 60 mL/min (>60); GLUCOSE,RANDOM 91 mg/dL (70-110); HDL CHOLESTEROL 95 mg/dL (40-60); LDL CHOL (CALC.) 68 mg/dL (0-130); POTASSIUM 4.5 mmol/L (3.5-5.1); SODIUM SERUM 139 mmol/L (136-145); THYROID STIMULATING HORMONE 12.29 uIU/mL (0.36-3.74); TOTAL PROTEIN, SERUM 6.2 g/dL (6.4-8.2); TRIGLYCERIDES 53 mg/dL (15-150); UREA NITROGEN, BLOOD 21 mg/dL (7-18)
[2018-01-05 10:37] LABS: AMPHET/METH SCREEN,URINE NEGATIVE (NEGATIVE); BARBITURATE SCREEN, URINE NEGATIVE (NEGATIVE); BENZODIAZEPINES SCREEN,URINE NEGATIVE (NEGATIVE); CANNABINOID SCREEN,URINE NEGATIVE (NEGATIVE); COCAINE SCREEN,URINE NEGATIVE (NEGATIVE); METHADONE SCREEN, URINE POSITIVE (NEGATIVE); OPIATE SCREEN,URINE NEGATIVE (NEGATIVE); PHENCYCLIDINE SCREEN,URINE NEGATIVE (NEGATIVE)
[2018-01-05 11:01] LABS: APPEARANCE,URINE CLEAR (CLEAR); BILIRUBIN,URINE NEGATIVE (NEGATIVE); GLUCOSE, URINE (UA) NEGATIVE (NEGATIVE); KETONES,URINE NEGATIVE (NEGATIVE); LEUKOCYTE ESTERASE ,URINE NEGATIVE (NEGATIVE); NITRATE,URINE NEGATIVE (NEGATIVE); OCCULT BLOOD,URINE NEGATIVE (NEGATIVE); PH,URINE 7.5 (5.0-8.0); PROTEIN,URINE NEGATIVE (NEGATIVE)
[2018-01-05] MEDS: METHADONE HCL 10 MG TABLET PO SCH (18:25)
[2018-01-05] MEDS: QUEtiapine FUMARATE 300 MG TABLET PO SCH (20:07)
[2018-01-06] VITALS (8 sets, daily range): BP systolic 127–140; BP diastolic 67–88
[2018-01-06] MEDS: LEVOTHYROXINE SODIUM 50 MCG TABLET PO SCH (06:29)
[2018-01-06] MEDS: METHADONE HCL 10 MG TABLET PO SCH (08:04)
[2018-01-06] MEDS: DOCUSATE SODIUM 100 MG CAPSULE PO SCH (08:04)
[2018-01-06] MEDS: FLUoxetine HCL 20 MG CAPSULE PO SCH (08:04)
[2018-01-06] MEDS: OMEPRAZOLE 20 MG CAPSULE PO SCH (08:04)
[2018-01-06] MEDS: BuPROPion HCL XL 150 MG ER TABLET PO SCH (08:04)
[2018-01-06] MEDS ORDERED: ALBUTEROL SULFATE HFA 90 MCG/PUFF 8 GM INHALER IH PRN (09:15)
[2018-01-06] MEDS: LORazepam 2 MG TABLET PO PRN ×2 (16:23→20:29)
[2018-01-06] MEDS: MUPIROCIN CALCIUM 2% 22 GM OINTMENT NASAL SCH (16:23)
[2018-01-06] MEDS: HALOPERIDOL 5 MG TABLET PO PRN ×2 (16:25→20:29)
[2018-01-06] MEDS: CLOTRIMAZOLE 1% 15 GM CREAM TP SCH (17:00)
[2018-01-06] MEDS: QUEtiapine FUMARATE 300 MG TABLET PO SCH (20:03)
[2018-01-07 05:00] VITALS: BP 136/90
[2018-01-07] MEDS: LORazepam 2 MG TABLET PO PRN (05:07)
[2018-01-07] MEDS: LEVOTHYROXINE SODIUM 50 MCG TABLET PO SCH (06:34)
[2018-01-07] MEDS: FLUoxetine HCL 20 MG CAPSULE PO SCH (08:22)
[2018-01-07] MEDS: BuPROPion HCL XL 150 MG ER TABLET PO SCH (08:22)
[2018-01-07] MEDS: DOCUSATE SODIUM 100 MG CAPSULE PO SCH (08:23)
[2018-01-07] MEDS: OMEPRAZOLE 20 MG CAPSULE PO SCH (08:23)
[2018-01-07] MEDS: MUPIROCIN CALCIUM 2% 22 GM OINTMENT NASAL SCH (08:24)
[2018-01-07] MEDS: CLOTRIMAZOLE 1% 15 GM CREAM TP SCH (08:24)
[2018-01-07] MEDS ORDERED: METHADONE HCL 10 MG TABLET PO SCH (09:00)
== END 2018-01-07 10:10 | disposition home or self-care (01) | DRG 750 ==
LOC: B2S 12:32
PROVIDERS: ADMIT Psychiatry & Neurology Psychiatry; ATTEND Psychiatry & Neurology Psychiatry
DX: F25.0 Schizoaffective disorder, bipolar type (principal); R45.851 Suicidal ideations; Z59.0 Homelessness; B19.20 Unspecified viral hepatitis C without hepatic coma; D64.9 Anemia, unspecified; E03.9 Hypothyroidism, unspecified; F19.90 Other psychoactive substance use, unspecified, uncomplicated; F41.9 Anxiety disorder, unspecified; J44.9 Chronic obstructive pulmonary disease, unspecified; K21.9 Gastro-esophageal reflux disease without esophagitis; K59.00 Constipation, unspecified; Z91.5 Personal history of self-harm; Z87.891 Personal history of nicotine dependence; Z81.8 Family history of other mental and behavioral disorders; Z82.49 Family history of ischemic heart disease and other diseases of the circulatory system
CPT/HCPCS: 80307; 83036; 84439; 84443; 87081

== ENCOUNTER 2018-03-15 21:30 | Inpatient (IN) | payer MEDICAID ==
[~2018-03-15] VITALS: Ht 188 cm; Wt 71.7 kg
[~2018-03-15 21:30] MED LIST changes: -DSS100 PO; -OMEP20 PO
[2018-03-15] MEDS ORDERED: ZOLPIDEM TARTRATE 10 MG TABLET PO PRN (21:45)
[2018-03-15] MEDS ORDERED: LORazepam 2 MG TABLET PO PRN (21:45)
[2018-03-15 22:09] VITALS: BP 119/64
[2018-03-15] MEDS ORDERED: -PHARMACY VACCINE NOTE- MISC ONE (22:30)
[2018-03-16 00:07] VITALS: BP 134/80
[2018-03-16] MEDS ORDERED: BACITRACIN 28.4 GM OINTMENT TP PRN (00:30)
[2018-03-16 07:56] LABS: BASOPHILS % (AUTO) 0.6 % (0.0-2.0); EOSINOPHILS % (AUTO) 2.2 % (1.0-6.0); HEMATOCRIT 35.6 % (41-53); LYMPHOCYTES # (AUTO) 2.2 K/uL (1.0-4.8); LYMPHOCYTES % (AUTO) 20.5 % (22.0-44.0); MEAN CORPUSCULAR HEMOGLOBIN 29.8 pg (26.0-34.0); MEAN CORPUSCULAR HGB CONC 33.9 G/dL (31.0-37.0); MEAN CORPUSCULAR VOLUME 88 fL (80-100); MONOCYTES # (AUTO) 1.3 K/uL (0.1-1.0); MONOCYTES % (AUTO) 11.8 % (2.0-9.0); NEUTROPHILS % (AUTO) 64.9 % (40.0-70.0); PLATELET COUNT (AUTO) 433 K/uL (150-450); RED BLOOD CELL COUNT(AUTO) 4.04 MIL/uL (4.50-5.90); RED CELL DISTRIBUTION WIDTH 18.1 % (11.5-14.5)
[2018-03-16 08:05] LABS: HEMOGLOBIN A1C 5.2 % (4.5-6.2)
[2018-03-16 08:26] LABS: CARBON DIOXIDE 29 mmol/L (22-29); CHLORIDE 98 mmol/L (98-107); POTASSIUM 4.6 mmol/L (3.5-5.1); SODIUM SERUM 133 mmol/L (136-145)
[2018-03-16 08:27] LABS: ALANINE AMINOTRANSFERASE 17 U/L (12-78); ALKALINE PHOSPHATASE 159 U/L (46-116); ANION GAP 6 mmol/L (8-16); ASPARTATE AMINOTRANSFERASE 21 U/L (15-37); BILIRUBIN,TOTAL 0.4 mg/dL (0.1-1.0); CALCIUM, TOTAL 8.4 mg/dL (8.8-10.5); CHOLESTEROL 154 mg/dL (131-200); CREATININE 1.04 mg/dL (0.60-1.30); FREE T4 (FREE THYROXINE) 0.69 ng/dL (0.76-1.46); GLOMERULAR FILTR. RATE CALC > 60 mL/min (>60); GLUCOSE,RANDOM 79 mg/dL (70-110); HDL CHOLESTEROL 76 mg/dL (40-60); LDL CHOL (CALC.) 66 mg/dL (0-130); THYROID STIMULATING HORMONE 10.87 uIU/mL (0.36-3.74); TOTAL PROTEIN, SERUM 7.6 g/dL (6.4-8.2); TRIGLYCERIDES 60 mg/dL (15-150); UREA NITROGEN, BLOOD 18 mg/dL (7-18)
[2018-03-16 08:35] VITALS: BP 114/71
[2018-03-16] MEDS: NICOTINE 21 MG/24 HOUR PATCH TD SCH (08:58)
[2018-03-16] MEDS: FLUoxetine HCL 20 MG CAPSULE PO SCH (08:58)
[2018-03-16] MEDS: BuPROPion HCL XL 150 MG ER TABLET PO SCH (08:58)
[2018-03-16] MEDS ORDERED: METHADONE HCL 10 MG/5 ML SOLUTION ORAL.SYG PO SCH (09:00)
[2018-03-16 16:07] VITALS: BP 124/84
[2018-03-16] MEDS: HALOPERIDOL 5 MG TABLET PO PRN (16:21)
[2018-03-16] MEDS: QUEtiapine FUMARATE 300 MG TABLET PO SCH (20:05)
[2018-03-17 01:21] VITALS: BP 132/80
[2018-03-17] MEDS: LEVOTHYROXINE SODIUM 50 MCG TABLET PO SCH (06:44)
[2018-03-17] MEDS: BuPROPion HCL XL 150 MG ER TABLET PO SCH (08:24)
[2018-03-17] MEDS: FLUoxetine HCL 20 MG CAPSULE PO SCH (08:24)
[2018-03-17] MEDS: METHADONE HCL 10 MG/5 ML SOLUTION ORAL.SYG PO SCH (08:25)
[2018-03-17] MEDS: NICOTINE 21 MG/24 HOUR PATCH TD SCH (08:30)
[2018-03-17 10:33] LABS: AMPHET/METH SCREEN,URINE NEGATIVE (NEGATIVE); BARBITURATE SCREEN, URINE NEGATIVE (NEGATIVE); BENZODIAZEPINES SCREEN,URINE POSITIVE (NEGATIVE); CANNABINOID SCREEN,URINE NEGATIVE (NEGATIVE); COCAINE SCREEN,URINE NEGATIVE (NEGATIVE); METHADONE SCREEN, URINE POSITIVE (NEGATIVE); OPIATE SCREEN,URINE NEGATIVE (NEGATIVE)
[2018-03-17 10:35] LABS: PHENCYCLIDINE SCREEN,URINE NEGATIVE (NEGATIVE)
[2018-03-17 13:18] LABS: APPEARANCE,URINE CLEAR (CLEAR); BILIRUBIN,URINE NEGATIVE (NEGATIVE); GLUCOSE, URINE (UA) NEGATIVE (NEGATIVE); KETONES,URINE NEGATIVE (NEGATIVE); LEUKOCYTE ESTERASE ,URINE NEGATIVE (NEGATIVE); NITRATE,URINE NEGATIVE (NEGATIVE); OCCULT BLOOD,URINE NEGATIVE (NEGATIVE); PH,URINE 6.5 (5.0-8.0); PROTEIN,URINE NEGATIVE (NEGATIVE); UROBILINOGEN,URINE 0.2 mg/dL (<=1.0)
[2018-03-17] MEDS: HALOPERIDOL 5 MG TABLET PO PRN (14:56)
[2018-03-17 15:19] VITALS: BP 139/92
[2018-03-17 17:00] VITALS: BP 160/106
[2018-03-17 18:00] VITALS: BP_SYST 133; BP_SYST 150; BP_DIAS 100; BP_DIAS 68
[2018-03-17] MEDS ORDERED: LISINOPRIL 20 MG TABLET PO ONE (19:45)
[2018-03-17] MEDS: QUEtiapine FUMARATE 300 MG TABLET PO SCH (20:04)
[2018-03-17 20:30] VITALS: BP 133/68
[2018-03-17] MEDS ORDERED: GuaiFENesin/D-METHORPHAN [SUGAR-FREE] 200-20MG/10 ML SYRUP UDCUP PO PRN (21:30)
[2018-03-17 21:55] VITALS: BP 154/98
[2018-03-18 00:56] VITALS: BP 124/74
[2018-03-18] MEDS: LEVOTHYROXINE SODIUM 50 MCG TABLET PO SCH (07:01)
[2018-03-18 08:00] VITALS: BP 114/61
[2018-03-18] MEDS: FLUoxetine HCL 20 MG CAPSULE PO SCH (08:06)
[2018-03-18] MEDS: BuPROPion HCL XL 150 MG ER TABLET PO SCH (08:07)
[2018-03-18] MEDS: LISINOPRIL 20 MG TABLET PO SCH ×2 (08:07→16:09)
[2018-03-18] MEDS: METHADONE HCL 10 MG/5 ML SOLUTION ORAL.SYG PO SCH (08:08)
[2018-03-18] MEDS: MUPIROCIN CALCIUM 2% 22 GM OINTMENT NASAL SCH (08:08)
[2018-03-18] MEDS: NICOTINE 21 MG/24 HOUR PATCH TD SCH (08:12)
[2018-03-18 16:10] VITALS: BP 122/78
[2018-03-18] MEDS: HALOPERIDOL 5 MG TABLET PO PRN (17:38)
[2018-03-18] MEDS ORDERED: ALBUTEROL SULFATE HFA 90 MCG/PUFF 8 GM INHALER IH PRN (18:45)
[2018-03-18] MEDS: QUEtiapine FUMARATE 300 MG TABLET PO SCH (20:28)
[2018-03-19] MEDS: LEVOTHYROXINE SODIUM 50 MCG TABLET PO SCH (05:53)
[2018-03-19 06:05] VITALS: BP 112/80
[2018-03-19] MEDS: FLUoxetine HCL 20 MG CAPSULE PO SCH (08:11)
[2018-03-19] MEDS: BuPROPion HCL XL 150 MG ER TABLET PO SCH (08:11)
[2018-03-19] MEDS: LISINOPRIL 20 MG TABLET PO SCH ×2 (08:11→16:05)
[2018-03-19] MEDS: METHADONE HCL 10 MG/5 ML SOLUTION ORAL.SYG PO SCH (08:12)
[2018-03-19] MEDS: NICOTINE 21 MG/24 HOUR PATCH TD SCH (08:12)
[2018-03-19] MEDS: MUPIROCIN CALCIUM 2% 22 GM OINTMENT NASAL SCH (08:13)
[2018-03-19 08:19] VITALS: BP 122/71
[2018-03-19] MEDS: HALOPERIDOL 5 MG TABLET PO PRN (13:49)
[2018-03-19 16:43] VITALS: BP 140/84
[2018-03-19] MEDS: QUEtiapine FUMARATE 300 MG TABLET PO SCH (20:09)
[2018-03-20] MEDS: LEVOTHYROXINE SODIUM 50 MCG TABLET PO SCH (06:13)
[2018-03-20 06:38] VITALS: BP 124/87
[2018-03-20 08:04] VITALS: BP 121/81
[2018-03-20] MEDS: METHADONE HCL 10 MG/5 ML SOLUTION ORAL.SYG PO SCH (08:05)
[2018-03-20] MEDS: FLUoxetine HCL 20 MG CAPSULE PO SCH (08:05)
[2018-03-20] MEDS: BuPROPion HCL XL 150 MG ER TABLET PO SCH (08:05)
[2018-03-20] MEDS: LISINOPRIL 20 MG TABLET PO SCH ×2 (08:05→16:07)
[2018-03-20] MEDS: MUPIROCIN CALCIUM 2% 22 GM OINTMENT NASAL SCH (08:07)
[2018-03-20] MEDS: NICOTINE 21 MG/24 HOUR PATCH TD SCH (08:07)
[2018-03-20] MEDS: HALOPERIDOL 5 MG TABLET PO PRN (12:33)
[2018-03-20] MEDS ORDERED: ALBU8HFA IH (15:57)
[2018-03-20] MEDS ORDERED: MUPI1OIN4 NS (15:57)
[2018-03-20] MEDS ORDERED: LISI-662 PO (15:57)
[2018-03-20 16:00] VITALS: BP 136/76
== END 2018-03-20 16:50 | disposition home or self-care (01) | DRG 750 ==
LOC: B2S 21:49 → B3A 03-19 16:45
PROVIDERS: ADMIT Psychiatry & Neurology Psychiatry; ATTEND Psychiatry & Neurology Psychiatry
DX: F25.0 Schizoaffective disorder, bipolar type (principal); R45.851 Suicidal ideations; F11.20 Opioid dependence, uncomplicated; F22 Delusional disorders; K59.00 Constipation, unspecified; K21.9 Gastro-esophageal reflux disease without esophagitis; J44.9 Chronic obstructive pulmonary disease, unspecified; F19.90 Other psychoactive substance use, unspecified, uncomplicated; E03.9 Hypothyroidism, unspecified; R45.87 Impulsiveness; Z59.0 Homelessness; Z91.5 Personal history of self-harm; Z81.8 Family history of other mental and behavioral disorders
CPT/HCPCS: 80307; 83036; 84439; 84443; 87081; J3535

== ENCOUNTER 2018-03-31 14:19 | Emergency (ER) | payer MEDICAID, OTHER ==
[~2018-03-31] VITALS: Ht 185.4 cm; Wt 77.3 kg
[~2018-03-31 14:19] MED LIST changes: +ALBU8HFA IH; +LISI-662 PO; +MUPI1OIN4 NS
[2018-03-31 15:08] VITALS: BP 123/77
[2018-03-31 15:34] LABS: BASOPHILS % (AUTO) 0.8 % (0.0-2.0); EOSINOPHILS % (AUTO) 4.9 % (1.0-6.0); HEMATOCRIT 34.5 % (41-53); HEMOGLOBIN 11.5 g/dL (13.5-17.5); LYMPHOCYTES # (AUTO) 1.7 K/uL (1.0-4.8); LYMPHOCYTES % (AUTO) 24.8 % (22.0-44.0); MEAN CORPUSCULAR HEMOGLOBIN 29.6 pg (26.0-34.0); MEAN CORPUSCULAR HGB CONC 33.2 G/dL (31.0-37.0); MEAN CORPUSCULAR VOLUME 89 fL (80-100); MONOCYTES # (AUTO) 0.5 K/uL (0.1-1.0); MONOCYTES % (AUTO) 6.9 % (2.0-9.0); NEUTROPHILS # (AUTO) 4.2 K/uL (1.8-7.7); NEUTROPHILS % (AUTO) 62.6 % (40.0-70.0); PLATELET COUNT (AUTO) 233 K/uL (150-450); RED BLOOD CELL COUNT(AUTO) 3.87 MIL/uL (4.50-5.90); RED CELL DISTRIBUTION WIDTH 17.5 % (11.5-14.5)
[2018-03-31 15:38] LABS: ANION GAP 2 mmol/L (8-16); CALCIUM, TOTAL 8.6 mg/dL (8.8-10.5); CARBON DIOXIDE 30 mmol/L (22-29); CHLORIDE 101 mmol/L (98-107); CREATININE 0.91 mg/dL (0.60-1.30); GLOMERULAR FILTR. RATE CALC > 60 mL/min (>60); GLUCOSE,RANDOM 74 mg/dL (70-110); POTASSIUM 4.5 mmol/L (3.5-5.1); SODIUM SERUM 133 mmol/L (136-145); UREA NITROGEN, BLOOD 17 mg/dL (7-18)
[2018-03-31 15:44] LABS: ALANINE AMINOTRANSFERASE 14 U/L (12-78); ALBUMIN 3.4 g/dL (3.4-5.0); ALKALINE PHOSPHATASE 96 U/L (46-116); ASPARTATE AMINOTRANSFERASE 13 U/L (15-37); BILIRUBIN,TOTAL 0.2 mg/dL (0.1-1.0); TOTAL PROTEIN, SERUM 7.4 g/dL (6.4-8.2)
== END 2018-03-31 16:25 | disposition home or self-care (01) ==
LOC: EMS 14:20
DX: F10.10 Alcohol abuse, uncomplicated (principal); F20.9 Schizophrenia, unspecified; F32.9 Major depressive disorder, single episode, unspecified; J44.9 Chronic obstructive pulmonary disease, unspecified; F17.210 Nicotine dependence, cigarettes, uncomplicated; Z59.0 Homelessness
CPT/HCPCS: 36415; 80053; 85025; 99284; G0480

== ENCOUNTER 2018-05-25 16:44 | Inpatient (IN) | payer MEDICAID ==
[~2018-05-25] VITALS: Ht 180.3 cm; Wt 74.8 kg
[~2018-05-25 16:44] MED LIST changes: -ALBU8HFA IH; +AMLO-511 PO
[2018-05-25] MEDS ORDERED: ZOLPIDEM TARTRATE 10 MG TABLET PO PRN (17:30)
[2018-05-25] MEDS ORDERED: HALOPERIDOL 5 MG TABLET PO PRN (17:30)
[2018-05-25] MEDS ORDERED: LORazepam 2 MG TABLET PO PRN (17:30)
[2018-05-25 17:45] VITALS: BP_SYST 102; BP_SYST 106; BP_DIAS 68; BP_DIAS 70
[2018-05-25] MEDS ORDERED: -PHARMACY VACCINE NOTE- MISC ONE (18:30)
[2018-05-25 18:45] VITALS: BP 112/76
[2018-05-25 19:45] VITALS: BP 105/72
[2018-05-25 20:45] VITALS: BP 105/67
[2018-05-25] MEDS: QUEtiapine FUMARATE 300 MG TABLET PO SCH (20:51)
[2018-05-25 21:45] VITALS: BP 102/62
[2018-05-26 01:45] VITALS: BP 104/68
[2018-05-26] MEDS: LEVOTHYROXINE SODIUM 50 MCG TABLET PO SCH (06:26)
[2018-05-26 06:27] VITALS: BP 104/68
[2018-05-26 06:28] VITALS: BP 104/68
[2018-05-26 08:12] VITALS: BP 112/74
[2018-05-26] MEDS: FLUoxetine HCL 20 MG CAPSULE PO SCH (08:44)
[2018-05-26] MEDS: LISINOPRIL 10 MG TABLET PO SCH ×2 (08:44→16:57)
[2018-05-26] MEDS: QUEtiapine FUMARATE 200 MG TABLET PO SCH (08:44)
[2018-05-26] MEDS: BuPROPion HCL XL 150 MG ER TABLET PO SCH (08:44)
[2018-05-26] MEDS: AmLODIPine BESYLATE 5 MG TABLET PO SCH (08:44)
[2018-05-26 08:48] LABS: BASOPHILS % (AUTO) 0.2 % (0.0-2.0); EOSINOPHILS % (AUTO) 3.7 % (1.0-6.0); HEMATOCRIT 38.6 % (41-53); HEMOGLOBIN 12.7 g/dL (13.5-17.5); HEMOGLOBIN A1C 4.4 % (4.5-6.2); LYMPHOCYTES % (AUTO) 21.2 % (22.0-44.0); MEAN CORPUSCULAR HEMOGLOBIN 30.9 pg (26.0-34.0); MEAN CORPUSCULAR HGB CONC 32.9 G/dL (31.0-37.0); MEAN CORPUSCULAR VOLUME 94 fL (80-100); MONOCYTES # (AUTO) 1.3 K/uL (0.1-1.0); MONOCYTES % (AUTO) 13.8 % (2.0-9.0); NEUTROPHILS # (AUTO) 5.7 K/uL (1.8-7.7); NEUTROPHILS % (AUTO) 61.1 % (40.0-70.0); PLATELET COUNT (AUTO) 275 K/uL (150-450); RED BLOOD CELL COUNT(AUTO) 4.11 MIL/uL (4.50-5.90); RED CELL DISTRIBUTION WIDTH 21.1 % (11.5-14.5)
[2018-05-26] MEDS ORDERED: LISINOPRIL 20 MG TABLET PO SCH (09:00)
[2018-05-26] MEDS ORDERED: METHADONE HCL 10 MG TABLET PO SCH ×3 (09:00)
[2018-05-26 09:04] LABS: ALANINE AMINOTRANSFERASE 12 U/L (12-78); ALBUMIN 3.1 g/dL (3.4-5.0); ALKALINE PHOSPHATASE 106 U/L (46-116); ANION GAP 9 mmol/L (8-16); ASPARTATE AMINOTRANSFERASE 12 U/L (15-37); BILIRUBIN,TOTAL 0.4 mg/dL (0.1-1.0); CALCIUM, TOTAL 8.8 mg/dL (8.8-10.5); CARBON DIOXIDE 28 mmol/L (22-29); CHLORIDE 99 mmol/L (98-107); CHOL/HDL RATIO 1.8 (4.2-7.3); CHOLESTEROL 155 mg/dL (131-200); CREATININE 0.99 mg/dL (0.60-1.30); FREE T4 (FREE THYROXINE) 0.83 ng/dL (0.76-1.46); GLOMERULAR FILTR. RATE CALC > 60 mL/min (>60); GLUCOSE,RANDOM 90 mg/dL (70-110); HDL CHOLESTEROL 88 mg/dL (40-60); LDL CHOL (CALC.) 48 mg/dL (0-130); POTASSIUM 4.2 mmol/L (3.5-5.1); SODIUM SERUM 136 mmol/L (136-145); THYROID STIMULATING HORMONE 9.08 uIU/mL (0.36-3.74); TOTAL PROTEIN, SERUM 6.5 g/dL (6.4-8.2); TRIGLYCERIDES 95 mg/dL (15-150); UREA NITROGEN, BLOOD 25 mg/dL (7-18)
[2018-05-26] MEDS: METHADONE HCL 10 MG TABLET PO SCH (09:15)
[2018-05-26 16:00] VITALS: BP 108/66
[2018-05-26] MEDS: QUEtiapine FUMARATE 300 MG TABLET PO SCH (20:44)
[2018-05-27] MEDS: LEVOTHYROXINE SODIUM 50 MCG TABLET PO SCH (06:16)
[2018-05-27 06:22] VITALS: BP 106/65
[2018-05-27 07:34] VITALS: BP 107/78
[2018-05-27] MEDS: METHADONE HCL 10 MG TABLET PO SCH (08:20)
[2018-05-27] MEDS: QUEtiapine FUMARATE 200 MG TABLET PO SCH (08:21)
[2018-05-27] MEDS: FLUoxetine HCL 20 MG CAPSULE PO SCH (08:21)
[2018-05-27] MEDS: BuPROPion HCL XL 150 MG ER TABLET PO SCH (08:22)
[2018-05-27] MEDS: AmLODIPine BESYLATE 5 MG TABLET PO SCH (08:22)
[2018-05-27] MEDS: LISINOPRIL 10 MG TABLET PO SCH ×2 (08:22→15:52)
[2018-05-27] MEDS: CLOTRIMAZOLE 1% 10 ML SOLUTION TP SCH (15:53)
[2018-05-27 16:15] VITALS: BP 107/64
[2018-05-27] MEDS: QUEtiapine FUMARATE 300 MG TABLET PO SCH (20:04)
[2018-05-28 00:28] VITALS: BP 115/70
[2018-05-28] MEDS: LEVOTHYROXINE SODIUM 50 MCG TABLET PO SCH (06:24)
[2018-05-28 08:28] VITALS: BP 116/78
[2018-05-28] MEDS: METHADONE HCL 10 MG TABLET PO SCH (08:40)
[2018-05-28] MEDS: LISINOPRIL 10 MG TABLET PO SCH ×2 (08:40→20:00)
[2018-05-28] MEDS: QUEtiapine FUMARATE 200 MG TABLET PO SCH (08:41)
[2018-05-28] MEDS: FLUoxetine HCL 20 MG CAPSULE PO SCH (08:41)
[2018-05-28] MEDS: AmLODIPine BESYLATE 5 MG TABLET PO SCH (08:41)
[2018-05-28] MEDS: BuPROPion HCL XL 150 MG ER TABLET PO SCH (08:41)
[2018-05-28] MEDS: CLOTRIMAZOLE 1% 10 ML SOLUTION TP SCH ×3 (08:43→21:41)
[2018-05-28] MEDS ORDERED: METHADONE HCL 10 MG TABLET PO SCH (09:00)
[2018-05-28 14:15] VITALS: BP 105/45
[2018-05-28 14:33] VITALS: BP 82/51
[2018-05-28 15:00] VITALS: BP 105/46
[2018-05-28 20:00] VITALS: BP 98/62
[2018-05-28] MEDS: QUEtiapine FUMARATE 300 MG TABLET PO SCH (21:00)
[2018-05-29 02:44] VITALS: BP 123/75
[2018-05-29] MEDS: LEVOTHYROXINE SODIUM 50 MCG TABLET PO SCH (06:29)
[2018-05-29 08:02] VITALS: BP 130/60
[2018-05-29] MEDS: METHADONE HCL 10 MG TABLET PO SCH (08:09)
[2018-05-29] MEDS: QUEtiapine FUMARATE 200 MG TABLET PO SCH (08:09)
[2018-05-29] MEDS: FLUoxetine HCL 20 MG CAPSULE PO SCH (08:10)
[2018-05-29] MEDS: BuPROPion HCL XL 150 MG ER TABLET PO SCH (08:10)
[2018-05-29] MEDS: CLOTRIMAZOLE 1% 10 ML SOLUTION TP SCH ×3 (08:10→16:40)
[2018-05-29] MEDS: AmLODIPine BESYLATE 5 MG TABLET PO SCH (09:00)
[2018-05-29] MEDS: LISINOPRIL 10 MG TABLET PO SCH ×2 (09:00→16:39)
[2018-05-29 16:36] VITALS: BP 108/59
[2018-05-29 18:15] VITALS: BP 113/77
[2018-05-29] MEDS: QUEtiapine FUMARATE 300 MG TABLET PO SCH (20:56)
[2018-05-30 02:01] VITALS: BP 118/71
[2018-05-30] MEDS: LEVOTHYROXINE SODIUM 50 MCG TABLET PO SCH (06:19)
[2018-05-30 08:08] VITALS: BP 106/61
[2018-05-30] MEDS: CLOTRIMAZOLE 1% 10 ML SOLUTION TP SCH ×3 (08:22→16:59)
[2018-05-30] MEDS: BuPROPion HCL XL 150 MG ER TABLET PO SCH (08:23)
[2018-05-30] MEDS: METHADONE HCL 10 MG TABLET PO SCH (08:23)
[2018-05-30] MEDS: LISINOPRIL 10 MG TABLET PO SCH ×2 (08:23→16:59)
[2018-05-30] MEDS: FLUoxetine HCL 20 MG CAPSULE PO SCH (08:23)
[2018-05-30] MEDS: QUEtiapine FUMARATE 200 MG TABLET PO SCH (08:23)
[2018-05-30] MEDS: AmLODIPine BESYLATE 5 MG TABLET PO SCH (08:24)
[2018-05-30 16:00] VITALS: BP 108/73
[2018-05-30] MEDS: QUEtiapine FUMARATE 300 MG TABLET PO SCH (20:27)
[2018-05-31 02:51] VITALS: BP 110/72
[2018-05-31] MEDS: LEVOTHYROXINE SODIUM 50 MCG TABLET PO SCH (06:08)
[2018-05-31 08:18] VITALS: BP 125/68
[2018-05-31] MEDS: BuPROPion HCL XL 150 MG ER TABLET PO SCH (08:21)
[2018-05-31] MEDS: FLUoxetine HCL 20 MG CAPSULE PO SCH (08:22)
[2018-05-31] MEDS: QUEtiapine FUMARATE 200 MG TABLET PO SCH (08:22)
[2018-05-31] MEDS: CLOTRIMAZOLE 1% 10 ML SOLUTION TP SCH ×2 (08:23→12:56)
[2018-05-31] MEDS ORDERED: METHADONE HCL 10 MG TABLET PO SCH (09:00)
[2018-05-31] MEDS ORDERED: QUET200T PO (12:40)
== END 2018-05-31 13:40 | disposition home or self-care (01) | DRG 750 ==
LOC: B3A 17:33
PROVIDERS: ADMIT Psychiatry & Neurology Psychiatry; ATTEND Psychiatry & Neurology Psychiatry
DX: F25.0 Schizoaffective disorder, bipolar type (principal); R45.851 Suicidal ideations; F11.20 Opioid dependence, uncomplicated; I10 Essential (primary) hypertension; F17.200 Nicotine dependence, unspecified, uncomplicated; B35.3 Tinea pedis; J44.9 Chronic obstructive pulmonary disease, unspecified; B19.20 Unspecified viral hepatitis C without hepatic coma; E03.9 Hypothyroidism, unspecified; F12.90 Cannabis use, unspecified, uncomplicated; F14.90 Cocaine use, unspecified, uncomplicated; K21.9 Gastro-esophageal reflux disease without esophagitis; Z59.0 Homelessness; Z81.8 Family history of other mental and behavioral disorders; Z86.14 Personal history of Methicillin resistant Staphylococcus aureus infection; Z72.89 Other problems related to lifestyle; Z91.5 Personal history of self-harm; Z79.899 Other long term (current) drug therapy
CPT/HCPCS: 83036; 84439; 84443; 87081

== ENCOUNTER 2018-05-28 15:33 | Emergency (ER) | payer MEDICAID, OTHER ==
[~2018-05-28] VITALS: Ht 188 cm; Wt 79.5 kg
[2018-05-28] MEDS ORDERED: SODIUM CHLORIDE 0.9% 1,000 ML IV ONE ×2 (16:15→17:00)
[2018-05-28 16:48] LABS: CALCIUM, TOTAL 9.1 mg/dL (8.8-10.5); CREATININE 1.68 mg/dL (0.60-1.30); POTASSIUM 5.1 mmol/L (3.5-5.1)
[2018-05-28 16:55] LABS: ALBUMIN 3.1 g/dL (3.4-5.0); BILIRUBIN,TOTAL 0.2 mg/dL (0.1-1.0); TOTAL PROTEIN, SERUM 6.9 g/dL (6.4-8.2)
[2018-05-28 16:56] LABS: BASOPHILS % (AUTO) 0.7 % (0.0-2.0); EOSINOPHILS % (AUTO) 6.1 % (1.0-6.0); HEMATOCRIT 34.9 % (41-53); HEMOGLOBIN 11.8 g/dL (13.5-17.5); LYMPHOCYTES # (AUTO) 1.5 K/uL (1.0-4.8); LYMPHOCYTES % (AUTO) 27.9 % (22.0-44.0); MEAN CORPUSCULAR HEMOGLOBIN 31.7 pg (26.0-34.0); MEAN CORPUSCULAR HGB CONC 33.8 G/dL (31.0-37.0); MEAN CORPUSCULAR VOLUME 94 fL (80-100); MONOCYTES # (AUTO) 0.7 K/uL (0.1-1.0); MONOCYTES % (AUTO) 12.2 % (2.0-9.0); NEUTROPHILS # (AUTO) 2.9 K/uL (1.8-7.7); NEUTROPHILS % (AUTO) 53.1 % (40.0-70.0); PLATELET COUNT (AUTO) 303 K/uL (150-450); RED BLOOD CELL COUNT(AUTO) 3.72 MIL/uL (4.50-5.90); RED CELL DISTRIBUTION WIDTH 20.3 % (11.5-14.5)
[2018-05-28 18:52] VITALS: BP 101/56
== END 2018-05-28 18:53 | disposition home or self-care (01) ==
LOC: EMS 15:35
DX: E86.0 Dehydration (principal); F20.9 Schizophrenia, unspecified; F31.9 Bipolar disorder, unspecified; J44.9 Chronic obstructive pulmonary disease, unspecified; F17.210 Nicotine dependence, cigarettes, uncomplicated; F11.90 Opioid use, unspecified, uncomplicated; Z59.0 Homelessness
CPT/HCPCS: 36415; 80053; 85025; 96360; 99284; J7030

== ENCOUNTER 2018-06-09 04:22 | Emergency (ER) | payer MEDICAID, OTHER ==
[~2018-06-09] VITALS: Ht 188 cm; Wt 72.7 kg
[~2018-06-09 04:22] MED LIST changes: -AMLO-511 PO; +BUPR100 PO; -LISI-662 PO; -MUPI1OIN4 NS; +QUET200T PO
[2018-06-09 04:31] VITALS: BP 161/97
[2018-06-09 04:57] LABS: BASOPHILS % (AUTO) 0.6 % (0.0-2.0); EOSINOPHILS % (AUTO) 6.2 % (1.0-6.0); HEMATOCRIT 36.4 % (41-53); HEMOGLOBIN 12.1 g/dL (13.5-17.5); LYMPHOCYTES # (AUTO) 1.3 K/uL (1.0-4.8); LYMPHOCYTES % (AUTO) 21.3 % (22.0-44.0); MEAN CORPUSCULAR HGB CONC 33.1 G/dL (31.0-37.0); MEAN CORPUSCULAR VOLUME 94 fL (80-100); MONOCYTES # (AUTO) 0.5 K/uL (0.1-1.0); NEUTROPHILS # (AUTO) 3.8 K/uL (1.8-7.7); NEUTROPHILS % (AUTO) 63.9 % (40.0-70.0); PLATELET COUNT (AUTO) 286 K/uL (150-450); RED BLOOD CELL COUNT(AUTO) 3.89 MIL/uL (4.50-5.90)
[2018-06-09 04:58] LABS: AMPHET/METH SCREEN,URINE NEGATIVE (NEGATIVE); BARBITURATE SCREEN, URINE NEGATIVE (NEGATIVE); BENZODIAZEPINES SCREEN,URINE NEGATIVE (NEGATIVE); CANNABINOID SCREEN,URINE NEGATIVE (NEGATIVE); COCAINE SCREEN,URINE NEGATIVE (NEGATIVE); METHADONE SCREEN, URINE POSITIVE (NEGATIVE); OPIATE SCREEN,URINE NEGATIVE (NEGATIVE)
[2018-06-09 05:00] LABS: PHENCYCLIDINE SCREEN,URINE NEGATIVE (NEGATIVE)
[2018-06-09 05:10] LABS: ANION GAP 9 mmol/L (8-16); CALCIUM, TOTAL 8.6 mg/dL (8.8-10.5); CARBON DIOXIDE 30 mmol/L (22-29); CHLORIDE 102 mmol/L (98-107); CREATININE 0.77 mg/dL (0.60-1.30); GLOMERULAR FILTR. RATE CALC > 60 mL/min (>60); GLUCOSE,RANDOM 90 mg/dL (70-110); POTASSIUM 3.9 mmol/L (3.5-5.1); SODIUM SERUM 141 mmol/L (136-145); UREA NITROGEN, BLOOD 9 mg/dL (7-18)
[2018-06-09 05:23] LABS: ALANINE AMINOTRANSFERASE 18 U/L (12-78); ALBUMIN 3.1 g/dL (3.4-5.0); ALKALINE PHOSPHATASE 137 U/L (46-116); ASPARTATE AMINOTRANSFERASE 23 U/L (15-37); BILIRUBIN,TOTAL 0.3 mg/dL (0.1-1.0); TOTAL PROTEIN, SERUM 7.2 g/dL (6.4-8.2)
[2018-06-11] MEDS ORDERED: AMLO-511 PO (12:27)
== END 2018-06-09 05:54 | disposition other institution (70) ==
LOC: EMS 04:24
DX: F20.0 Paranoid schizophrenia (principal); F31.9 Bipolar disorder, unspecified; J44.9 Chronic obstructive pulmonary disease, unspecified; K21.9 Gastro-esophageal reflux disease without esophagitis; I10 Essential (primary) hypertension; E03.9 Hypothyroidism, unspecified; F11.10 Opioid abuse, uncomplicated; F17.210 Nicotine dependence, cigarettes, uncomplicated; Z59.0 Homelessness
CPT/HCPCS: 36415; 80053; 80307; 85025; 99285; G0480

== ENCOUNTER 2018-06-11 18:14 | Emergency (ER) | payer OTHER ==
[~2018-06-11 18:14] MED LIST changes: +AMLO-511 PO
== END 2018-06-11 18:56 | disposition left against medical advice (07) ==
LOC: EMS 18:16
DX: Z00.00 Encounter for general adult medical examination without abnormal findings (principal); Z53.21 Procedure and treatment not carried out due to patient leaving prior to being seen by health care provider

== ENCOUNTER 2018-06-28 16:29 | Inpatient (IN) | payer MEDICAID ==
[~2018-06-28] VITALS: Ht 188 cm; Wt 80.7 kg
[~2018-06-28 16:29] MED LIST changes: -BUPR100 PO
[2018-06-28 19:13] VITALS: BP 121/83
[2018-06-28] MEDS ORDERED: ZOLPIDEM TARTRATE 10 MG TABLET PO PRN (19:15)
[2018-06-28] MEDS ORDERED: HALOPERIDOL 5 MG TABLET PO PRN (19:15)
[2018-06-28] MEDS ORDERED: LORazepam 2 MG TABLET PO PRN (19:15)
[2018-06-28 20:26] VITALS: BP 129/81
[2018-06-28] MEDS ORDERED: QUEtiapine FUMARATE 300 MG TABLET PO SCH (21:00)
[2018-06-29] MEDS: FLUoxetine HCL 20 MG CAPSULE PO SCH (08:18)
[2018-06-29] MEDS: BuPROPion HCL XL 150 MG ER TABLET PO SCH (08:18)
[2018-06-29] MEDS: METHADONE HCL 10 MG TABLET PO SCH (08:18)
[2018-06-29 08:23] VITALS: BP 149/67
[2018-06-29] MEDS ORDERED: QUEtiapine FUMARATE 200 MG TABLET PO SCH (09:00)
[2018-06-29 16:01] VITALS: BP 140/79
[2018-06-29] MEDS: CEPHALEXIN MONOHYDRATE 500 MG CAPSULE PO SCH ×2 (16:24→20:11)
[2018-06-29] MEDS ORDERED: QUEtiapine FUMARATE 300 MG TABLET PO SCH (20:45)
[2018-06-29] MEDS ORDERED: QUEtiapine FUMARATE 300 MG TABLET PO ONE (20:45)
[2018-06-30] MEDS: LEVOTHYROXINE SODIUM 50 MCG TABLET PO SCH (06:51)
[2018-06-30 08:03] VITALS: BP 143/85
[2018-06-30] MEDS: FLUoxetine HCL 20 MG CAPSULE PO SCH (08:06)
[2018-06-30] MEDS: QUEtiapine FUMARATE 300 MG TABLET PO SCH ×4 (08:06→16:19)
[2018-06-30] MEDS: BuPROPion HCL XL 150 MG ER TABLET PO SCH (08:06)
[2018-06-30] MEDS: METHADONE HCL 10 MG TABLET PO SCH (08:07)
[2018-06-30] MEDS: AmLODIPine BESYLATE 5 MG TABLET PO SCH (08:07)
[2018-06-30] MEDS: CEPHALEXIN MONOHYDRATE 500 MG CAPSULE PO SCH ×4 (08:07→20:13)
[2018-06-30 08:17] LABS: BASOPHILS % (AUTO) 0.3 % (0.0-2.0); EOSINOPHILS % (AUTO) 5.1 % (1.0-6.0); HEMATOCRIT 39.3 % (41-53); LYMPHOCYTES # (AUTO) 1.3 K/uL (1.0-4.8); LYMPHOCYTES % (AUTO) 22.6 % (22.0-44.0); MEAN CORPUSCULAR HEMOGLOBIN 31.1 pg (26.0-34.0); MEAN CORPUSCULAR VOLUME 94 fL (80-100); MONOCYTES # (AUTO) 0.7 K/uL (0.1-1.0); MONOCYTES % (AUTO) 11.8 % (2.0-9.0); NEUTROPHILS # (AUTO) 3.4 K/uL (1.8-7.7); NEUTROPHILS % (AUTO) 60.2 % (40.0-70.0); PLATELET COUNT (AUTO) 212 K/uL (150-450); RED BLOOD CELL COUNT(AUTO) 4.16 MIL/uL (4.50-5.90); RED CELL DISTRIBUTION WIDTH 18.7 % (11.5-14.5)
[2018-06-30 08:21] LABS: HEMOGLOBIN A1C 5.4 % (4.5-6.2)
[2018-06-30 08:40] LABS: ALANINE AMINOTRANSFERASE 22 U/L (12-78); ALBUMIN 2.9 g/dL (3.4-5.0); ALKALINE PHOSPHATASE 135 U/L (46-116); ANION GAP 8 mmol/L (8-16); ASPARTATE AMINOTRANSFERASE 24 U/L (15-37); BILIRUBIN,TOTAL 0.4 mg/dL (0.1-1.0); CALCIUM, TOTAL 9.2 mg/dL (8.8-10.5); CARBON DIOXIDE 27 mmol/L (22-29); CHLORIDE 103 mmol/L (98-107); CHOL/HDL RATIO 1.8 (4.2-7.3); CHOLESTEROL 156 mg/dL (131-200); FREE T4 (FREE THYROXINE) 0.54 ng/dL (0.76-1.46); GLOMERULAR FILTR. RATE CALC > 60 mL/min (>60); GLUCOSE,RANDOM 83 mg/dL (70-110); HDL CHOLESTEROL 87 mg/dL (40-60); LDL CHOL (CALC.) 56 mg/dL (0-130); POTASSIUM 4.4 mmol/L (3.5-5.1); SODIUM SERUM 138 mmol/L (136-145); THYROID STIMULATING HORMONE 9.09 uIU/mL (0.36-3.74); TOTAL PROTEIN, SERUM 6.7 g/dL (6.4-8.2); TRIGLYCERIDES 65 mg/dL (15-150); UREA NITROGEN, BLOOD 14 mg/dL (7-18)
[2018-06-30 16:05] VITALS: BP 140/79
[2018-06-30] MEDS ORDERED: QUEtiapine FUMARATE 300 MG TABLET PO SCH (17:00)
[2018-07-01 00:09] VITALS: BP 121/80
[2018-07-01] MEDS: LEVOTHYROXINE SODIUM 50 MCG TABLET PO SCH (06:34)
[2018-07-01 08:13] VITALS: BP 133/85
[2018-07-01] MEDS: CEPHALEXIN MONOHYDRATE 500 MG CAPSULE PO SCH ×4 (09:57→20:05)
[2018-07-01] MEDS: FLUoxetine HCL 20 MG CAPSULE PO SCH (09:58)
[2018-07-01] MEDS: AmLODIPine BESYLATE 5 MG TABLET PO SCH (09:58)
[2018-07-01] MEDS: QUEtiapine FUMARATE 300 MG TABLET PO SCH ×2 (09:58→16:06)
[2018-07-01] MEDS: METHADONE HCL 10 MG TABLET PO SCH (09:58)
[2018-07-01] MEDS: BuPROPion HCL XL 150 MG ER TABLET PO SCH (09:58)
[2018-07-01 16:29] VITALS: BP 112/70
[2018-07-02 05:31] VITALS: BP 120/81
[2018-07-02] MEDS: LEVOTHYROXINE SODIUM 50 MCG TABLET PO SCH (06:32)
[2018-07-02 07:56] VITALS: BP 140/90
[2018-07-02] MEDS: BuPROPion HCL XL 150 MG ER TABLET PO SCH (08:17)
[2018-07-02] MEDS: AmLODIPine BESYLATE 5 MG TABLET PO SCH (08:18)
[2018-07-02] MEDS: CEPHALEXIN MONOHYDRATE 500 MG CAPSULE PO SCH ×4 (08:18→20:18)
[2018-07-02] MEDS: QUEtiapine FUMARATE 300 MG TABLET PO SCH ×2 (08:18→17:46)
[2018-07-02] MEDS: METHADONE HCL 10 MG TABLET PO SCH (08:18)
[2018-07-02] MEDS: FLUoxetine HCL 20 MG CAPSULE PO SCH (08:18)
[2018-07-02 08:35] VITALS: BP 140/90
[2018-07-02 16:03] VITALS: BP 118/75
[2018-07-03 05:31] VITALS: BP 120/81
[2018-07-03] MEDS: LEVOTHYROXINE SODIUM 50 MCG TABLET PO SCH (06:43)
[2018-07-03] MEDS: BuPROPion HCL XL 150 MG ER TABLET PO SCH (08:21)
[2018-07-03] MEDS: FLUoxetine HCL 20 MG CAPSULE PO SCH (08:21)
[2018-07-03] MEDS: AmLODIPine BESYLATE 5 MG TABLET PO SCH (08:21)
[2018-07-03] MEDS: CEPHALEXIN MONOHYDRATE 500 MG CAPSULE PO SCH ×4 (08:21→20:51)
[2018-07-03] MEDS: QUEtiapine FUMARATE 300 MG TABLET PO SCH ×2 (08:21→17:00)
[2018-07-03] MEDS: METHADONE HCL 10 MG/5 ML SOLUTION ORAL.SYG PO SCH (08:22)
[2018-07-03 08:44] VITALS: BP 147/95
[2018-07-03 16:07] VITALS: BP 122/86
[2018-07-04 05:03] VITALS: BP 120/81
[2018-07-04] MEDS: LEVOTHYROXINE SODIUM 50 MCG TABLET PO SCH (06:44)
[2018-07-04 08:13] VITALS: BP 140/87
[2018-07-04] MEDS: BuPROPion HCL XL 150 MG ER TABLET PO SCH (08:20)
[2018-07-04] MEDS: QUEtiapine FUMARATE 300 MG TABLET PO SCH ×2 (08:21→20:22)
[2018-07-04] MEDS: FLUoxetine HCL 20 MG CAPSULE PO SCH (08:21)
[2018-07-04] MEDS: AmLODIPine BESYLATE 5 MG TABLET PO SCH (08:23)
[2018-07-04] MEDS: CEPHALEXIN MONOHYDRATE 500 MG CAPSULE PO SCH ×4 (08:23→20:22)
[2018-07-04] MEDS: METHADONE HCL 10 MG/5 ML SOLUTION ORAL.SYG PO SCH (08:56)
[2018-07-04 16:00] VITALS: BP 126/78
[2018-07-05 06:05] VITALS: BP 139/86
[2018-07-05] MEDS: LEVOTHYROXINE SODIUM 50 MCG TABLET PO SCH (06:10)
[2018-07-05] MEDS: METHADONE HCL 10 MG/5 ML SOLUTION ORAL.SYG PO SCH (08:29)
[2018-07-05] MEDS: CEPHALEXIN MONOHYDRATE 500 MG CAPSULE PO SCH ×4 (08:30→20:20)
[2018-07-05] MEDS: FLUoxetine HCL 20 MG CAPSULE PO SCH (08:30)
[2018-07-05] MEDS: BuPROPion HCL XL 150 MG ER TABLET PO SCH (08:30)
[2018-07-05] MEDS: MULTIVITAMINS WITH MINERALS, THERAPEUTIC TABLET PO SCH (08:30)
[2018-07-05] MEDS: AmLODIPine BESYLATE 5 MG TABLET PO SCH (08:31)
[2018-07-05 08:33] VITALS: BP 116/74
[2018-07-05 16:15] VITALS: BP 123/75
[2018-07-05] MEDS: QUEtiapine FUMARATE 300 MG TABLET PO SCH (20:20)
[2018-07-06 05:49] VITALS: BP 126/78
[2018-07-06] MEDS: LEVOTHYROXINE SODIUM 50 MCG TABLET PO SCH (06:29)
[2018-07-06 08:00] VITALS: BP 123/79
[2018-07-06] MEDS: MULTIVITAMINS WITH MINERALS, THERAPEUTIC TABLET PO SCH (08:23)
[2018-07-06] MEDS: AmLODIPine BESYLATE 5 MG TABLET PO SCH (08:23)
[2018-07-06] MEDS: METHADONE HCL 10 MG/5 ML SOLUTION ORAL.SYG PO SCH (08:23)
[2018-07-06] MEDS: FLUoxetine HCL 20 MG CAPSULE PO SCH (08:24)
[2018-07-06] MEDS: BuPROPion HCL XL 150 MG ER TABLET PO SCH (08:24)
[2018-07-06] MEDS: CEPHALEXIN MONOHYDRATE 500 MG CAPSULE PO SCH ×2 (08:24→12:21)
[2018-07-06 16:02] VITALS: BP 100/60
[2018-07-06] MEDS: QUEtiapine FUMARATE 300 MG TABLET PO SCH ×3 (20:36→21:06)
[2018-07-07 06:26] VITALS: BP 120/81
[2018-07-07] MEDS: LEVOTHYROXINE SODIUM 50 MCG TABLET PO SCH (06:44)
[2018-07-07 08:13] VITALS: BP 109/77
[2018-07-07] MEDS: MULTIVITAMINS WITH MINERALS, THERAPEUTIC TABLET PO SCH (08:21)
[2018-07-07] MEDS: AmLODIPine BESYLATE 5 MG TABLET PO SCH (08:21)
[2018-07-07] MEDS: BuPROPion HCL XL 150 MG ER TABLET PO SCH (08:21)
[2018-07-07] MEDS: FLUoxetine HCL 20 MG CAPSULE PO SCH (08:21)
[2018-07-07] MEDS: METHADONE HCL 10 MG/5 ML SOLUTION ORAL.SYG PO SCH (08:22)
[2018-07-07 16:09] VITALS: BP 117/74
[2018-07-07] MEDS: QUEtiapine FUMARATE 300 MG TABLET PO SCH (20:28)
[2018-07-08 06:19] VITALS: BP 140/92
[2018-07-08] MEDS: LEVOTHYROXINE SODIUM 50 MCG TABLET PO SCH (06:33)
[2018-07-08 08:21] VITALS: BP 122/87
[2018-07-08] MEDS: BuPROPion HCL XL 150 MG ER TABLET PO SCH (08:22)
[2018-07-08] MEDS: FLUoxetine HCL 20 MG CAPSULE PO SCH (08:22)
[2018-07-08] MEDS: AmLODIPine BESYLATE 5 MG TABLET PO SCH (08:22)
[2018-07-08] MEDS: MULTIVITAMINS WITH MINERALS, THERAPEUTIC TABLET PO SCH (08:22)
[2018-07-08] MEDS: METHADONE HCL 10 MG/5 ML SOLUTION ORAL.SYG PO SCH (08:23)
[2018-07-08] MEDS ORDERED: FLUoxetine HCL 20 MG CAPSULE PO ONE (11:15)
[2018-07-08 16:02] VITALS: BP 110/64
[2018-07-08] MEDS: QUEtiapine FUMARATE 300 MG TABLET PO SCH (20:37)
[2018-07-09 06:10] VITALS: BP 120/86
[2018-07-09] MEDS: LEVOTHYROXINE SODIUM 50 MCG TABLET PO SCH (06:33)
[2018-07-09 08:28] VITALS: BP 115/81
[2018-07-09] MEDS: FLUoxetine HCL 20 MG CAPSULE PO SCH (08:44)
[2018-07-09] MEDS: BuPROPion HCL XL 150 MG ER TABLET PO SCH (08:44)
[2018-07-09] MEDS: AmLODIPine BESYLATE 5 MG TABLET PO SCH (08:44)
[2018-07-09] MEDS: MULTIVITAMINS WITH MINERALS, THERAPEUTIC TABLET PO SCH (08:44)
[2018-07-09] MEDS: METHADONE HCL 10 MG/5 ML SOLUTION ORAL.SYG PO SCH (08:45)
[2018-07-09 16:01] VITALS: BP 109/81
[2018-07-09] MEDS: QUEtiapine FUMARATE 300 MG TABLET PO SCH (20:32)
[2018-07-10 04:51] VITALS: BP 112/84
[2018-07-10] MEDS: LEVOTHYROXINE SODIUM 50 MCG TABLET PO SCH (06:42)
[2018-07-10] MEDS: AmLODIPine BESYLATE 5 MG TABLET PO SCH (08:30)
[2018-07-10] MEDS: FLUoxetine HCL 20 MG CAPSULE PO SCH (08:31)
[2018-07-10] MEDS: BuPROPion HCL XL 150 MG ER TABLET PO SCH (08:31)
[2018-07-10] MEDS: MULTIVITAMINS WITH MINERALS, THERAPEUTIC TABLET PO SCH (08:31)
[2018-07-10] MEDS: METHADONE HCL 10 MG/5 ML SOLUTION ORAL.SYG PO SCH (08:32)
[2018-07-10 09:34] VITALS: BP 118/89
[2018-07-10 16:35] VITALS: BP 111/80
[2018-07-10] MEDS: QUEtiapine FUMARATE 300 MG TABLET PO SCH (20:23)
[2018-07-11 06:07] VITALS: BP 108/86
[2018-07-11] MEDS: LEVOTHYROXINE SODIUM 50 MCG TABLET PO SCH (06:47)
[2018-07-11] MEDS: BuPROPion HCL XL 150 MG ER TABLET PO SCH (08:14)
[2018-07-11] MEDS: METHADONE HCL 10 MG/5 ML SOLUTION ORAL.SYG PO SCH (08:14)
[2018-07-11] MEDS: FLUoxetine HCL 20 MG CAPSULE PO SCH (08:14)
[2018-07-11] MEDS: AmLODIPine BESYLATE 5 MG TABLET PO SCH (08:14)
[2018-07-11] MEDS: MULTIVITAMINS WITH MINERALS, THERAPEUTIC TABLET PO SCH (08:15)
[2018-07-11 08:32] VITALS: BP 125/69
[2018-07-11 16:11] VITALS: BP 121/89
[2018-07-11] MEDS: QUEtiapine FUMARATE 300 MG TABLET PO SCH (20:26)
[2018-07-12] MEDS: LEVOTHYROXINE SODIUM 50 MCG TABLET PO SCH (06:30)
[2018-07-12 07:12] VITALS: BP 126/88
[2018-07-12 08:06] VITALS: BP 107/74
[2018-07-12] MEDS: BuPROPion HCL XL 150 MG ER TABLET PO SCH (08:55)
[2018-07-12] MEDS: FLUoxetine HCL 20 MG CAPSULE PO SCH (09:07)
[2018-07-12] MEDS: AmLODIPine BESYLATE 5 MG TABLET PO SCH (09:08)
[2018-07-12] MEDS: MULTIVITAMINS WITH MINERALS, THERAPEUTIC TABLET PO SCH (09:08)
[2018-07-12] MEDS: METHADONE HCL 10 MG/5 ML SOLUTION ORAL.SYG PO SCH (09:11)
[2018-07-12] MEDS ORDERED: BUPR-93 PO (10:09)
[2018-07-12] MEDS ORDERED: QUET300T2 PO (10:09)
[2018-07-12] MEDS ORDERED: FLUO-191 PO (10:11)
[2019-06-29] MEDS ORDERED: QUEtiapine FUMARATE 300 MG TABLET PO SCH (17:00)
[2020-06-29] MEDS ORDERED: QUEtiapine FUMARATE 300 MG TABLET PO SCH (20:30)
== END 2018-07-12 12:25 | disposition home or self-care (01) | DRG 750 ==
LOC: B2S 19:08
PROVIDERS: ADMIT Psychiatry & Neurology Psychiatry; ATTEND Psychiatry & Neurology Psychiatry
DX: F25.0 Schizoaffective disorder, bipolar type (principal); F11.20 Opioid dependence, uncomplicated; J44.9 Chronic obstructive pulmonary disease, unspecified; R45.851 Suicidal ideations; D64.9 Anemia, unspecified; E03.9 Hypothyroidism, unspecified; F41.9 Anxiety disorder, unspecified; I10 Essential (primary) hypertension; Z59.0 Homelessness; Z81.8 Family history of other mental and behavioral disorders; Z91.5 Personal history of self-harm
CPT/HCPCS: 83036; 84439; 84443; 87081

== ENCOUNTER 2018-07-29 16:55 | Emergency (ER) | payer MEDICAID, OTHER ==
[~2018-07-29] VITALS: Ht 177.8 cm; Wt 77.3 kg
[~2018-07-29 16:55] MED LIST changes: -QUET200T PO
[2018-07-29 17:15] VITALS: BP 126/81
== END 2018-07-29 18:00 | disposition home or self-care (01) ==
LOC: EMS 16:56
DX: S00.83XA Contusion of other part of head, initial encounter (principal); S80.211A Abrasion, right knee, initial encounter; F10.229 Alcohol dependence with intoxication, unspecified; F25.9 Schizoaffective disorder, unspecified; F11.90 Opioid use, unspecified, uncomplicated; F17.210 Nicotine dependence, cigarettes, uncomplicated; F31.9 Bipolar disorder, unspecified; J44.9 Chronic obstructive pulmonary disease, unspecified; K21.9 Gastro-esophageal reflux disease without esophagitis; I10 Essential (primary) hypertension; E03.9 Hypothyroidism, unspecified; N28.9 Disorder of kidney and ureter, unspecified; Z98.890 Other specified postprocedural states; Z59.0 Homelessness; Z79.899 Other long term (current) drug therapy; Y90.1 Blood alcohol level of 20-39 mg/100 ml; W10.1XXA Fall (on)(from) sidewalk curb, initial encounter; Y93.89 Activity, other specified; Y92.89 Other specified places as the place of occurrence of the external cause; Y99.8 Other external cause status
CPT/HCPCS: 99283; 99406

== ENCOUNTER 2018-08-17 21:23 | Emergency (ER) | payer OTHER ==
[~2018-08-17] VITALS: Ht 188 cm; Wt 79.5 kg
[2018-08-17 22:20] LABS: BASOPHILS % (AUTO) 0.7 % (0.0-2.0); EOSINOPHILS % (AUTO) 1.6 % (1.0-6.0); HEMATOCRIT 33.5 % (41-53); HEMOGLOBIN 11.1 g/dL (13.5-17.5); LYMPHOCYTES # (AUTO) 1.6 K/uL (1.0-4.8); LYMPHOCYTES % (AUTO) 25.8 % (22.0-44.0); MEAN CORPUSCULAR HGB CONC 33.2 G/dL (31.0-37.0); MEAN CORPUSCULAR VOLUME 93 fL (80-100); MONOCYTES % (AUTO) 15.7 % (2.0-9.0); NEUTROPHILS # (AUTO) 3.5 K/uL (1.8-7.7); NEUTROPHILS % (AUTO) 56.2 % (40.0-70.0); PLATELET COUNT (AUTO) 269 K/uL (150-450); RED BLOOD CELL COUNT(AUTO) 3.58 MIL/uL (4.50-5.90)
[2018-08-17 22:27] LABS: ANION GAP 12 mmol/L (8-16); CALCIUM, TOTAL 8.3 mg/dL (8.8-10.5); CARBON DIOXIDE 27 mmol/L (22-29); CHLORIDE 97 mmol/L (98-107); CREATININE 0.89 mg/dL (0.60-1.30); GLOMERULAR FILTR. RATE CALC > 60 mL/min (>60); GLUCOSE,RANDOM 108 mg/dL (70-110); SODIUM SERUM 136 mmol/L (136-145); UREA NITROGEN, BLOOD 12 mg/dL (7-18)
[2018-08-17 22:34] LABS: ALANINE AMINOTRANSFERASE 26 U/L (12-78); ALBUMIN 2.9 g/dL (3.4-5.0); ALKALINE PHOSPHATASE 129 U/L (46-116); ASPARTATE AMINOTRANSFERASE 42 U/L (15-37); BILIRUBIN,TOTAL 0.2 mg/dL (0.1-1.0); TOTAL PROTEIN, SERUM 6.7 g/dL (6.4-8.2)
[2018-08-18 00:25] VITALS: BP 125/72
[2018-08-23] MEDS ORDERED: QUET200T29 PO (16:37)
[2018-08-23] MEDS ORDERED: ACAM333T7 PO (16:37)
[2018-08-23] MEDS ORDERED: FLUO-191 PO (16:37)
[2018-08-23] MEDS ORDERED: FLUT1BLS IH (22:22)
[2018-08-23] MEDS ORDERED: AMOX1TAB16 PO (22:22)
[2018-08-23] MEDS ORDERED: MULT-1239 PO (22:24)
[2018-08-23] MEDS ORDERED: FOLI1 PO (22:24)
[2018-09-12] MEDS ORDERED: LEVO75 PO (08:25)
[2018-09-12] MEDS ORDERED: BUPR-93 PO (08:25)
[2018-09-12] MEDS ORDERED: QUET200T PO (08:25)
[2018-09-12] MEDS ORDERED: FLUT1AER IH (08:25)
== END 2018-08-18 00:57 | disposition home or self-care (01) ==
LOC: EMS 21:23
DX: J44.9 Chronic obstructive pulmonary disease, unspecified (principal); F11.90 Opioid use, unspecified, uncomplicated; F17.210 Nicotine dependence, cigarettes, uncomplicated; F31.9 Bipolar disorder, unspecified; K21.9 Gastro-esophageal reflux disease without esophagitis; I10 Essential (primary) hypertension; E03.9 Hypothyroidism, unspecified; N28.9 Disorder of kidney and ureter, unspecified; Z98.890 Other specified postprocedural states; Z59.0 Homelessness; Z79.899 Other long term (current) drug therapy

== ENCOUNTER 2018-09-24 08:34 | Emergency (ER) | payer MEDICAID, OTHER ==
[~2018-09-24] VITALS: Ht 188 cm; Wt 77.3 kg
[~2018-09-24 08:34] MED LIST changes: -FLUO-191 PO; +FLUT1AER IH; -LEVO50 PO; +LEVO75 PO; +QUET200T PO; -QUET300T2 PO
[2018-09-24 10:13] LABS: BASOPHILS % (AUTO) 0.7 % (0.0-2.0); EOSINOPHILS % (AUTO) 0.3 % (1.0-6.0); HEMOGLOBIN 11.4 g/dL (13.5-17.5); LYMPHOCYTES # (AUTO) 0.6 K/uL (1.0-4.8); LYMPHOCYTES % (AUTO) 4.1 % (22.0-44.0); MEAN CORPUSCULAR HEMOGLOBIN 30.5 pg (26.0-34.0); MEAN CORPUSCULAR HGB CONC 32.6 G/dL (31.0-37.0); MEAN CORPUSCULAR VOLUME 94 fL (80-100); MONOCYTES % (AUTO) 7.1 % (2.0-9.0); PLATELET COUNT (AUTO) 199 K/uL (150-450); RED BLOOD CELL COUNT(AUTO) 3.74 MIL/uL (4.50-5.90); RED CELL DISTRIBUTION WIDTH 16.4 % (11.5-14.5)
[2018-09-24 10:27] LABS: ANION GAP 2 mmol/L (8-16); CALCIUM, TOTAL 8.6 mg/dL (8.8-10.5); CARBON DIOXIDE 33 mmol/L (22-29); CHLORIDE 107 mmol/L (98-107); CREATININE 1.08 mg/dL (0.60-1.30); GLOMERULAR FILTR. RATE CALC > 60 mL/min (>60); GLUCOSE,RANDOM 98 mg/dL (70-110); NEUTROPHILS % (AUTO) 87.8 % (40.0-70.0); POTASSIUM 4.5 mmol/L (3.5-5.1); SODIUM SERUM 142 mmol/L (136-145); UREA NITROGEN, BLOOD 14 mg/dL (7-18)
[2018-09-24 10:32] LABS: ALANINE AMINOTRANSFERASE 25 U/L (12-78); ALBUMIN 3.2 g/dL (3.4-5.0); ALKALINE PHOSPHATASE 95 U/L (46-116); ASPARTATE AMINOTRANSFERASE 33 U/L (15-37); BILIRUBIN,TOTAL 0.2 mg/dL (0.1-1.0); TOTAL PROTEIN, SERUM 6.7 g/dL (6.4-8.2)
[2018-09-24 10:53] LABS: B-TYPE NATRIURETIC PEPTIDE 84 pg/mL (0-100)
[2018-09-24 11:15] LABS: AMPHET/METH SCREEN,URINE NEGATIVE (NEGATIVE); BARBITURATE SCREEN, URINE NEGATIVE (NEGATIVE); BENZODIAZEPINES SCREEN,URINE POSITIVE (NEGATIVE); CANNABINOID SCREEN,URINE NEGATIVE (NEGATIVE); COCAINE SCREEN,URINE NEGATIVE (NEGATIVE); METHADONE SCREEN, URINE POSITIVE (NEGATIVE); OPIATE SCREEN,URINE NEGATIVE (NEGATIVE)
[2018-09-24 11:16] LABS: PHENCYCLIDINE SCREEN,URINE NEGATIVE (NEGATIVE)
[2018-09-24 13:48] VITALS: BP 127/90
== END 2018-09-24 13:56 | disposition home or self-care (01) ==
LOC: EMS 08:36
DX: J44.9 Chronic obstructive pulmonary disease, unspecified (principal); M54.5 Low back pain; F31.9 Bipolar disorder, unspecified; K21.9 Gastro-esophageal reflux disease without esophagitis; I10 Essential (primary) hypertension; E03.9 Hypothyroidism, unspecified; F20.9 Schizophrenia, unspecified; F17.210 Nicotine dependence, cigarettes, uncomplicated; F11.90 Opioid use, unspecified, uncomplicated; Z59.0 Homelessness; W18.30XA Fall on same level, unspecified, initial encounter; Y93.89 Activity, other specified; Y92.89 Other specified places as the place of occurrence of the external cause; Y99.8 Other external cause status
CPT/HCPCS: 36415; 70450; 70480; 71045; 80053; 80307; 83880; 84484; 85025; 93005; 99285; G0480

== ENCOUNTER 2018-11-02 21:53 | Inpatient (IN) | payer MEDICAID ==
[~2018-11-02] VITALS: Ht 188 cm; Wt 80.9 kg
[2018-11-02 20:20] VITALS: BP 152/71
[~2018-11-02 21:53] MED LIST changes: +ACAM333T7 PO; +BUPR-47 PO; -FLUT1AER IH; +FOLI1 PO; +GABA-529 PO; +GABA-531 PO; +GABAPENTIN 400 MG CAPSULE PO PRN; +MULT-1203 PO; +QUET300T18 PO; +THIA100T67 PO; +ZOLPIDEM TARTRATE 10 MG TABLET PO PRN
[2018-11-02] MEDS: QUEtiapine FUMARATE 300 MG TABLET PO SCH (22:23)
[2018-11-02] MEDS: ACAMPROSATE CALCIUM 333 MG DR TABLET PO SCH (22:24)
[2018-11-02] MEDS: GABAPENTIN 300 MG CAPSULE PO SCH (22:24)
[2018-11-02 22:43] LABS: BASOPHILS % (AUTO) 0.2 % (0.0-2.0); EOSINOPHILS % (AUTO) 2.6 % (1.0-6.0); HEMATOCRIT 34.4 % (41-53); HEMOGLOBIN 11.3 g/dL (13.5-17.5); LYMPHOCYTES # (AUTO) 0.9 K/uL (1.0-4.8); LYMPHOCYTES % (AUTO) 7.8 % (22.0-44.0); MEAN CORPUSCULAR HEMOGLOBIN 29.4 pg (26.0-34.0); MEAN CORPUSCULAR HGB CONC 32.8 G/dL (31.0-37.0); MEAN CORPUSCULAR VOLUME 90 fL (80-100); MONOCYTES % (AUTO) 9.3 % (2.0-9.0); NEUTROPHILS # (AUTO) 8.8 K/uL (1.8-7.7); NEUTROPHILS % (AUTO) 80.1 % (40.0-70.0); PLATELET COUNT (AUTO) 269 K/uL (150-450); RED BLOOD CELL COUNT(AUTO) 3.84 MIL/uL (4.50-5.90); RED CELL DISTRIBUTION WIDTH 15.7 % (11.5-14.5)
[2018-11-02 22:54] LABS: ANION GAP 10 mmol/L (8-16); CALCIUM, TOTAL 8.8 mg/dL (8.8-10.5); CARBON DIOXIDE 30 mmol/L (22-29); CHLORIDE 97 mmol/L (98-107); CREATININE 0.98 mg/dL (0.60-1.30); GLOMERULAR FILTR. RATE CALC > 60 mL/min (>60); GLUCOSE,RANDOM 89 mg/dL (70-110); POTASSIUM 3.8 mmol/L (3.5-5.1); SODIUM SERUM 137 mmol/L (136-145); UREA NITROGEN, BLOOD 18 mg/dL (7-18)
[2018-11-02 23:00] LABS: ALANINE AMINOTRANSFERASE 20 U/L (12-78); ALBUMIN 3.2 g/dL (3.4-5.0); ALKALINE PHOSPHATASE 84 U/L (46-116); ASPARTATE AMINOTRANSFERASE 20 U/L (15-37); BILIRUBIN,TOTAL 0.2 mg/dL (0.1-1.0); TOTAL PROTEIN, SERUM 7.4 g/dL (6.4-8.2)
[2018-11-02] MEDS ORDERED: -PHARMACY VACCINE NOTE- MISC ONE (23:15)
[2018-11-03 01:24] LABS: AMPHET/METH SCREEN,URINE NEGATIVE (NEGATIVE); BARBITURATE SCREEN, URINE NEGATIVE (NEGATIVE); BENZODIAZEPINES SCREEN,URINE POSITIVE (NEGATIVE); CANNABINOID SCREEN,URINE POSITIVE (NEGATIVE); COCAINE SCREEN,URINE NEGATIVE (NEGATIVE); METHADONE SCREEN, URINE POSITIVE (NEGATIVE); OPIATE SCREEN,URINE NEGATIVE (NEGATIVE); PHENCYCLIDINE SCREEN,URINE NEGATIVE (NEGATIVE)
[2018-11-03 03:15] LABS: BILIRUBIN,URINE NEGATIVE (NEGATIVE); GLUCOSE, URINE (UA) NEGATIVE (NEGATIVE); KETONES,URINE NEGATIVE (NEGATIVE); LEUKOCYTE ESTERASE ,URINE NEGATIVE (NEGATIVE); NITRATE,URINE NEGATIVE (NEGATIVE); OCCULT BLOOD,URINE NEGATIVE (NEGATIVE); PH,URINE 5.5 (5.0-8.0); PROTEIN,URINE NEGATIVE (NEGATIVE)
[2018-11-03 03:17] LABS: APPEARANCE,URINE CLEAR (CLEAR)
[2018-11-03 05:13] VITALS: BP 132/71
[2018-11-03] MEDS: LEVOTHYROXINE SODIUM 75 MCG TABLET PO SCH (06:59)
[2018-11-03 08:00] VITALS: BP 130/68
[2018-11-03] MEDS: FOLIC ACID 1 MG TABLET PO SCH (10:25)
[2018-11-03] MEDS: AmLODIPine BESYLATE 5 MG TABLET PO SCH (10:25)
[2018-11-03] MEDS: GABAPENTIN 300 MG CAPSULE PO SCH ×4 (10:25→20:11)
[2018-11-03] MEDS: MULTIVITAMINS WITH MINERALS, THERAPEUTIC TABLET PO SCH (10:25)
[2018-11-03] MEDS: ACAMPROSATE CALCIUM 333 MG DR TABLET PO SCH ×3 (10:26→16:28)
[2018-11-03] MEDS: THIAMINE HCL 100 MG TABLET PO SCH (10:30)
[2018-11-03] MEDS: QUEtiapine FUMARATE 100 MG TABLET PO PRN (10:31)
[2018-11-03 16:30] VITALS: BP 116/60
[2018-11-03] MEDS ORDERED: ACETAMINOPHEN 325 MG TABLET PO PRN (16:30)
[2018-11-03] MEDS ORDERED: LOPERAMIDE HCL 2 MG CAPSULE PO PRN (16:30)
[2018-11-03] MEDS ORDERED: PROMETHAZINE HCL 25 MG TABLET PO PRN (16:30)
[2018-11-03] MEDS ORDERED: MAG HYDROX/AL HYDROX/SIMETH ES 30 ML SUSPENSION UDCUP PO PRN (16:30)
[2018-11-03] MEDS ORDERED: MAGNESIUM HYDROXIDE SUSPENSION 30 ML UDCUP PO PRN (16:30)
[2018-11-03] MEDS: METHADONE HCL 10 MG/5 ML SOLUTION ORAL.SYG PO SCH (17:50)
[2018-11-03] MEDS: QUEtiapine FUMARATE 300 MG TABLET PO SCH (20:11)
[2018-11-04] MEDS: LEVOTHYROXINE SODIUM 75 MCG TABLET PO SCH (06:42)
[2018-11-04] MEDS ORDERED: METHADONE HCL 10 MG/5 ML SOLUTION ORAL.SYG PO SCH (09:00)
[2018-11-04 09:25] VITALS: BP 100/74
[2018-11-04 09:55] VITALS: BP 126/64
[2018-11-04] MEDS: MULTIVITAMINS WITH MINERALS, THERAPEUTIC TABLET PO SCH (09:58)
[2018-11-04] MEDS: FOLIC ACID 1 MG TABLET PO SCH (09:58)
[2018-11-04] MEDS: AmLODIPine BESYLATE 5 MG TABLET PO SCH (09:58)
[2018-11-04] MEDS: THIAMINE HCL 100 MG TABLET PO SCH (09:58)
[2018-11-04] MEDS: GABAPENTIN 300 MG CAPSULE PO SCH ×4 (09:59→22:00)
[2018-11-04] MEDS: METHADONE HCL 10 MG/5 ML SOLUTION ORAL.SYG PO SCH (10:00)
[2018-11-04] MEDS: ACAMPROSATE CALCIUM 333 MG DR TABLET PO SCH ×3 (10:00→16:05)
[2018-11-04] MEDS: QUEtiapine FUMARATE 100 MG TABLET PO PRN (16:41)
[2018-11-04 18:44] VITALS: BP 130/75
[2018-11-04] MEDS: QUEtiapine FUMARATE 300 MG TABLET PO SCH (22:00)
[2018-11-05] MEDS: QUEtiapine FUMARATE 100 MG TABLET PO PRN ×2 (02:24→16:28)
[2018-11-05] MEDS ORDERED: ALBUTEROL SULFATE HFA 90 MCG/PUFF 8 GM INHALER IH PRN (03:00)
[2018-11-05 03:02] VITALS: BP 146/94
[2018-11-05 03:30] VITALS: BP 133/79
[2018-11-05 03:36] VITALS: BP 133/79
[2018-11-05] MEDS: LEVOTHYROXINE SODIUM 75 MCG TABLET PO SCH (06:37)
[2018-11-05 08:49] VITALS: BP 111/62
[2018-11-05 10:20] VITALS: BP 133/80
[2018-11-05] MEDS: ACAMPROSATE CALCIUM 333 MG DR TABLET PO SCH ×3 (10:23→16:27)
[2018-11-05] MEDS: MULTIVITAMINS WITH MINERALS, THERAPEUTIC TABLET PO SCH (10:24)
[2018-11-05] MEDS: THIAMINE HCL 100 MG TABLET PO SCH (10:24)
[2018-11-05] MEDS: GABAPENTIN 300 MG CAPSULE PO SCH ×4 (10:24→20:17)
[2018-11-05] MEDS: AmLODIPine BESYLATE 5 MG TABLET PO SCH (10:24)
[2018-11-05] MEDS: FOLIC ACID 1 MG TABLET PO SCH (10:24)
[2018-11-05] MEDS: METHADONE HCL 10 MG/5 ML SOLUTION ORAL.SYG PO SCH (10:25)
[2018-11-05 16:00] VITALS: BP 112/68
[2018-11-05] MEDS: PredniSONE 10 MG TABLET PO SCH (19:15)
[2018-11-05] MEDS: TIOTROPIUM BROMIDE 18 MCG/INH HANDIHALER [5] IH SCH (19:15)
[2018-11-05] MEDS ORDERED: IOVERSOL 350 MG/ML 150 ML VIAL ONE (19:19)
[2018-11-05] MEDS: QUEtiapine FUMARATE 300 MG TABLET PO SCH (20:17)
[2018-11-05] MEDS: BUDESONIDE 0.5 MG/2 ML NEB SOLUTION NEB SCH (21:00)
[2018-11-06 00:28] VITALS: BP 124/74
[2018-11-06] MEDS: LEVOTHYROXINE SODIUM 75 MCG TABLET PO SCH (06:38)
[2018-11-06 06:41] LABS: BASOPHILS % (AUTO) 0.1 % (0.0-2.0); EOSINOPHILS % (AUTO) 0 % (1.0-6.0); HEMATOCRIT 32.2 % (41-53); HEMOGLOBIN 10.6 g/dL (13.5-17.5); LYMPHOCYTES % (AUTO) 7.5 % (22.0-44.0); MEAN CORPUSCULAR HEMOGLOBIN 29.2 pg (26.0-34.0); MEAN CORPUSCULAR HGB CONC 32.9 G/dL (31.0-37.0); MEAN CORPUSCULAR VOLUME 89 fL (80-100); MONOCYTES # (AUTO) 0.6 K/uL (0.1-1.0); MONOCYTES % (AUTO) 4.3 % (2.0-9.0); NEUTROPHILS # (AUTO) 11.7 K/uL (1.8-7.7); PLATELET COUNT (AUTO) 320 K/uL (150-450); RED BLOOD CELL COUNT(AUTO) 3.63 MIL/uL (4.50-5.90); RED CELL DISTRIBUTION WIDTH 15.2 % (11.5-14.5)
[2018-11-06 07:14] LABS: ALANINE AMINOTRANSFERASE 16 U/L (12-78); ALBUMIN 2.5 g/dL (3.4-5.0); ALKALINE PHOSPHATASE 79 U/L (46-116); ANION GAP 7 mmol/L (8-16); ASPARTATE AMINOTRANSFERASE 13 U/L (15-37); BILIRUBIN,TOTAL 0.3 mg/dL (0.1-1.0); CALCIUM, TOTAL 9.2 mg/dL (8.8-10.5); CARBON DIOXIDE 30 mmol/L (22-29); CHLORIDE 101 mmol/L (98-107); CREATININE 0.75 mg/dL (0.60-1.30); GLOMERULAR FILTR. RATE CALC > 60 mL/min (>60); GLUCOSE,RANDOM 123 mg/dL (70-110); PHOSPHORUS 3.6 mg/dL (2.5-4.9); POTASSIUM 4.3 mmol/L (3.5-5.1); SODIUM SERUM 138 mmol/L (136-145); THYROID STIMULATING HORMONE 2.82 uIU/mL (0.36-3.74); TOTAL PROTEIN, SERUM 6.8 g/dL (6.4-8.2); UREA NITROGEN, BLOOD 17 mg/dL (7-18)
[2018-11-06 07:16] LABS: NEUTROPHILS % (AUTO) 88.1 % (40.0-70.0)
[2018-11-06 07:18] LABS: B-TYPE NATRIURETIC PEPTIDE 243 pg/mL (0-100)
[2018-11-06 08:30] VITALS: BP 143/73
[2018-11-06] MEDS: METHADONE HCL 10 MG/5 ML SOLUTION ORAL.SYG PO SCH (08:32)
[2018-11-06] MEDS: GABAPENTIN 300 MG CAPSULE PO SCH ×4 (08:34→20:08)
[2018-11-06] MEDS: MULTIVITAMINS WITH MINERALS, THERAPEUTIC TABLET PO SCH (08:34)
[2018-11-06] MEDS: TIOTROPIUM BROMIDE 18 MCG/INH HANDIHALER [5] IH SCH (08:34)
[2018-11-06] MEDS: THIAMINE HCL 100 MG TABLET PO SCH (08:35)
[2018-11-06] MEDS: ACAMPROSATE CALCIUM 333 MG DR TABLET PO SCH ×3 (08:35→16:31)
[2018-11-06] MEDS: BENZONATATE 100 MG CAPSULE PO SCH ×3 (08:35→16:31)
[2018-11-06] MEDS: PredniSONE 10 MG TABLET PO SCH (08:35)
[2018-11-06] MEDS: AmLODIPine BESYLATE 5 MG TABLET PO SCH (08:35)
[2018-11-06] MEDS: FOLIC ACID 1 MG TABLET PO SCH (08:35)
[2018-11-06] MEDS: BUDESONIDE 0.5 MG/2 ML NEB SOLUTION NEB SCH ×2 (10:02→21:28)
[2018-11-06 16:28] VITALS: BP 120/73
[2018-11-06] MEDS ORDERED: QUET300T2 PO (18:31)
[2018-11-06] MEDS: QUEtiapine FUMARATE 200 MG TABLET PO SCH (20:07)
[2018-11-07] MEDS: LEVOTHYROXINE SODIUM 75 MCG TABLET PO SCH (06:45)
[2018-11-07] MEDS: FOLIC ACID 1 MG TABLET PO SCH (08:34)
[2018-11-07] MEDS: THIAMINE HCL 100 MG TABLET PO SCH (08:34)
[2018-11-07] MEDS: AmLODIPine BESYLATE 5 MG TABLET PO SCH (08:34)
[2018-11-07] MEDS: MULTIVITAMINS WITH MINERALS, THERAPEUTIC TABLET PO SCH (08:34)
[2018-11-07] MEDS: GABAPENTIN 300 MG CAPSULE PO SCH ×2 (08:35→12:34)
[2018-11-07] MEDS: PredniSONE 10 MG TABLET PO SCH (08:35)
[2018-11-07] MEDS: ACAMPROSATE CALCIUM 333 MG DR TABLET PO SCH ×3 (08:36→16:10)
[2018-11-07] MEDS: BENZONATATE 100 MG CAPSULE PO SCH ×3 (08:36→16:10)
[2018-11-07] MEDS: METHADONE HCL 10 MG/5 ML SOLUTION ORAL.SYG PO SCH (08:43)
[2018-11-07] MEDS: BUDESONIDE 0.5 MG/2 ML NEB SOLUTION NEB SCH ×2 (10:32→21:00)
[2018-11-07] MEDS: TIOTROPIUM BROMIDE 18 MCG/INH HANDIHALER [5] IH SCH (10:34)
[2018-11-07 16:00] VITALS: BP 132/89
[2018-11-07] MEDS: GABAPENTIN 400 MG CAPSULE PO SCH ×2 (16:10→20:25)
[2018-11-07] MEDS: QUEtiapine FUMARATE 200 MG TABLET PO SCH (20:26)
[2018-11-08 04:50] VITALS: BP 133/81
[2018-11-08] MEDS: LEVOTHYROXINE SODIUM 75 MCG TABLET PO SCH (06:07)
[2018-11-08 08:49] VITALS: BP 133/85
[2018-11-08] MEDS: BUDESONIDE 0.5 MG/2 ML NEB SOLUTION NEB SCH ×2 (09:00→21:00)
[2018-11-08] MEDS: TIOTROPIUM BROMIDE 18 MCG/INH HANDIHALER [5] IH SCH (10:22)
[2018-11-08] MEDS: GABAPENTIN 400 MG CAPSULE PO SCH ×4 (10:23→20:45)
[2018-11-08] MEDS: THIAMINE HCL 100 MG TABLET PO SCH (10:24)
[2018-11-08] MEDS: AmLODIPine BESYLATE 5 MG TABLET PO SCH (10:24)
[2018-11-08] MEDS: FOLIC ACID 1 MG TABLET PO SCH (10:24)
[2018-11-08] MEDS: PredniSONE 10 MG TABLET PO SCH (10:25)
[2018-11-08] MEDS: BENZONATATE 100 MG CAPSULE PO SCH ×3 (10:26→16:32)
[2018-11-08] MEDS: MULTIVITAMINS WITH MINERALS, THERAPEUTIC TABLET PO SCH (10:29)
[2018-11-08] MEDS: ACAMPROSATE CALCIUM 333 MG DR TABLET PO SCH ×3 (10:30→16:31)
[2018-11-08] MEDS: METHADONE HCL 10 MG/5 ML SOLUTION ORAL.SYG PO SCH (10:31)
[2018-11-08] MEDS: OXYGEN THERAPY IH SCH (15:22)
[2018-11-08 16:14] VITALS: BP 108/74
[2018-11-08] MEDS: QUEtiapine FUMARATE 200 MG TABLET PO SCH (20:45)
[2018-11-09 00:16] VITALS: BP 106/70
[2018-11-09] MEDS ORDERED: IOVERSOL 350 MG/ML 100 ML VIAL ONE (04:28)
[2018-11-09] MEDS ORDERED: SODIUM CHLORIDE 0.9% 100 ML ONE (04:28)
[2018-11-09] MEDS: LEVOTHYROXINE SODIUM 75 MCG TABLET PO SCH (06:53)
[2018-11-09 08:26] VITALS: BP 124/95
[2018-11-09] MEDS: MULTIVITAMINS WITH MINERALS, THERAPEUTIC TABLET PO SCH (10:51)
[2018-11-09] MEDS: AmLODIPine BESYLATE 5 MG TABLET PO SCH (10:51)
[2018-11-09] MEDS: GABAPENTIN 400 MG CAPSULE PO SCH ×4 (10:51→20:28)
[2018-11-09] MEDS: FOLIC ACID 1 MG TABLET PO SCH (10:51)
[2018-11-09] MEDS: THIAMINE HCL 100 MG TABLET PO SCH (10:51)
[2018-11-09] MEDS: BENZONATATE 100 MG CAPSULE PO SCH ×3 (10:52→16:40)
[2018-11-09] MEDS: BuPROPion HCL XL 150 MG ER TABLET PO SCH (10:52)
[2018-11-09] MEDS: ACAMPROSATE CALCIUM 333 MG DR TABLET PO SCH ×3 (10:52→16:40)
[2018-11-09] MEDS: PredniSONE 10 MG TABLET PO SCH (10:53)
[2018-11-09] MEDS: METHADONE HCL 10 MG/5 ML SOLUTION ORAL.SYG PO SCH (10:58)
[2018-11-09] MEDS: TIOTROPIUM BROMIDE 18 MCG/INH HANDIHALER [5] IH SCH (12:49)
[2018-11-09] MEDS: BUDESONIDE 0.5 MG/2 ML NEB SOLUTION NEB SCH ×2 (13:40→21:00)
[2018-11-09 16:30] VITALS: BP 110/73
[2018-11-09] MEDS ORDERED: QUEtiapine FUMARATE 200 MG TABLET PO SCH (21:00)
[2018-11-10] MEDS: LEVOTHYROXINE SODIUM 75 MCG TABLET PO SCH (06:40)
[2018-11-10 08:02] VITALS: BP 113/72
[2018-11-10] MEDS: BUDESONIDE 0.5 MG/2 ML NEB SOLUTION NEB SCH ×2 (09:40→21:00)
[2018-11-10] MEDS: AmLODIPine BESYLATE 5 MG TABLET PO SCH (09:51)
[2018-11-10] MEDS: TIOTROPIUM BROMIDE 18 MCG/INH HANDIHALER [5] IH SCH (09:51)
[2018-11-10] MEDS: BuPROPion HCL XL 150 MG ER TABLET PO SCH (09:51)
[2018-11-10] MEDS: ACAMPROSATE CALCIUM 333 MG DR TABLET PO SCH ×3 (09:51→17:06)
[2018-11-10] MEDS: THIAMINE HCL 100 MG TABLET PO SCH (09:51)
[2018-11-10] MEDS: FOLIC ACID 1 MG TABLET PO SCH (09:52)
[2018-11-10] MEDS: GABAPENTIN 400 MG CAPSULE PO SCH ×4 (09:52→20:20)
[2018-11-10] MEDS: PredniSONE 10 MG TABLET PO SCH (09:52)
[2018-11-10] MEDS: BENZONATATE 100 MG CAPSULE PO SCH ×3 (09:52→17:06)
[2018-11-10] MEDS: MULTIVITAMINS WITH MINERALS, THERAPEUTIC TABLET PO SCH (09:52)
[2018-11-10] MEDS: METHADONE HCL 10 MG/5 ML SOLUTION ORAL.SYG PO SCH (10:01)
[2018-11-10 17:00] VITALS: BP 92/70
[2018-11-10 17:05] VITALS: BP 101/78
[2018-11-10] MEDS: QUEtiapine FUMARATE 200 MG TABLET PO SCH (20:21)
[2018-11-11 00:30] VITALS: BP 116/77
[2018-11-11] MEDS: LEVOTHYROXINE SODIUM 75 MCG TABLET PO SCH (06:46)
[2018-11-11 08:02] VITALS: BP 123/81
[2018-11-11] MEDS: BUDESONIDE 0.5 MG/2 ML NEB SOLUTION NEB SCH ×2 (09:00→22:48)
[2018-11-11] MEDS: ACAMPROSATE CALCIUM 333 MG DR TABLET PO SCH ×3 (09:25→16:15)
[2018-11-11] MEDS: GABAPENTIN 400 MG CAPSULE PO SCH ×4 (09:26→20:50)
[2018-11-11] MEDS: BuPROPion HCL XL 150 MG ER TABLET PO SCH (09:26)
[2018-11-11] MEDS: AmLODIPine BESYLATE 5 MG TABLET PO SCH (09:26)
[2018-11-11] MEDS: THIAMINE HCL 100 MG TABLET PO SCH (09:26)
[2018-11-11] MEDS: PredniSONE 20 MG TABLET PO SCH (09:26)
[2018-11-11] MEDS: FOLIC ACID 1 MG TABLET PO SCH (09:26)
[2018-11-11] MEDS: BENZONATATE 100 MG CAPSULE PO SCH ×3 (09:27→16:15)
[2018-11-11] MEDS: MULTIVITAMINS WITH MINERALS, THERAPEUTIC TABLET PO SCH (09:27)
[2018-11-11] MEDS: TIOTROPIUM BROMIDE 18 MCG/INH HANDIHALER [5] IH SCH (09:28)
[2018-11-11] MEDS: METHADONE HCL 10 MG/5 ML SOLUTION ORAL.SYG PO SCH (09:28)
[2018-11-11 17:30] VITALS: BP 121/81
[2018-11-11] MEDS: QUEtiapine FUMARATE 200 MG TABLET PO SCH (20:51)
[2018-11-12] MEDS: LEVOTHYROXINE SODIUM 75 MCG TABLET PO SCH (06:38)
[2018-11-12 08:33] VITALS: BP 101/71
[2018-11-12] MEDS: BUDESONIDE 0.5 MG/2 ML NEB SOLUTION NEB SCH ×2 (09:00→21:00)
[2018-11-12] MEDS: METHADONE HCL 10 MG/5 ML SOLUTION ORAL.SYG PO SCH (09:57)
[2018-11-12] MEDS: PredniSONE 20 MG TABLET PO SCH (09:59)
[2018-11-12] MEDS: GABAPENTIN 400 MG CAPSULE PO SCH ×4 (09:59→20:33)
[2018-11-12] MEDS: BENZONATATE 100 MG CAPSULE PO SCH ×3 (09:59→16:22)
[2018-11-12] MEDS: FOLIC ACID 1 MG TABLET PO SCH (09:59)
[2018-11-12] MEDS: MULTIVITAMINS WITH MINERALS, THERAPEUTIC TABLET PO SCH (09:59)
[2018-11-12] MEDS: AmLODIPine BESYLATE 5 MG TABLET PO SCH (09:59)
[2018-11-12] MEDS: BuPROPion HCL XL 150 MG ER TABLET PO SCH (10:00)
[2018-11-12] MEDS: THIAMINE HCL 100 MG TABLET PO SCH (10:00)
[2018-11-12] MEDS: ACAMPROSATE CALCIUM 333 MG DR TABLET PO SCH ×3 (10:00→16:22)
[2018-11-12] MEDS: TIOTROPIUM BROMIDE 18 MCG/INH HANDIHALER [5] IH SCH (10:01)
[2018-11-12 17:00] VITALS: BP 116/60
[2018-11-12] MEDS: QUEtiapine FUMARATE 200 MG TABLET PO SCH (20:33)
[2018-11-13] MEDS: LEVOTHYROXINE SODIUM 75 MCG TABLET PO SCH (06:58)
[2018-11-13] MEDS: THIAMINE HCL 100 MG TABLET PO SCH (09:14)
[2018-11-13] MEDS: FOLIC ACID 1 MG TABLET PO SCH (09:15)
[2018-11-13] MEDS: GABAPENTIN 400 MG CAPSULE PO SCH ×3 (09:15→20:22)
[2018-11-13] MEDS: BuPROPion HCL XL 150 MG ER TABLET PO SCH (09:15)
[2018-11-13] MEDS: PredniSONE 20 MG TABLET PO SCH (09:16)
[2018-11-13] MEDS: AmLODIPine BESYLATE 5 MG TABLET PO SCH (09:16)
[2018-11-13] MEDS: MULTIVITAMINS WITH MINERALS, THERAPEUTIC TABLET PO SCH (09:17)
[2018-11-13] MEDS: TIOTROPIUM BROMIDE 18 MCG/INH HANDIHALER [5] IH SCH (09:18)
[2018-11-13] MEDS: ACAMPROSATE CALCIUM 333 MG DR TABLET PO SCH ×2 (09:19→16:36)
[2018-11-13] MEDS: BENZONATATE 100 MG CAPSULE PO SCH ×2 (09:20→16:36)
[2018-11-13] MEDS: METHADONE HCL 10 MG/5 ML SOLUTION ORAL.SYG PO SCH (09:30)
[2018-11-13] MEDS: BUDESONIDE 0.5 MG/2 ML NEB SOLUTION NEB SCH ×2 (11:57→21:30)
[2018-11-13 14:51] VITALS: BP 122/80
[2018-11-13 19:24] VITALS: BP 92/68
[2018-11-13] MEDS: QUEtiapine FUMARATE 200 MG TABLET PO SCH (20:22)
[2018-11-14] MEDS: LEVOTHYROXINE SODIUM 75 MCG TABLET PO SCH (07:21)
[2018-11-14] MEDS: OXYGEN THERAPY IH SCH (08:00)
[2018-11-14] MEDS: MULTIVITAMINS WITH MINERALS, THERAPEUTIC TABLET PO SCH (08:07)
[2018-11-14] MEDS: FOLIC ACID 1 MG TABLET PO SCH (08:07)
[2018-11-14] MEDS: BuPROPion HCL XL 150 MG ER TABLET PO SCH (08:07)
[2018-11-14] MEDS: THIAMINE HCL 100 MG TABLET PO SCH (08:07)
[2018-11-14] MEDS: GABAPENTIN 400 MG CAPSULE PO SCH ×4 (08:08→21:00)
[2018-11-14] MEDS: PredniSONE 20 MG TABLET PO SCH (08:08)
[2018-11-14] MEDS: ACAMPROSATE CALCIUM 333 MG DR TABLET PO SCH ×3 (08:09→16:45)
[2018-11-14] MEDS: TIOTROPIUM BROMIDE 18 MCG/INH HANDIHALER [5] IH SCH (08:09)
[2018-11-14] MEDS: BENZONATATE 100 MG CAPSULE PO SCH ×3 (08:09→16:45)
[2018-11-14 08:30] VITALS: BP 108/75
[2018-11-14] MEDS: AmLODIPine BESYLATE 5 MG TABLET PO SCH (08:31)
[2018-11-14] MEDS: BUDESONIDE 0.5 MG/2 ML NEB SOLUTION NEB SCH ×2 (09:00→21:15)
[2018-11-14] MEDS: METHADONE HCL 10 MG/5 ML SOLUTION ORAL.SYG PO SCH (13:47)
[2018-11-14] MEDS ORDERED: GABA-533 PO (15:59)
[2018-11-14] MEDS ORDERED: BUPR-47 PO (15:59)
[2018-11-14] MEDS ORDERED: ACAM333T7 PO (15:59)
[2018-11-14] MEDS ORDERED: QUET200T29 PO (15:59)
[2018-11-14 16:51] VITALS: BP 103/70
[2018-11-14] MEDS: QUEtiapine FUMARATE 200 MG TABLET PO SCH (21:00)
[2018-11-15 06:38] VITALS: BP 113/77
[2018-11-15] MEDS: LEVOTHYROXINE SODIUM 75 MCG TABLET PO SCH (06:51)
[2018-11-15 08:05] VITALS: BP 126/70
[2018-11-15] MEDS: BUDESONIDE 0.5 MG/2 ML NEB SOLUTION NEB SCH (09:00)
[2018-11-15] MEDS: PredniSONE 20 MG TABLET PO SCH (09:44)
[2018-11-15] MEDS: ACAMPROSATE CALCIUM 333 MG DR TABLET PO SCH ×2 (09:44→14:01)
[2018-11-15] MEDS: FOLIC ACID 1 MG TABLET PO SCH (09:47)
[2018-11-15] MEDS: MULTIVITAMINS WITH MINERALS, THERAPEUTIC TABLET PO SCH (09:47)
[2018-11-15] MEDS: GABAPENTIN 400 MG CAPSULE PO SCH ×2 (09:48→14:01)
[2018-11-15] MEDS: THIAMINE HCL 100 MG TABLET PO SCH (09:48)
[2018-11-15] MEDS: BENZONATATE 100 MG CAPSULE PO SCH ×2 (09:48→14:01)
[2018-11-15] MEDS: BuPROPion HCL XL 150 MG ER TABLET PO SCH (09:48)
[2018-11-15] MEDS: AmLODIPine BESYLATE 5 MG TABLET PO SCH (09:48)
[2018-11-15] MEDS: METHADONE HCL 10 MG/5 ML SOLUTION ORAL.SYG PO SCH (09:52)
[2018-11-15] MEDS: TIOTROPIUM BROMIDE 18 MCG/INH HANDIHALER [5] IH SCH (09:55)
[2018-11-15] MEDS ORDERED: TIOT185 IH (11:50)
[2018-11-15] MEDS ORDERED: BENZ-51 PO (11:50)
[2018-11-15] MEDS ORDERED: PRED20 PO (11:50)
[2018-11-15] MEDS ORDERED: GABA-533 PO (11:50)
[2018-11-16] MEDS ORDERED: PredniSONE 10 MG TABLET PO SCH (09:00)
== END 2018-11-15 16:30 | disposition home or self-care (01) | DRG 750 ==
LOC: EMS 21:56 → 3EI 22:30
PROVIDERS: ADMIT Psychiatry & Neurology Psychiatry; ATTEND Psychiatry & Neurology Psychiatry
DX: F25.0 Schizoaffective disorder, bipolar type (principal); J44.1 Chronic obstructive pulmonary disease with (acute) exacerbation; R45.851 Suicidal ideations; E03.9 Hypothyroidism, unspecified; F17.210 Nicotine dependence, cigarettes, uncomplicated; F60.0 Paranoid personality disorder; I10 Essential (primary) hypertension; K21.9 Gastro-esophageal reflux disease without esophagitis; F11.10 Opioid abuse, uncomplicated; F12.10 Cannabis abuse, uncomplicated; Z79.899 Other long term (current) drug therapy; Z91.19 Patient's noncompliance with other medical treatment and regimen
CPT/HCPCS: 71275; 83735; 84100; 84443; 87081; 94640; G0480; J3535; J7050

== ENCOUNTER 2018-11-18 19:22 | Inpatient (IN) | payer MEDICAID ==
[~2018-11-18] VITALS: Ht 188 cm; Wt 78.9 kg
[~2018-11-18 19:22] MED LIST changes: +BENZ-51 PO; -BUPR-93 PO; -GABA-529 PO; -GABA-531 PO; +GABA-533 PO; -GABAPENTIN 400 MG CAPSULE PO PRN; +PRED20 PO; -QUET200T PO; +QUET200T29 PO; -QUET300T18 PO; +TIOT185 IH; -ZOLPIDEM TARTRATE 10 MG TABLET PO PRN
[2018-11-18 20:06] VITALS: BP 138/84
[2018-11-18] MEDS ORDERED: QUEtiapine FUMARATE 100 MG TABLET PO PRN (21:15)
[2018-11-18] MEDS ORDERED: ZOLPIDEM TARTRATE 10 MG TABLET PO PRN (21:15)
[2018-11-18 22:15] VITALS: BP 134/75
[2018-11-19 06:29] VITALS: BP 105/62
[2018-11-19 07:17] LABS: BASOPHILS % (AUTO) 0.4 % (0.0-2.0); EOSINOPHILS % (AUTO) 4.7 % (1.0-6.0); HEMATOCRIT 34.8 % (41-53); HEMOGLOBIN 11.2 g/dL (13.5-17.5); LYMPHOCYTES # (AUTO) 1.7 K/uL (1.0-4.8); LYMPHOCYTES % (AUTO) 19.3 % (22.0-44.0); MEAN CORPUSCULAR HEMOGLOBIN 28.4 pg (26.0-34.0); MEAN CORPUSCULAR HGB CONC 32.2 G/dL (31.0-37.0); MEAN CORPUSCULAR VOLUME 88 fL (80-100); MONOCYTES % (AUTO) 11.4 % (2.0-9.0); NEUTROPHILS # (AUTO) 5.5 K/uL (1.8-7.7); NEUTROPHILS % (AUTO) 64.2 % (40.0-70.0); PLATELET COUNT (AUTO) 290 K/uL (150-450); RED BLOOD CELL COUNT(AUTO) 3.95 MIL/uL (4.50-5.90); RED CELL DISTRIBUTION WIDTH 16.2 % (11.5-14.5)
[2018-11-19 07:49] LABS: ALANINE AMINOTRANSFERASE 19 U/L (12-78); ALBUMIN 2.8 g/dL (3.4-5.0); ALKALINE PHOSPHATASE 80 U/L (46-116); ANION GAP 5 mmol/L (8-16); ASPARTATE AMINOTRANSFERASE 16 U/L (15-37); BILIRUBIN,TOTAL 0.5 mg/dL (0.1-1.0); CALCIUM, TOTAL 8.6 mg/dL (8.8-10.5); CARBON DIOXIDE 32 mmol/L (22-29); CHLORIDE 102 mmol/L (98-107); CHOL/HDL RATIO 2.4 (4.2-7.3); CHOLESTEROL 131 mg/dL (131-200); CREATININE 0.83 mg/dL (0.60-1.30); FREE T4 (FREE THYROXINE) 0.65 ng/dL (0.76-1.46); GLOMERULAR FILTR. RATE CALC > 60 mL/min (>60); GLUCOSE,RANDOM 77 mg/dL (70-110); HDL CHOLESTEROL 55 mg/dL (40-60); LDL CHOL (CALC.) 60 mg/dL (0-130); POTASSIUM 4.3 mmol/L (3.5-5.1); SODIUM SERUM 139 mmol/L (136-145); TRIGLYCERIDES 81 mg/dL (15-150); UREA NITROGEN, BLOOD 22 mg/dL (7-18)
[2018-11-19 08:42] VITALS: BP 104/62
[2018-11-19 13:07] VITALS: BP 125/68
[2018-11-19] MEDS ORDERED: METHADONE HCL 10 MG TABLET PO SCH (14:15)
[2018-11-19 16:43] VITALS: BP 140/64
[2018-11-19] MEDS ORDERED: QUEtiapine FUMARATE 200 MG TABLET PO SCH (21:00)
[2018-11-20 00:56] VITALS: BP 124/82
[2018-11-20] MEDS: LEVOTHYROXINE SODIUM 50 MCG TABLET PO SCH (07:12)
[2018-11-20 08:39] VITALS: BP 109/65
[2018-11-20] MEDS ORDERED: METHADONE HCL 10 MG TABLET PO SCH (09:00)
[2018-11-20] MEDS: BuPROPion HCL XL 150 MG ER TABLET PO SCH (09:12)
[2018-11-20] MEDS: METHADONE HCL 10 MG/5 ML SOLUTION ORAL.SYG PO SCH (09:18)
[2018-11-20] MEDS ORDERED: PRED10 PO (15:23)
[2018-11-20] MEDS ORDERED: PALIPERIDONE PALMITATE 234 MG/1.5 ML SYRINGE IM ONE (15:30)
[2018-11-20] MEDS ORDERED: PALIPERIDONE 1.5 MG ER TABLET PO PRN (15:30)
[2018-11-20 16:03] VITALS: BP 116/78
[2018-11-20] MEDS: ACAMPROSATE CALCIUM 333 MG DR TABLET PO SCH (17:53)
[2018-11-20] MEDS: GABAPENTIN 300 MG CAPSULE PO SCH ×2 (17:57→20:54)
[2018-11-20] MEDS ORDERED: PALIPERIDONE 3 MG ER TABLET PO SCH (21:00)
[2018-11-21 06:11] VITALS: BP 139/83
[2018-11-21] MEDS: LEVOTHYROXINE SODIUM 50 MCG TABLET PO SCH (07:07)
[2018-11-21] MEDS: GABAPENTIN 300 MG CAPSULE PO SCH ×2 (08:30→13:27)
[2018-11-21] MEDS: BuPROPion HCL XL 150 MG ER TABLET PO SCH (08:30)
[2018-11-21] MEDS: ACAMPROSATE CALCIUM 333 MG DR TABLET PO SCH ×3 (08:30→17:19)
[2018-11-21] MEDS: METHADONE HCL 10 MG/5 ML SOLUTION ORAL.SYG PO SCH (08:31)
[2018-11-21 09:04] VITALS: BP 108/66
[2018-11-21] MEDS ORDERED: GuaiFENesin/D-METHORPHAN [SUGAR-FREE] 200-20MG/10 ML SYRUP UDCUP PO PRN (12:00)
[2018-11-21] MEDS ORDERED: PROMETHAZINE HCL 25 MG TABLET PO PRN (12:00)
[2018-11-21] MEDS: THIAMINE HCL 100 MG TABLET PO SCH (17:18)
[2018-11-21] MEDS: GABAPENTIN 400 MG CAPSULE PO SCH (20:44)
[2018-11-21 21:40] VITALS: BP 121/77
[2018-11-22 05:30] VITALS: BP 115/65
[2018-11-22] MEDS: LEVOTHYROXINE SODIUM 50 MCG TABLET PO SCH (06:57)
[2018-11-22 08:37] VITALS: BP 123/78
[2018-11-22] MEDS: THIAMINE HCL 100 MG TABLET PO SCH ×2 (09:23→17:13)
[2018-11-22] MEDS: GABAPENTIN 400 MG CAPSULE PO SCH ×4 (09:23→20:21)
[2018-11-22] MEDS: FOLIC ACID 1 MG TABLET PO SCH (09:23)
[2018-11-22] MEDS: MULTIVITAMINS WITH MINERALS, THERAPEUTIC TABLET PO SCH (09:23)
[2018-11-22] MEDS: ACAMPROSATE CALCIUM 333 MG DR TABLET PO SCH ×3 (09:23→17:13)
[2018-11-22] MEDS: BuPROPion HCL XL 150 MG ER TABLET PO SCH (09:23)
[2018-11-22] MEDS: METHADONE HCL 10 MG/5 ML SOLUTION ORAL.SYG PO SCH (09:24)
[2018-11-22] MEDS: HydrOXYzine PAMOATE 50 MG CAPSULE PO PRN ×2 (13:20→20:21)
[2018-11-22 13:29] LABS: GLUCOMETER DEV NAME(LOC) BV2X.; GLUCOSE,POINT OF CARE 106 MG/DL (70-110)
[2018-11-22 16:15] VITALS: BP 124/77
[2018-11-23 00:38] VITALS: BP 135/70
[2018-11-23] MEDS: LEVOTHYROXINE SODIUM 50 MCG TABLET PO SCH (06:54)
[2018-11-23 08:39] VITALS: BP 109/65
[2018-11-23] MEDS: METHADONE HCL 10 MG/5 ML SOLUTION ORAL.SYG PO SCH (10:22)
[2018-11-23] MEDS: THIAMINE HCL 100 MG TABLET PO SCH ×2 (10:23→16:53)
[2018-11-23] MEDS: BuPROPion HCL XL 150 MG ER TABLET PO SCH (10:23)
[2018-11-23] MEDS: GABAPENTIN 400 MG CAPSULE PO SCH ×2 (10:23→12:38)
[2018-11-23] MEDS: MULTIVITAMINS WITH MINERALS, THERAPEUTIC TABLET PO SCH (10:23)
[2018-11-23] MEDS: ACAMPROSATE CALCIUM 333 MG DR TABLET PO SCH ×3 (10:23→16:52)
[2018-11-23] MEDS: FOLIC ACID 1 MG TABLET PO SCH (10:24)
[2018-11-23 16:23] VITALS: BP 122/81
[2018-11-23] MEDS: GABAPENTIN 300 MG CAPSULE PO SCH (16:53)
[2018-11-24 00:29] VITALS: BP 126/69
[2018-11-24] MEDS: LEVOTHYROXINE SODIUM 50 MCG TABLET PO SCH (05:30)
[2018-11-24] MEDS: METHADONE HCL 10 MG/5 ML SOLUTION ORAL.SYG PO SCH (08:26)
[2018-11-24] MEDS: BuPROPion HCL XL 150 MG ER TABLET PO SCH (08:26)
[2018-11-24] MEDS: GABAPENTIN 300 MG CAPSULE PO SCH ×3 (08:26→16:29)
[2018-11-24] MEDS: MULTIVITAMINS WITH MINERALS, THERAPEUTIC TABLET PO SCH (08:27)
[2018-11-24] MEDS: FOLIC ACID 1 MG TABLET PO SCH (08:27)
[2018-11-24] MEDS: ACAMPROSATE CALCIUM 333 MG DR TABLET PO SCH ×3 (08:27→16:28)
[2018-11-24] MEDS: THIAMINE HCL 100 MG TABLET PO SCH ×2 (08:27→16:29)
[2018-11-24 08:33] VITALS: BP 112/63
[2018-11-24] MEDS ORDERED: PALIPERIDONE PALMITATE 156 MG/ML SYRINGE IM ONE (09:00)
[2018-11-24 16:20] VITALS: BP 112/70
[2018-11-25 00:30] VITALS: BP 117/63
[2018-11-25] MEDS: LEVOTHYROXINE SODIUM 50 MCG TABLET PO SCH (06:51)
[2018-11-25 08:42] VITALS: BP 122/67
[2018-11-25] MEDS: THIAMINE HCL 100 MG TABLET PO SCH ×2 (08:45→17:00)
[2018-11-25] MEDS: MULTIVITAMINS WITH MINERALS, THERAPEUTIC TABLET PO SCH (08:45)
[2018-11-25] MEDS: BuPROPion HCL XL 150 MG ER TABLET PO SCH (08:45)
[2018-11-25] MEDS: FOLIC ACID 1 MG TABLET PO SCH (08:45)
[2018-11-25] MEDS: ACAMPROSATE CALCIUM 333 MG DR TABLET PO SCH ×3 (08:45→17:00)
[2018-11-25] MEDS: GABAPENTIN 300 MG CAPSULE PO SCH ×3 (08:45→17:00)
[2018-11-25] MEDS: METHADONE HCL 10 MG/5 ML SOLUTION ORAL.SYG PO SCH (08:47)
[2018-11-25] MEDS: HydrOXYzine PAMOATE 50 MG CAPSULE PO PRN (11:58)
[2018-11-25 13:44] LABS: GLUCOMETER DEV NAME(LOC) BV2X.; GLUCOSE,POINT OF CARE 109 MG/DL (70-110)
[2018-11-25] MEDS ORDERED: METH10SO PO (21:50)
[2018-11-25] MEDS ORDERED: GABA-533 PO (21:51)
[2018-11-25] MEDS ORDERED: BUPR-93 PO (21:52)
== END 2018-11-25 21:30 | disposition home or self-care (01) | DRG 750 ==
LOC: B2S 21:26
PROVIDERS: ADMIT Psychiatry & Neurology Psychiatry; ATTEND Psychiatry & Neurology Psychiatry
DX: F25.0 Schizoaffective disorder, bipolar type (principal); J18.9 Pneumonia, unspecified organism; R45.851 Suicidal ideations; F11.20 Opioid dependence, uncomplicated; J44.0 Chronic obstructive pulmonary disease with (acute) lower respiratory infection; B18.2 Chronic viral hepatitis C; K21.9 Gastro-esophageal reflux disease without esophagitis; E03.9 Hypothyroidism, unspecified; R03.0 Elevated blood-pressure reading, without diagnosis of hypertension; M19.90 Unspecified osteoarthritis, unspecified site; H26.9 Unspecified cataract; Z59.0 Homelessness; Z91.19 Patient's noncompliance with other medical treatment and regimen
CPT/HCPCS: 84439; 84443; 87081

== ENCOUNTER 2018-12-05 16:35 | Emergency (ER) | payer MEDICAID, OTHER ==
[~2018-12-05] VITALS: Ht 188 cm; Wt 81.0 kg
[~2018-12-05 16:35] MED LIST changes: -AMLO-511 PO; -BENZ-51 PO; -BUPR-47 PO; +BUPR-93 PO; +METH10SO PO; -PRED20 PO; -QUET200T29 PO; -TIOT185 IH
[2018-12-05] MEDS ORDERED: NITR.4 SL (16:58)
[2018-12-05] MEDS ORDERED: GABA-531 PO (17:06)
[2018-12-05] MEDS ORDERED: LEVO50 PO (17:06)
[2018-12-05 17:08] LABS: BASOPHILS % (AUTO) 0.4 % (0.0-2.0); EOSINOPHILS % (AUTO) 0.6 % (1.0-6.0); HEMATOCRIT 38.3 % (41-53); HEMOGLOBIN 12.6 g/dL (13.5-17.5); LYMPHOCYTES # (AUTO) 0.8 K/uL (1.0-4.8); LYMPHOCYTES % (AUTO) 9.4 % (22.0-44.0); MEAN CORPUSCULAR HEMOGLOBIN 28.1 pg (26.0-34.0); MEAN CORPUSCULAR HGB CONC 32.8 G/dL (31.0-37.0); MEAN CORPUSCULAR VOLUME 86 fL (80-100); MONOCYTES # (AUTO) 0.7 K/uL (0.1-1.0); MONOCYTES % (AUTO) 8.3 % (2.0-9.0); NEUTROPHILS # (AUTO) 6.9 K/uL (1.8-7.7); NEUTROPHILS % (AUTO) 81.3 % (40.0-70.0); PLATELET COUNT (AUTO) 234 K/uL (150-450); RED BLOOD CELL COUNT(AUTO) 4.47 MIL/uL (4.50-5.90); RED CELL DISTRIBUTION WIDTH 16.4 % (11.5-14.5)
[2018-12-05 17:22] LABS: ALANINE AMINOTRANSFERASE 20 U/L (12-78); ALBUMIN 2.9 g/dL (3.4-5.0); ALKALINE PHOSPHATASE 64 U/L (46-116); ANION GAP 11 mmol/L (8-16); ASPARTATE AMINOTRANSFERASE 12 U/L (15-37); BILIRUBIN,TOTAL 0.3 mg/dL (0.1-1.0); CALCIUM, TOTAL 8.7 mg/dL (8.8-10.5); CARBON DIOXIDE 26 mmol/L (22-29); CHLORIDE 97 mmol/L (98-107); CREATINE KINASE, TOTAL ONLY 30 U/L (39-308); CREATININE 0.91 mg/dL (0.60-1.30); GLOMERULAR FILTR. RATE CALC > 60 mL/min (>60); GLUCOSE,RANDOM 100 mg/dL (70-110); SODIUM SERUM 134 mmol/L (136-145); TOTAL PROTEIN, SERUM 6.2 g/dL (6.4-8.2); UREA NITROGEN, BLOOD 14 mg/dL (7-18)
[2018-12-05 17:25] LABS: B-TYPE NATRIURETIC PEPTIDE 40 pg/mL (0-100)
[2018-12-05 17:26] LABS: POTASSIUM 2.7 mmol/L (3.5-5.1)
[2018-12-05 17:41] LABS: PROTHROMBIN TIME 10.6 SEC (9.4-11.6)
[2018-12-05] MEDS: PredniSONE 20 MG TABLET PO ONE (17:55)
[2018-12-05] MEDS: POTASSIUM CHLORIDE 20 MEQ ER TABLET PO ONE (17:56)
[2018-12-05] MEDS: POTASSIUM CHL 20 MEQ/0.9% NS 1,000 ML IV ONE (17:57)
[2018-12-05] MEDS: IPRATROPIUM BROMIDE 0.5 MG/2.5 ML NEB SOLUTION NEB ONE (18:45)
[2018-12-05] MEDS: ALBUTEROL SULFATE 5 MG/ML 20 ML NEB SOLN [BULK] NEB ONE (18:45)
[2018-12-05 19:52] VITALS: BP 124/76
== END 2018-12-05 20:00 | disposition left against medical advice (07) ==
LOC: EMS 16:38
DX: J44.9 Chronic obstructive pulmonary disease, unspecified (principal); E87.6 Hypokalemia; F31.9 Bipolar disorder, unspecified; K21.9 Gastro-esophageal reflux disease without esophagitis; I10 Essential (primary) hypertension; E03.9 Hypothyroidism, unspecified; F20.9 Schizophrenia, unspecified; F17.210 Nicotine dependence, cigarettes, uncomplicated; F11.90 Opioid use, unspecified, uncomplicated; Z59.0 Homelessness
CPT/HCPCS: 71045; 80053; 82550; 83880; 84484; 85025; 85610; 85730; 93005; 94640; 96365; 99285; J3480; J7512

== ENCOUNTER 2018-12-11 16:30 | Inpatient (IN) | payer MEDICAID ==
[~2018-12-11] VITALS: Ht 188 cm; Wt 82.6 kg
[~2018-12-11 16:30] MED LIST changes: -ACAM333T7 PO; +GABA-531 PO; -GABA-533 PO; +LEVO50 PO; -LEVO75 PO; +NITR.4 SL
[2018-12-11] MEDS ORDERED: HALOPERIDOL 5 MG TABLET PO PRN (18:45)
[2018-12-11] MEDS ORDERED: ZOLPIDEM TARTRATE 10 MG TABLET PO PRN (18:45)
[2018-12-11 19:00] VITALS: BP 110/66
[2018-12-11] MEDS: LORazepam 2 MG TABLET PO PRN (20:01)
[2018-12-11] MEDS: GABAPENTIN 300 MG CAPSULE PO SCH (20:01)
[2018-12-12 06:24] VITALS: BP 116/76
[2018-12-12] MEDS: LEVOTHYROXINE SODIUM 50 MCG TABLET PO SCH (06:52)
[2018-12-12 08:11] VITALS: BP 95/60
[2018-12-12] MEDS: GABAPENTIN 300 MG CAPSULE PO SCH ×3 (09:14→16:56)
[2018-12-12] MEDS: THIAMINE HCL 100 MG TABLET PO SCH ×2 (09:14→16:56)
[2018-12-12] MEDS: MULTIVITAMINS, THERAPEUTIC TABLET PO SCH (09:14)
[2018-12-12] MEDS: BuPROPion HCL XL 150 MG ER TABLET PO SCH (09:14)
[2018-12-12] MEDS: LORazepam 2 MG TABLET PO PRN (09:15)
[2018-12-12] MEDS: FOLIC ACID 1 MG TABLET PO SCH (09:15)
[2018-12-12] MEDS: METHADONE HCL 10 MG TABLET PO SCH (15:27)
[2018-12-12] MEDS ORDERED: LOPERAMIDE HCL 2 MG CAPSULE PO PRN (15:30)
[2018-12-12] MEDS ORDERED: MAGNESIUM HYDROXIDE SUSPENSION 30 ML UDCUP PO PRN (15:30)
[2018-12-12] MEDS ORDERED: MAG HYDROX/AL HYDROX/SIMETH ES 30 ML SUSPENSION UDCUP PO PRN (15:30)
[2018-12-12] MEDS ORDERED: PROMETHAZINE HCL 25 MG TABLET PO PRN (15:30)
[2018-12-12] MEDS ORDERED: ACETAMINOPHEN 325 MG TABLET PO PRN (15:30)
[2018-12-12 16:23] VITALS: BP 115/74
[2018-12-12] MEDS: ACAMPROSATE CALCIUM 333 MG DR TABLET PO SCH (17:02)
[2018-12-12] MEDS ORDERED: LORazepam 0.5 MG TABLET PO PRN (18:45)
[2018-12-12] MEDS ORDERED: QUEtiapine FUMARATE 300 MG TABLET PO SCH (21:00)
[2018-12-12] MEDS ORDERED: QUEtiapine FUMARATE 200 MG TABLET PO SCH (21:00)
[2018-12-13] MEDS: LEVOTHYROXINE SODIUM 50 MCG TABLET PO SCH (06:33)
[2018-12-13 06:46] VITALS: BP 106/66
[2018-12-13 08:23] VITALS: BP 103/66
[2018-12-13] MEDS: ACAMPROSATE CALCIUM 333 MG DR TABLET PO SCH ×3 (08:54→17:10)
[2018-12-13] MEDS: THIAMINE HCL 100 MG TABLET PO SCH ×2 (08:54→17:10)
[2018-12-13] MEDS: BuPROPion HCL XL 150 MG ER TABLET PO SCH (08:54)
[2018-12-13] MEDS: MULTIVITAMINS, THERAPEUTIC TABLET PO SCH (08:54)
[2018-12-13] MEDS: GABAPENTIN 300 MG CAPSULE PO SCH ×3 (08:55→17:10)
[2018-12-13] MEDS: METHADONE HCL 10 MG TABLET PO SCH (08:55)
[2018-12-13] MEDS: FOLIC ACID 1 MG TABLET PO SCH (08:55)
[2018-12-13 16:13] VITALS: BP 109/62
[2018-12-13] MEDS ORDERED: QUEtiapine FUMARATE 300 MG TABLET PO SCH (21:00)
[2018-12-14 06:29] VITALS: BP 112/72
[2018-12-14] MEDS: LEVOTHYROXINE SODIUM 50 MCG TABLET PO SCH (06:36)
[2018-12-14 08:43] LABS: BASOPHILS % (AUTO) 0.4 % (0.0-2.0); EOSINOPHILS % (AUTO) 4.1 % (1.0-6.0); HEMATOCRIT 34.2 % (41-53); HEMOGLOBIN 11.3 g/dL (13.5-17.5); LYMPHOCYTES # (AUTO) 1.2 K/uL (1.0-4.8); LYMPHOCYTES % (AUTO) 24.1 % (22.0-44.0); MEAN CORPUSCULAR HEMOGLOBIN 28.7 pg (26.0-34.0); MEAN CORPUSCULAR HGB CONC 33.1 G/dL (31.0-37.0); MEAN CORPUSCULAR VOLUME 87 fL (80-100); MONOCYTES # (AUTO) 0.5 K/uL (0.1-1.0); MONOCYTES % (AUTO) 10.6 % (2.0-9.0); NEUTROPHILS # (AUTO) 3.2 K/uL (1.8-7.7); NEUTROPHILS % (AUTO) 60.8 % (40.0-70.0); PLATELET COUNT (AUTO) 211 K/uL (150-450); RED BLOOD CELL COUNT(AUTO) 3.95 MIL/uL (4.50-5.90); RED CELL DISTRIBUTION WIDTH 16.5 % (11.5-14.5)
[2018-12-14 08:53] VITALS: BP 108/62
[2018-12-14 08:56] LABS: ALANINE AMINOTRANSFERASE 16 U/L (12-78); ALBUMIN 2.8 g/dL (3.4-5.0); ALKALINE PHOSPHATASE 67 U/L (46-116); ANION GAP 5 mmol/L (8-16); ASPARTATE AMINOTRANSFERASE 13 U/L (15-37); BILIRUBIN,TOTAL 0.2 mg/dL (0.1-1.0); CALCIUM, TOTAL 8.8 mg/dL (8.8-10.5); CARBON DIOXIDE 31 mmol/L (22-29); CHLORIDE 103 mmol/L (98-107); CHOL/HDL RATIO 2.5 (4.2-7.3); CHOLESTEROL 137 mg/dL (131-200); CREATININE 0.89 mg/dL (0.60-1.30); GLOMERULAR FILTR. RATE CALC > 60 mL/min (>60); GLUCOSE,RANDOM 88 mg/dL (70-110); HDL CHOLESTEROL 55 mg/dL (40-60); LDL CHOL (CALC.) 66 mg/dL (0-130); POTASSIUM 4.3 mmol/L (3.5-5.1); SODIUM SERUM 139 mmol/L (136-145); TOTAL PROTEIN, SERUM 5.5 g/dL (6.4-8.2); TRIGLYCERIDES 82 mg/dL (15-150); UREA NITROGEN, BLOOD 18 mg/dL (7-18)
[2018-12-14 08:59] LABS: HEMOGLOBIN A1C 5.6 % (4.5-6.2)
[2018-12-14] MEDS ORDERED: METHADONE HCL 10 MG/5 ML SOLUTION ORAL.SYG PO SCH (09:00)
[2018-12-14] MEDS: GABAPENTIN 300 MG CAPSULE PO SCH ×3 (09:58→16:53)
[2018-12-14] MEDS: FOLIC ACID 1 MG TABLET PO SCH (09:58)
[2018-12-14] MEDS: MULTIVITAMINS, THERAPEUTIC TABLET PO SCH (09:58)
[2018-12-14] MEDS: ACAMPROSATE CALCIUM 333 MG DR TABLET PO SCH ×3 (09:58→16:53)
[2018-12-14] MEDS: THIAMINE HCL 100 MG TABLET PO SCH ×2 (09:58→16:53)
[2018-12-14] MEDS: BuPROPion HCL XL 150 MG ER TABLET PO SCH (09:58)
[2018-12-14 16:30] VITALS: BP 112/69
[2018-12-14] MEDS ORDERED: QUET300T2 PO (22:29)
[2018-12-14] MEDS ORDERED: ACAM333T7 PO (22:30)
== END 2018-12-14 22:00 | disposition short-term general hospital (02) | DRG 750 ==
LOC: B3A 18:39 → B2S 12-14 13:49
PROVIDERS: ADMIT Psychiatry & Neurology Psychiatry; ATTEND Psychiatry & Neurology Psychiatry
DX: F25.9 Schizoaffective disorder, unspecified (principal); Z59.0 Homelessness; J44.9 Chronic obstructive pulmonary disease, unspecified; B18.2 Chronic viral hepatitis C; Z91.19 Patient's noncompliance with other medical treatment and regimen; K21.9 Gastro-esophageal reflux disease without esophagitis; I10 Essential (primary) hypertension; E03.9 Hypothyroidism, unspecified
CPT/HCPCS: 83036; 87081

== ENCOUNTER 2020-01-11 14:41 | Inpatient (IN) | payer MEDICAID, OTHER ==
[~2020-01-11] VITALS: Ht 188 cm; Wt 77.0 kg
[~2020-01-11 14:41] MED LIST changes: +ACAM333T7 PO; +IPRA4AER IH; -NITR.4 SL; +NITR0.4T52 SL; +QUET100T PO; +QUET300T2 PO
[2020-01-11] MEDS ORDERED: ACETAMINOPHEN 500 MG TABLET PO ONE (15:30)
[2020-01-11] MEDS ORDERED: DiphenhydrAMINE HCL 50 MG/ML VIAL IM ONE (15:45)
[2020-01-11] MEDS ORDERED: LORazepam 2 MG/ML VIAL IM ONE (15:45)
[2020-01-11] MEDS ORDERED: HALOPERIDOL LACTATE 5 MG/ML VIAL IM ONE (15:45)
[2020-01-11 16:23] LABS: BASOPHILS % (AUTO) 0.6 % (0.0-2.0); EOSINOPHILS % (AUTO) 1.2 % (1.0-6.0); HEMATOCRIT 39.4 % (41-53); HEMOGLOBIN 12.8 g/dL (13.5-17.5); LYMPHOCYTES # (AUTO) 0.7 K/uL (1.0-4.8); LYMPHOCYTES % (AUTO) 12.4 % (22.0-44.0); MEAN CORPUSCULAR HEMOGLOBIN 30.4 pg (26.0-34.0); MEAN CORPUSCULAR HGB CONC 32.5 G/dL (31.0-37.0); MEAN CORPUSCULAR VOLUME 94 fL (80-100); MONOCYTES # (AUTO) 0.4 K/uL (0.1-1.0); MONOCYTES % (AUTO) 6.8 % (2.0-9.0); NEUTROPHILS # (AUTO) 4.2 K/uL (1.8-7.7); PLATELET COUNT (AUTO) 238 K/uL (150-450); RED CELL DISTRIBUTION WIDTH 15.4 % (11.5-14.5)
[2020-01-11 16:33] LABS: ANION GAP 12 mmol/L (8-16); CALCIUM, TOTAL 9.1 mg/dL (8.8-10.5); CARBON DIOXIDE 25 mmol/L (22-29); CHLORIDE 100 mmol/L (98-107); CREATININE 1.09 mg/dL (0.60-1.30); GLOMERULAR FILTR. RATE CALC > 60 mL/min (>60); GLUCOSE,RANDOM 82 mg/dL (70-110); POTASSIUM 4.3 mmol/L (3.5-5.1); SODIUM SERUM 137 mmol/L (136-145); UREA NITROGEN, BLOOD 9 mg/dL (7-18)
[2020-01-11 16:39] LABS: ALANINE AMINOTRANSFERASE 18 U/L (12-78); ALBUMIN 3.7 g/dL (3.4-5.0); ALKALINE PHOSPHATASE 111 U/L (46-116); ASPARTATE AMINOTRANSFERASE 20 U/L (15-37); BILIRUBIN,TOTAL 0.2 mg/dL (0.1-1.0); TOTAL PROTEIN, SERUM 7.6 g/dL (6.4-8.2)
[2020-01-11 17:16] LABS: AMPHET/METH SCREEN,URINE NEGATIVE (NEGATIVE); BARBITURATE SCREEN, URINE NEGATIVE (NEGATIVE); BENZODIAZEPINES SCREEN,URINE NEGATIVE (NEGATIVE); CANNABINOID SCREEN,URINE NEGATIVE (NEGATIVE); COCAINE SCREEN,URINE NEGATIVE (NEGATIVE); METHADONE SCREEN, URINE POSITIVE (NEGATIVE); OPIATE SCREEN,URINE NEGATIVE (NEGATIVE)
[2020-01-11 17:25] LABS: APPEARANCE,URINE CLEAR (CLEAR); BILIRUBIN,URINE NEGATIVE (NEGATIVE); GLUCOSE, URINE (UA) NEGATIVE (NEGATIVE); KETONES,URINE NEGATIVE (NEGATIVE); LEUKOCYTE ESTERASE ,URINE SMALL (NEGATIVE); NITRATE,URINE NEGATIVE (NEGATIVE); OCCULT BLOOD,URINE NEGATIVE (NEGATIVE); PROTEIN,URINE NEGATIVE (NEGATIVE)
[2020-01-11 17:27] LABS: PHENCYCLIDINE SCREEN,URINE NEGATIVE (NEGATIVE)
[2020-01-11 17:38] LABS: BACTERIA,URINE None Seen /HPF (None Seen); RBC,URINE None Seen /HPF (0-2); SQUAMOUS EPITHELIAL CELL,UR Few /LPF (None Seen)
[2020-01-11] MEDS ORDERED: HALOPERIDOL 5 MG TABLET PO PRN (18:00)
[2020-01-11] MEDS ORDERED: ZOLPIDEM TARTRATE 10 MG TABLET PO PRN (18:00)
[2020-01-11] MEDS ORDERED: CloNIDine HCL 0.1 MG TABLET PO ONE (20:15)
[2020-01-11 22:44] VITALS: BP 159/101
[2020-01-11] MEDS ORDERED: ALBUTEROL SULFATE/IPRATROPIUM 100-20 MCG/SPRAY 4 GM INHALER IH PRN (23:15)
[2020-01-11] MEDS: LORazepam 2 MG TABLET PO PRN (23:52)
[2020-01-12 05:46] VITALS: BP 142/88
[2020-01-12] MEDS: LORazepam 2 MG TABLET PO PRN (06:32)
[2020-01-12] MEDS: LEVOTHYROXINE SODIUM 50 MCG TABLET PO SCH (06:32)
[2020-01-12 08:10] VITALS: BP 161/87
[2020-01-12] MEDS: AmLODIPine BESYLATE 10 MG TABLET PO SCH (08:33)
[2020-01-12] MEDS: FOLIC ACID 1 MG TABLET PO SCH (08:33)
[2020-01-12] MEDS: THIAMINE HCL 100 MG TABLET PO SCH (08:33)
[2020-01-12] MEDS: NICOTINE 14 MG/24 HOUR PATCH TD SCH (08:34)
[2020-01-12] MEDS: ACAMPROSATE CALCIUM 333 MG DR TABLET PO SCH ×3 (10:13→16:23)
[2020-01-12] MEDS: METHADONE HCL 10 MG/5 ML SOLUTION ORAL.SYG PO SCH (10:20)
[2020-01-12] MEDS ORDERED: PETROLATUM,WHITE 28 GM JELLY TP PRN (12:00)
[2020-01-12] MEDS ORDERED: LOPERAMIDE HCL 2 MG CAPSULE PO PRN (12:00)
[2020-01-12] MEDS ORDERED: CloNIDine HCL 0.1 MG TABLET PO PRN (12:00)
[2020-01-12] MEDS ORDERED: IBUPROFEN 400 MG TABLET PO PRN (12:00)
[2020-01-12] MEDS ORDERED: ALBUTEROL SULFATE HFA 90 MCG/PUFF 8 GM INHALER IH PRN (12:00)
[2020-01-12] MEDS ORDERED: MAGNESIUM HYDROXIDE SUSPENSION 30 ML UDCUP PO PRN (12:00)
[2020-01-12] MEDS ORDERED: ALBUTEROL SULFATE/IPRATROPIUM 100-20 MCG/SPRAY 4 GM INHALER IH PRN (12:00)
[2020-01-12] MEDS ORDERED: AmLODIPine BESYLATE 5 MG TABLET PO SCH (12:00)
[2020-01-12] MEDS ORDERED: ONDANSETRON HCL 4 MG TABLET PO PRN (12:00)
[2020-01-12] MEDS ORDERED: ACETAMINOPHEN 325 MG TABLET PO PRN (12:00)
[2020-01-12] MEDS ORDERED: NICOTINE 14 MG/24 HOUR PATCH TD PRN (12:00)
[2020-01-12] MEDS ORDERED: DOCUSATE SODIUM 100 MG CAPSULE PO PRN (12:00)
[2020-01-12] MEDS ORDERED: GuaiFENesin/D-METHORPHAN [SUGAR-FREE] 200-20MG/10 ML SYRUP UDCUP PO PRN (12:00)
[2020-01-12 16:00] VITALS: BP 125/96
[2020-01-12] MEDS: MAG HYDROX/AL HYDROX/SIMETH ES 30 ML SUSPENSION UDCUP PO PRN (17:10)
[2020-01-12] MEDS ORDERED: QUEtiapine FUMARATE 300 MG TABLET PO SCH (21:00)
[2020-01-13] MEDS ORDERED: LEVOTHYROXINE SODIUM 50 MCG TABLET PO SCH (07:00)
[2020-01-13] MEDS: LEVOTHYROXINE SODIUM 50 MCG TABLET PO SCH (07:13)
[2020-01-13] MEDS: AmLODIPine BESYLATE 10 MG TABLET PO SCH (08:32)
[2020-01-13] MEDS: THIAMINE HCL 100 MG TABLET PO SCH (08:33)
[2020-01-13] MEDS: FOLIC ACID 1 MG TABLET PO SCH (08:33)
[2020-01-13] MEDS: ACAMPROSATE CALCIUM 333 MG DR TABLET PO SCH ×2 (08:33→12:51)
[2020-01-13] MEDS: NICOTINE 14 MG/24 HOUR PATCH TD SCH (08:35)
[2020-01-13] MEDS: METHADONE HCL 10 MG/5 ML SOLUTION ORAL.SYG PO SCH (08:38)
[2020-01-13] MEDS ORDERED: BuPROPion HCL XL 150 MG ER TABLET PO SCH (09:00)
[2020-01-13] MEDS ORDERED: MULTIVITAMINS, THERAPEUTIC TABLET PO SCH (09:00)
[2020-01-13] MEDS ORDERED: MUPIROCIN CALCIUM 2% 22 GM OINTMENT NASAL SCH (09:45)
[2020-01-13 10:31] VITALS: BP 149/98
[2020-01-13] MEDS ORDERED: AMLO10TA7 PO (13:55)
[2020-01-13] MEDS ORDERED: MUPI15CR12 TP (13:57)
[2020-01-13] MEDS: MAG HYDROX/AL HYDROX/SIMETH ES 30 ML SUSPENSION UDCUP PO PRN (14:44)
== END 2020-01-13 15:38 | disposition home or self-care (01) | DRG 885 ==
LOC: EMS 14:46 → 3EI 18:00
PROVIDERS: ADMIT Psychiatry & Neurology Psychiatry; ATTEND Psychiatry & Neurology Psychiatry
DX: F25.0 Schizoaffective disorder, bipolar type (principal); N18.9 Chronic kidney disease, unspecified; R45.851 Suicidal ideations; E03.9 Hypothyroidism, unspecified; F10.10 Alcohol abuse, uncomplicated; K21.9 Gastro-esophageal reflux disease without esophagitis; J44.9 Chronic obstructive pulmonary disease, unspecified; M19.90 Unspecified osteoarthritis, unspecified site; F19.10 Other psychoactive substance abuse, uncomplicated; I12.9 Hypertensive chronic kidney disease with stage 1 through stage 4 chronic kidney disease, or unspecified chronic kidney disease; Z87.891 Personal history of nicotine dependence
CPT/HCPCS: 87081; 93005; G0480; J1200; J1630; J2060

== ENCOUNTER 2020-11-18 15:24 | Emergency (ER) | payer MEDICAID, OTHER ==
[~2020-11-18] VITALS: Ht 180.3 cm; Wt 80.8 kg
[~2020-11-18 15:24] MED LIST changes: +AMLO-258 PO; +FOLI-130 PO; -FOLI1 PO; -GABA-531 PO; -IPRA4AER IH; +MUPI15CR12 TP; -NITR0.4T52 SL; -QUET300T2 PO; -THIA100T67 PO; +THIAMINE HCL100 MG PO
[2020-11-18] MEDS ORDERED: IOVERSOL 350 MG/ML 100 ML VIAL ONE (15:37)
[2020-11-18] MEDS ORDERED: SODIUM CHLORIDE 0.9% 100 ML ONE (15:37)
[2020-11-18 15:59] LABS: BASOPHILS % (AUTO) 0.5 % (0.0-2.0); EOSINOPHILS % (AUTO) 7.6 % (1.0-6.0); HEMATOCRIT 36.2 % (41-53); HEMOGLOBIN 11.8 g/dL (13.5-17.5); LYMPHOCYTES # (AUTO) 1.8 K/uL (1.0-4.8); LYMPHOCYTES % (AUTO) 25.3 % (22.0-44.0); MEAN CORPUSCULAR HEMOGLOBIN 31.6 pg (26.0-34.0); MEAN CORPUSCULAR HGB CONC 32.6 G/dL (31.0-37.0); MEAN CORPUSCULAR VOLUME 97 fL (80-100); MONOCYTES # (AUTO) 0.8 K/uL (0.1-1.0); MONOCYTES % (AUTO) 11.3 % (2.0-9.0); NEUTROPHILS # (AUTO) 3.8 K/uL (1.8-7.7); NEUTROPHILS % (AUTO) 55.3 % (40.0-70.0); PLATELET COUNT (AUTO) 240 K/uL (150-450); RED BLOOD CELL COUNT(AUTO) 3.73 MIL/uL (4.50-5.90); RED CELL DISTRIBUTION WIDTH 17.6 % (11.5-14.5)
[2020-11-18 16:11] LABS: ANION GAP 11 mmol/L (8-16); CALCIUM, TOTAL 8.9 mg/dL (8.8-10.5); CARBON DIOXIDE 25 mmol/L (22-29); CHLORIDE 100 mmol/L (98-107); CREATININE 1.19 mg/dL (0.60-1.30); GLOMERULAR FILTR. RATE CALC > 60 mL/min (>60); GLUCOSE,RANDOM 55 mg/dL (70-110); POTASSIUM 3.9 mmol/L (3.5-5.1); SODIUM SERUM 136 mmol/L (136-145); UREA NITROGEN, BLOOD 12 mg/dL (7-18)
[2020-11-18 16:13] LABS: PROTHROMBIN TIME 10.5 SEC (9.4-11.6)
[2020-11-18 16:13] LABS: APPEARANCE,URINE CLEAR (CLEAR); BILIRUBIN,URINE NEGATIVE (NEGATIVE); GLUCOSE, URINE (UA) NEGATIVE (NEGATIVE); KETONES,URINE NEGATIVE (NEGATIVE); LEUKOCYTE ESTERASE ,URINE NEGATIVE (NEGATIVE); NITRATE,URINE NEGATIVE (NEGATIVE); OCCULT BLOOD,URINE NEGATIVE (NEGATIVE); PH,URINE 7.5 (5.0-8.0); PROTEIN,URINE NEGATIVE (NEGATIVE)
[2020-11-18 16:18] LABS: AMPHET/METH SCREEN,URINE NEGATIVE (NEGATIVE); BARBITURATE SCREEN, URINE NEGATIVE (NEGATIVE); BENZODIAZEPINES SCREEN,URINE POSITIVE (NEGATIVE); CANNABINOID SCREEN,URINE NEGATIVE (NEGATIVE); COCAINE SCREEN,URINE NEGATIVE (NEGATIVE); METHADONE SCREEN, URINE POSITIVE (NEGATIVE); OPIATE SCREEN,URINE NEGATIVE (NEGATIVE)
[2020-11-18 16:19] LABS: PHENCYCLIDINE SCREEN,URINE NEGATIVE (NEGATIVE)
[2020-11-18 16:20] LABS: ALANINE AMINOTRANSFERASE 20 U/L (12-78); ALBUMIN 3.2 g/dL (3.4-5.0); ALKALINE PHOSPHATASE 133 U/L (46-116); ASPARTATE AMINOTRANSFERASE 18 U/L (15-37); BILIRUBIN,TOTAL 0.3 mg/dL (0.1-1.0); TOTAL PROTEIN, SERUM 7.4 g/dL (6.4-8.2)
[2020-11-18 16:22] LABS: BACTERIA,URINE None Seen /HPF (None Seen); RBC,URINE None Seen /HPF (0-2); WBC,URINE None Seen /HPF (0-5)
[2020-11-18] MEDS ORDERED: ASPIRIN 81 MG CHEWABLE TABLET PO ONE (16:30)
[2020-11-18 17:08] VITALS: BP 166/96
[2020-11-18 19:47] LABS: GLUCOSE,POINT OF CARE 107 MG/DL (70-110)
== END 2020-11-18 22:00 | disposition home or self-care (01) ==
LOC: EMS 15:24
DX: F13.10 Sedative, hypnotic or anxiolytic abuse, uncomplicated (principal); E16.2 Hypoglycemia, unspecified; F32.9 Major depressive disorder, single episode, unspecified; I10 Essential (primary) hypertension; E03.9 Hypothyroidism, unspecified; Z87.891 Personal history of nicotine dependence; Z79.899 Other long term (current) drug therapy; Z59.0 Homelessness
CPT/HCPCS: 36415; 70450; 71045; 80053; 80307; 81001; 82962; 84484; 85025; 85610; 85730; 86850; 86900; 86901; 93005; 99285; J7050; Q9967; 82948